=== PATIENT | female | born 1970 | race Caucasian/White ===

== ENCOUNTER 2022-08-06 00:43 | Outpatient (REF) | payer MEDICARE, MEDICAID, SELFPAY ==
[2022-08-06 10:13] LABS: Ammonia 38 umol/L (11-32)
[2022-08-06 10:32] LABS: Alanine Aminotransferase 63 U/L (14-59); Albumin Globulin Ratio 0.6; Albumin Level 2.2 g/dL (3.4-5.0); Alkaline Phosphatase 120 U/L (46-116); Aspartate Amino Transferase 42 U/L (15-37); Bilirubin Direct 0.1 mg/dL (0.0-0.2); Bilirubin Total 0.3 mg/dL (0.2-1.0); Gamma Glutamyl Transpeptidase 12 U/L (8-55); Globulin 3.6 g/dL; Total Protein 5.8 g/dL (6.4-8.2)
== END 2022-08-06 00:44 ==
LOC: LAB 00:43
DX: E11.9 Type 2 diabetes mellitus without complications (principal); G93.40 Encephalopathy, unspecified
CPT/HCPCS: 36415; 80076; 82140; 82977

== ENCOUNTER 2022-11-05 01:21 | Outpatient (REF) | payer MEDICARE, MEDICAID, SELFPAY ==
[2022-11-05 06:30] LABS: Alanine Aminotransferase 40 U/L (14-59); Albumin Globulin Ratio 0.7; Albumin Level 2.3 g/dL (3.4-5.0); Alkaline Phosphatase 115 U/L (46-116); Anion Gap 9.2; Aspartate Amino Transferase 21 U/L (15-37); Bilirubin Direct 0.1 mg/dL (0.0-0.2); Bilirubin Total 0.4 mg/dL (0.2-1.0); Carbon Dioxide 29.1 mmol/L (21.0-32.0); Chloride 99 mmol/L (98-107); Estimated GFR (African America >60 (>=60); Estimated GFR (Non-African Ame >60 (>=60); Globulin 3.5 g/dL; Potassium 4.3 mmol/L (3.5-5.1); Sodium 133 mmol/L (136-145); Total Protein 5.8 g/dL (6.4-8.2)
[2022-11-05 06:33] LABS: Basophils Percent Auto 0.3 % (0.2-2.0); Eosinophils Absolute Auto 0.8 10^3/uL (0.0-0.7); Eosinophils Percent Auto 12.9 % (0.9-7.0); Hematocrit 30.9 % (36.0-48.0); Hemoglobin 10.6 g/dL (12.0-16.0); Immature Granulocytes Abs Auto 0.01 10^3/uL (0.00-0.03); Immature Granulocytes Pct Auto 0.2 % (0.0-0.5); Lymphocytes Absolute Auto 1.3 10^3/uL (1.2-3.8); Lymphocytes Percent Auto 21.4 % (20.5-60.0); Mean Corpuscular HGB Conc 34.3 g/dL (29.9-35.2); Mean Corpuscular Hemoglobin 29.3 pg (26.7-34.0); Mean Corpuscular Volume 85.4 fL (81.0-99.0); Mean Platelet Volume 9.6 fL (9.5-13.5); Monocytes Absolute Auto 0.6 10^3/uL (0.3-0.8); Monocytes Percent Auto 9.3 % (1.7-12.0); Neutrophils Absolute Auto 3.3 10^3/uL (1.4-6.5); Neutrophils Percent Auto 55.9 % (43.0-75.0); Platelet Count 141 10^3/uL (150-450); Red Blood Count 3.62 10^6/uL (4.20-5.40); Red Cell Distribution Width 12.5 % (11.0-15.0); White Blood Count 5.9 10^3/uL (4.0-11.0)
[2022-11-05 07:51] LABS: Estimated Average Glucose 163 mg/dL; Glycohemoglobin A1C 7.3 % (4.5-6.2)
== END 2022-11-05 01:22 | disposition home or self-care (01) ==
LOC: LAB 01:21
DX: I10 Essential (primary) hypertension (principal); E11.9 Type 2 diabetes mellitus without complications; I25.9 Chronic ischemic heart disease, unspecified; E44.1 Mild protein-calorie malnutrition
CPT/HCPCS: 36415; 80051; 80076; 82565; 83036; 85025

== ENCOUNTER 2023-09-18 08:08 | Outpatient (REF) | payer MEDICARE, MEDICAID, SELFPAY ==
[2023-09-18 09:04] LABS: Basophils Percent Auto 0.2 % (0.2-2.0); Eosinophils Absolute Auto 0.5 10^3/uL (0.0-0.7); Hematocrit 34.2 % (36.0-48.0); Hemoglobin 11.4 g/dL (12.0-16.0); Immature Granulocytes Abs Auto 0.01 10^3/uL (0.00-0.03); Immature Granulocytes Pct Auto 0.2 % (0.0-0.5); Lymphocytes Absolute Auto 1.2 10^3/uL (1.2-3.8); Lymphocytes Percent Auto 28.7 % (20.5-60.0); Mean Corpuscular HGB Conc 33.3 g/dL (29.9-35.2); Mean Corpuscular Hemoglobin 29.2 pg (26.7-34.0); Mean Corpuscular Volume 87.7 fL (81.0-99.0); Mean Platelet Volume 10.3 fL (9.5-13.5); Monocytes Absolute Auto 0.3 10^3/uL (0.3-0.8); Monocytes Percent Auto 6.1 % (1.7-12.0); Neutrophils Absolute Auto 2.3 10^3/uL (1.4-6.5); Neutrophils Percent Auto 53.8 % (43.0-75.0); Platelet Count 140 10^3/uL (150-450); Red Cell Distribution Width 12.6 % (11.0-15.0); White Blood Count 4.3 10^3/uL (4.0-11.0)
[2023-09-18 09:37] LABS: Estimated Average Glucose 157 mg/dL; Glycohemoglobin A1C 7.1 % (4.5-6.2)
[2023-09-18 09:43] LABS: Alanine Aminotransferase 134 U/L (14-59); Albumin Globulin Ratio 0.8; Albumin Level 2.5 g/dL (3.4-5.0); Alkaline Phosphatase 130 U/L (46-116); Aspartate Amino Transferase 99 U/L (15-37); Bilirubin Direct 0.1 mg/dL (0.0-0.2); Bilirubin Total 0.4 mg/dL (0.2-1.0); Calcium 8.5 mg/dL (8.5-10.1); Carbon Dioxide 28.6 mmol/L (21.0-32.0); Chloride 99 mmol/L (98-107); Chol HDL Ratio 1.6; Cholesterol 102 mg/dL (<=200); Estimated GFR (African America >60 (>=60); Estimated GFR (Non-African Ame >60 (>=60); Globulin 3.3 g/dL; HDL Cholesterol 65 mg/dL (40-60); Potassium 3.6 mmol/L (3.5-5.1); Sodium 134 mmol/L (136-145); Thyroid Stimulating Hormone 1.691 uIU/mL (0.358-3.740); Total Protein 5.8 g/dL (6.4-8.2); Triglycerides 35 mg/dL (<=150)
== END 2023-09-18 08:09 | disposition home or self-care (01) ==
LOC: LAB 08:08
PROVIDERS: Visit Provider Internal Medicine
DX: E10.8 Type 1 diabetes mellitus with unspecified complications (principal)
CPT/HCPCS: 36415; 80051; 80061; 80076; 82306; 82310; 82565; 83036; 84443; 84520; 85025

== ENCOUNTER 2023-11-11 09:32 | Outpatient (REF) | payer MEDICARE, MEDICAID, SELFPAY ==
[2023-11-11 09:48] LABS: Basophils Percent Auto 0.4 % (0.2-2.0); Eosinophils Absolute Auto 0.3 10^3/uL (0.0-0.7); Eosinophils Percent Auto 6.1 % (0.9-7.0); Hematocrit 38.8 % (36.0-48.0); Hemoglobin 13.2 g/dL (12.0-16.0); Immature Granulocytes Abs Auto 0.01 10^3/uL (0.00-0.03); Immature Granulocytes Pct Auto 0.2 % (0.0-0.5); Lymphocytes Absolute Auto 1.7 10^3/uL (1.2-3.8); Mean Corpuscular Hemoglobin 29.9 pg (26.7-34.0); Mean Corpuscular Volume 87.8 fL (81.0-99.0); Mean Platelet Volume 9.9 fL (9.5-13.5); Monocytes Absolute Auto 0.4 10^3/uL (0.3-0.8); Monocytes Percent Auto 7.7 % (1.7-12.0); Neutrophils Absolute Auto 2.6 10^3/uL (1.4-6.5); Neutrophils Percent Auto 51.6 % (43.0-75.0); Platelet Count 179 10^3/uL (150-450); Red Blood Count 4.42 10^6/uL (4.20-5.40); Red Cell Distribution Width 12.4 % (11.0-15.0); White Blood Count 5.1 10^3/uL (4.0-11.0)
--- OUTSIDE RECORDS SUMMARY | 2023-11-11 09:56 | XMS_ITS | CCD ---
Author Organization [facility] Care Team Providers Care Residential Subcontractor Name Role Phone SILVESTRE, JIANLIN Unavailable Unavailable SILVESTRE, JIANLIN Unavailable Unavailable SELF, REFERRED Unavailable Unavailable VALONE, JACK Unavailable Unavailable [place] Unavailable Unavailable SILVESTRE, JIANLIN Unavailable Unavailable SILVESTRE, JIANLIN Unavailable Unavailable SILVESTRE, JIANLIN Unavailable Unavailable VALONE, JACK Unavailable Unavailable VALONE, JACK Unavailable Unavailable [place] Unavailable Unavailable SILVESTRE, JIANLIN Unavailable Unavailable YERMAL, SOORAJ G Unavailable Unavailable [place] Unavailable Unavailable SILVESTRE, JIANLIN Unavailable Unavailable SILVESTRE, JIANLIN Unavailable Unavailable VALONE, JACK Unavailable Unavailable VALONE, JACK Unavailable Unavailable SELF, REFERRED Unavailable Unavailable SILVESTRE, JIANLIN Unavailable Unavailable VALONE, JACK Unavailable Unavailable SILVESTRE, JIANLIN Unavailable Unavailable SELF, REFERRED Unavailable Unavailable ARTURO WONG Unavailable Unavailable VALONE, JACK Unavailable Unavailable MOUSSA, MOHAMAD A Unavailable Unavailable GURUNLUOGLU, NABEEL Unavailable Unavailable CECILIA, CRISTINA Unavailable Unavailable VALONE JACK CADET Unavailable Unavail able MADDY, AJITA Unavailable Unavailable MADDY, AJITA Unavailable Unavailable VALONE, DR CLEMENTE Admitting Unavailable VALONE, DR CLEMENTE Attending Unavailable VALONE, DR CLEMENTE Consulting Unavailable VALONE, DR CLEMENTE Admitting Unavailable VALONE, DR CLEMENTE Attending Unavailable VALONE, DR CLEMENTE Consulting Unavailable Allergies Allergy Classification Reported Allergen(s) Allergy Type Date of Onset Reaction(s) Facility (1 source) allopurinol Drug Allergy 6 [facility] Repository (2 sources) amoxicillin / clavulanate Drug Allergy 4 [facility] Repository (3 sources) ciprofloxacin; Translations: [CIPROFLOXACIN] Drug Allergy 4 [facility] Repository (2 sources) ibuprofen Drug Allergy 4 [facility] Repository (3 sources) metFORMIN; Translations: [METFORMIN] Drug Allergy 4 [facility] Repository (3 sources) NSAIDs; Translations: [NSAIDS (NON-STEROIDAL ANTI-INFLAMMATORY DRUG)] Drug allergy (disorder) 4 [facility] Repository (2 sources) pioglitazone Drug Allergy 4 [facility] Repository (2 sources) pregabalin Drug Allergy 4 [facility] Repository (2 sources) rosiglitazone Drug Allergy 4 [facility] Repository (1 source) Fluvirin Drug allergy (disorder) 6 [facility] Repository (1 source) pioglitazone; Translations: [PIOGLITAZONE HCL] Drug Allergy 5 [facility] Repository (1 source) pregabalin; Translations: [PREGABALIN] Drug Allergy 5 [facility] Repository (1 source) rosiglitazone; Translations: [ROSIGLITAZONE MALEATE] Drug Allergy 5 [facility] Repository (1 source) AMOXICILLIN-POT CLAVULANATE; Translations: [AMOXICILLIN-POT CLAVULANATE] Propensity to adverse reactions to drug (disorder) 5 [facility] Repository (1 source) INFLUENZA VIRUS VACCINES; Translations: [INFLUENZA VIRUS VACCINES] Propensity to adverse reactions to drug (disorder) 5 [facility] Repository (1 source) Fluvirin [id number] (PF) Drug allergy (disorder) [address] [facility] Repository (1 source) Tetanus Toxoid,Adsorbed Drug allergy (disorder) [address] [facility] Repository Problems Active Problems Problem Classification Problem Date Documented Da te Episodic/Chronic Abdominal pain (1 source) Generalized abdominal pain; Translations: [Generalized abdominal pain] Onset: 02-10-2018 Episodic Cardiac dysrhythmias (1 source) Bradycardia, unspecified; Translations: [BRADYCARDIA, UNSPECIFIED] Onset: 08-25-2016 Chronic Cataract (1 source) Age-related nuclear cataract, bilateral; Translations: [AGE-REL NUCLEAR CATARACT BILAT] Onset: 04-30-2022 Chronic Coronary atherosclerosis and other heart disease (1 source) Atherosclerotic heart disease of [place] coronary artery without angina pectoris; Translations: [ATHSCL HEART DISEASE OF [place] CORONARY ARTERY W/O ANG PCTRS] Onset: 10-09-2016 Chronic Deficiency and other anemia (2 sources) Anemia, unspecified; Translations: [ANEMIA, UNSPECIFIED] Onset: 08-25-2016 Episodic Deficiency and other anemia (1 source) Iron deficiency anemia, unspecified; Translations: [IRON DEFICIENCY ANEMIA UNSPECIFIED] Onset: 04-30-2022 Episodic Diabetes mellitus with complications (2 sources) Type 2 diabetes mellitus with hyperglycemia; Translations: [Type 2 diabetes mellitus with hypoglycemia without coma] Onset: 10-09-2016 Chronic Diabetes mellitus without complication (1 source) Type 2 diabetes mellitus without complications; Translations: [TYPE 2 DIABETES MELLITUS WITHOUT COMPLICATIONS] Onset: 08-25-2016 Chronic Epilepsy; convulsions (1 source) Epilepsy, unspecified, not intractable, without status epilepticus; Translations: [EPILEPSY, UNSP, NOT INTRACTABLE, WITHOUT STATUS EPILEPTICUS] Onset: 10-23-2016 Chronic Esophageal disorders (1 source) Gastro-esophageal reflux disease without esophagitis; Translations: [GASTRO-ESOPHAGEAL REFLUX DISEASE WITHOUT ESOPHAGITIS] Onset: 10-01-2016 Chronic Essential hypertension (1 source) Essential (primary) hypertension; Translations: [ESSENTIAL (PRIMARY) HYPERTENSION] Onset: 10-23-2016 Chronic Fracture of upper limb (1 source) Unspecified fracture of upper end of right humerus, sequela; Translations: [UNS FX UPPER RT HUMERUS SEQUELA] Onset: 04-30-2022 Episodic Infective arthritis and osteomyelitis (except that caused by tuberculosis or sexually transmitted disease) (1 source) Other osteomyelitis, other site; Translations: [Other osteomyelitis, other site] Onset: 02-10-2018 Chronic Mood disorders (1 source) Major depressive disorder, recurrent, unspecified; Translations: [MAJOR DEPRESSIVE D/O RECURRENT UNS] Onset: 04-30-2022 Chronic Nutritional deficiencies (2 sources) Vitamin D deficiency, unspecified; Translations: [Mild protein-calorie malnutrition] Onset: 04-30-2022 Chronic Other acquired deformities (4 sources) Contracture, left ankle; Translations: [CONTRACTURE LEFT ANKLE] Onset: 04-27-2022 Chronic Other acquired deformities (1 source) Contracture, left hand; Translations: [CONTRACTURE LEFT HAND] Onset: 04-30-2022 Chronic Other connective tissue disease (1 source) Muscle weakness (generalized); Translations: [MUSCLE WEAKNESS GENERALIZED] Onset: 04-30-2022 Episodic Other endocrine disorders (3 sources) Hypoglycemia, unspecified; Translations: [HYPOGLYCEMIA, UNSPECIFIED] Onset: 10-23-2016 Chronic Other gastrointestinal disorders (1 source) Gastrostomy status; Translations: [GASTROSTOMY STATUS] Onset: 10-23-2016 Chronic Other gastrointestinal disorders (1 source) Dysphagia, oral phase; Translations: [DYSPHAGIA ORAL PHASE] Onset: 04-30-2022 Episodic Other gastrointestinal disorders (1 source) Dysphagia, oropharyngeal phase; Translations: [DYSPHAGIA OROPHARYNGEAL PHASE] Onset: 04-30-2022 Episodic Other injuries and conditions due to external causes (1 source) Other injury of unspecified body region, initial encounter; Translations: [Other injury of unspecified body region, initial encounter] Onset: 02-10-2018 Other liver diseases (4 sources) Abnormal levels of other serum enzymes; Translations: [ABNORMAL LEVELS OTHER SERUM ENZYMES] Onset: 06-04-2022 Episodic Other nervous system disorders (1 source) Cognitive communication deficit; Translations: [COGNITIVE COMMUNICATION DEFICIT] Onset: 04-30-2022 Chronic Other nervous system disorders (1 source) Difficulty in walking, not elsewhere classified; Translations: [DIFFICULTY IN WALKING NEC] Onset: 04-30-2022 Chronic Other non-traumatic joint disorders (1 source) Arthropathy, unspecified; Translations: [ARTHROPATHY UNSPECIFIED] Onset: 04-30-2022 Chronic Pancreatic disorders (not diabetes) (1 source) Exocrine pancreatic insufficiency; Translations: [EXOCRINE PANCREATIC INSUFFICIENCY] Onset: 04-30-2022 Episodic Skin and subcutaneous tissue infections (5 sources) Cutaneous abscess of abdominal wall; Translations: [Local infection of the skin and subcutaneous tissue, unspecified] Onset: 10-01-2016 Episodic Substance-related disorders (1 source) Nicotine dependence, unspecified, uncomplicated; Translations: [NICOTINE DEPENDENCE, UNSPECIFIED, UNCOMPLICATED] Onset: 10-01-2016 Chronic Past or Other Problems Problem Classification Problem Date Documented Da te Episodic/Chronic Allergic reactions (4 sources) Allergy status to analgesic agent status; Translations: [Allergy status to serum and vaccine status] Onset: 08-25-2016 Episodic Complications of surgical procedures or medical care (5 sources) Infection following a procedure, initial encounter; Translations: [Postprocedural hypotension] Onset: 08-25-2016 Episodic Fluid and electrolyte disorders (1 source) Hypokalemia; Translations: [HYPOKALEMIA] Onset: 08-25-2016 Episodic Intracranial injury (1 source) Personal history of traumatic brain injury; Translations: [PERSONAL HISTORY OF TRAUMATIC BRAIN INJURY] Onset: 08-25-2016 Episodic Other aftercare (1 source) ferry terminal agent (current) use of insulin; Translations: [SNF (CURRENT) USE OF INSULIN] Onset: 08-25-2016 Episodic Other circulatory disease (1 source) Personal history of transient ischemic attack (TIA), and cerebral infarction without residual deficits; Translations: [PRSNL HX OF TIA (TIA), AND CEREB INFRC W/O RESID DEFICITS] Onset: 10-23-2016 Episodic Other gastrointestinal disorders (5 sources) Bariatric surgery status; Translations: [Fistula of intestine] Onset: 08-25-2016 Episodic Pulmonary heart disease (1 source) Personal history of pulmonary embolism; Translations: [PERSONAL HISTORY OF PULMONARY EMBOLISM] Onset: 08-25-2016 Episodic Screening or history of mental health and substance abuse (1 source) Personal history of nicotine dependence; Translations: [PERSONAL HISTORY OF NICOTINE DEPENDENCE] Onset: 10-23-2016 Episodic Unclassified (1 source) Do not resuscitate; Translations: [DO NOT RESUSCITATE] Onset: 08-25-2016 Episodic Unclassified (2 sources) Unknown / UNK(Unknown) Onset: 08-25-2016 Results Test Name Value Interpretation Reference Range Facility AMMONIAon 06-04-2022 Ammonia (P) [Moles/Vol] 15 umol/L Normal 11-32 [facility] Comment on above: Performed By: #### A MM #### [facility] [address] [address] [address] Mono Jimenez GGTon 06-04-2022 Gamma glutamyl transferase [Catalytic activity/Vol] 18 U/L Normal 8-55 [facility] Comment on above: Performed By: #### G GT, LIVER #### [facility] [address] [address] [address] Mono Jimenez LIVER PROFILEon 06-04-2022 Albumin [Mass/Vol] 2.6 g/dL Critically low 3.4-5.0 [facility] Comment on above: Performed By: #### G GT, LIVER #### [facility] [address] [address] [address] Mono Jimenez Albumin/Globulin [Mass ratio] 0.6 {ratio} Normal [facility] Comment on above: Performed By: #### G GT, LIVER #### [facility] [address] [address] [address] Mono Jimenez ALP [Catalytic activity/Vol] 121 U/L Critically high 46-116 [facility] Comment on above: Performed By: #### G GT, LIVER #### [facility] [address] [address] [address] Mono Jimenez ALT [Catalytic activity/Vol] 174 U/L Critically high 14-59 [facility] Comment on above: Performed By: #### G GT, LIVER #### [facility] [address] [address] [address] Mono Jimenez AST [Catalytic activity/Vol] 76 U/L Critically high 15-37 [facility] Comment on above: Performed By: #### G GT, LIVER #### [facility] [address] [address] [address] Mono Jimenez BILI, CONJUGATED 0.1 mg/dL Normal 0.0-0.2 [facility] Comment on above: Performed By: #### G GT, LIVER #### [facility] [address] [address] [address] Mono Jimenez Bilirubin [Mass/Vol] 0.5 mg/dL Normal 0.2-1.0 [facility] Comment on above: Performed By: #### G GT, LIVER #### [facility] [address] [address] [address] Mono Jimenez Globulin (S) [Mass/Vol] 4.1 g/dL Normal [facility] Comment on above: Performed By: #### G GT, LIVER #### [facility] [address] [address] [address] Mono Jimenez Protein [Mass/Vol] 6.7 g/dL Normal 6.4-8.2 [facility] Comment on above: Performed By: #### G GT, LIVER #### [facility] [address] [address] [address] Mono Jimenez BILIRUBIN CONJUGATED (DIRECT )on 04-27-2022 BILI, CONJUGATED 0.1 mg/dL Normal 0.0-0.2 [facility] Comment on above: Performed By: #### D VIJAY, LIPID, CMP, TSH #### [facility] [address] [place] [address] Dr. Mono Jimenez CBC AUTO DIFFon 04-27-2022 BASO # 0.0 103/ul Normal 0.0-0.1 [facility] Comment on above: Performed By: #### D VIJAY, LIPID, CMP, TSH #### [facility] [address] [place] [address] Dr. Mono Jimenez Basophils/100 WBC (Bld) 0.3 % Normal 0.2-2.0 [facility] Comment on above: Performed By: #### D VIJAY, LIPID, CMP, TSH #### [facility] [address] [place] [address] Dr. Mono Jimenez EO # 0.7 103/ul Normal 0.0-0.[address] [facility] Comment on above: Performed By: #### D VIJAY, LIPID, CMP, TSH #### [facility] [address] [place] [address] Dr. Mono Jimenez Eosinophils/100 WBC (Bld) 9.5 % Critically high 0.9-7.0 [facility] Comment on above: Performed By: #### D VIJAY, LIPID, CMP, TSH #### [facility] [address] [place] [address] Dr. Mono Jimenez Erythrocyte distribution width (RBC) [Ratio] 12.1 % Normal 11.0-15.[address] [facility] Comment on above: Performed By: #### D VIJAY, LIPID, CMP, TSH #### [facility] [address] [place] [address] Dr. Mono Jimenez Hematocrit (Bld) [Volume fraction] 37.2 % Normal 36.0-48.0 [facility] Comment on above: Performed By: #### D VIJAY, LIPID, CMP, TSH #### [facility] [address] [address] [address] Mono Jimenez Hemoglobin (Bld) [Mass/Vol] 12.5 g/dL Normal 12.0-16.0 [facility] Comment on above: Performed By: #### D VIJAY, LIPID, CMP, TSH #### [facility] [address] [address] [address] Mono Jimenez IG # 0.02 10e3/ul Normal 0.00-0.03 [facility] Comment on above: Performed By: #### D VIJAY, LIPID, CMP, TSH #### [facility] [address] [address] [address] Mono Jimenez IG % 0.3 % Normal 0.0-0.5 [facility] Comment on above: Performed By: #### D VIJAY, LIPID, CMP, TSH #### [facility] [address] [address] [address] Mono Jimenez LYMPH # 1.2 103/ul Normal 1.2-3.[address] [facility] Comment on above: Performed By: #### D VIJAY, LIPID, CMP, TSH #### [facility] [address] [address] [address] Mono Jimenez Lymphocytes/100 WBC (Bld) 16.3 % Critically low 20.5-60.0 [facility] Comment on above: Performed By: #### D VIJAY, LIPID, CMP, TSH #### [facility] [address] [address] [address] Mono Jimenez MANUAL DIFF REQ NO Normal [facility] Comment on above: Performed By: #### D VIJAY, LIPID, CMP, TSH #### [facility] [address] [address] [address] Mono Jimenez MCH (RBC) [Entitic mass] 30.2 pg Normal 26.7-34.0 [facility] Comment on above: Performed By: #### D VIJAY, LIPID, CMP, TSH #### [facility] [address] [address] [address] Mono Jimenez MCHC (RBC) [Mass/Vol] 33.6 g/dL Normal 29.9-35.[address] [facility] Comment on above: Performed By: #### D VIJAY, LIPID, CMP, TSH #### [facility] [address] [place] [address] Dr. Mono Jimenez MCV (RBC) [Entitic vol] 89.9 fL Normal 81.0-99.[address] [facility] Comment on above: Performed By: #### D VIJAY, LIPID, CMP, TSH #### [facility] [address] [place] [address] Dr. Mono Jimenez MONO # 0.5 103/ul Normal 0.3-0.[address] [facility] Comment on above: Performed By: #### D VIJAY, LIPID, CMP, TSH #### [facility] [address] [place] [address] Dr. Mono Jimenez Monocytes/100 WBC (Bld) 6.6 % Normal 1.7-12.[address] [facility] Comment on above: Performed By: #### D VIJAY, LIPID, CMP, TSH #### [facility] [address] [place] [address] Dr. Mono Jimenez NEUT # 5.0 103/ul Normal 1.4-6.[address] [facility] Comment on above: Performed By: #### D VIJAY, LIPID, CMP, TSH #### [facility] [address] [place] [address] Dr. Mono Jimenez Neutrophils/100 WBC (Bld) 67.0 % Normal 43.0-75.[address] [facility] Comment on above: Performed By: #### D VIJAY, LIPID, CMP, TSH #### [facility] [address] [place] [address] Dr. Mono Jimenez Platelet mean volume (Bld) [Entitic vol] 10.4 fL Normal 9.5-13.[address] [facility] Comment on above: Performed By: #### D VIJAY, LIPID, CMP, TSH #### [facility] [address] [place] [address] Dr. Mono Jimenez PLT 192 103/ul Normal 150-[address] [facility] Comment on above: Performed By: #### D VIJAY, LIPID, CMP, TSH #### [facility] [address] [address] [address] Mono Jimenez RBC 4.14 106/ul Critically low 4.20-5.40 [facility] Comment on above: Performed By: #### D VIJAY, LIPID, CMP, TSH #### [facility] [address] [address] [address] Mono Jimenez WBC 7.4 103/ul Normal 4.0-11.0 [facility] Comment on above: Performed By: #### D VIJAY, LIPID, CMP, TSH #### [facility] [address] [address] [address] Mono Jimenez GLYCOHEMOGLOBIN A1Con 2022 ADA RECOMMENDATION SEE BELOW Normal [facility] Comment on above: Result Comment: ADA RECOMMENDED LIMIT 4.0 - 6.0 ADA THERAPEUTIC TARGET < 7.0 ACTION SUGGESTED > 7.0 Performed By: #### A 1C #### [facility] [address] [address] [address] Mono Jimenez Glucose [Mass/Vol] 169 mg/dL Normal [facility] Comment on above: Performed By: #### A 1C #### [facility] [address] [place] [address] Dr. Mono Jimenez HbA1c (Bld) [Mass fraction] 7.5 % Critically high 4.5-6.2 [facility] Comment on above: Performed By: #### A 1C #### [facility] [address] [place] [address] Dr. Mono Jimenez LIPID PROFILEon 04-27-2022 CHOL-HDL RATIO NORM SEE BELOW Normal [facility] Comment on above: Result Comment: 3.3 - 4.4 LOW RISK 4.4 - 7.1 AVERAGE RISK 7.1 - 11.0 MODERATE RISK >11.0 HIGH RISK Performed By: #### D VIJAY, LIPID, CMP, TSH #### [facility] [address] [address] [address] Mono Jimenez Cholesterol [Mass/Vol] 131 mg/dL Normal <=200 [facility] Comment on above: Performed By: #### D VIJAY, LIPID, CMP, TSH #### [facility] [address] [address] [address] Mono Jimenez Cholesterol in HDL [Mass/Vol] 66 mg/dL Critically high 40-60 [facility] Comment on above: Performed By: #### D VIJAY, LIPID, CMP, TSH #### [facility] [address] [address] [address] Mono Jimenez Cholesterol in LDL [Mass/Vol] 47.4 mg/dL Normal [facility] Comment on above: Performed By: #### D VIJAY, LIPID, CMP, TSH #### [facility] [address] [address] [address] Mono Jimenez Cholesterol.total/C holesterol in HDL [Mass ratio] 2.0 {ratio} Normal [facility] Comment on above: Performed By: #### D VIJAY, LIPID, CMP, TSH #### [facility] [address] [address] [address] Mono Jimenez HDL NORMAL > or = 60 mg/dl - LO W CARDIOVASCULAR RISK <40 mg/dl - HIGH CARDIOVASCULAR RISK Normal [facility] Comment on above: Performed By: #### D VIJAY, LIPID, CMP, TSH #### [facility] [address] [address] [address] Mono Jimenez LDL CALC NORMAL SEE BELOW Normal [facility] Comment on above: Result Comment: <100 mg/dl OPTIMAL 100 - 129 mg/dl NEAR OR ABOVE OPTIMAL 130 - 159 mg/dl BORDERLINE HIGH 160 - 189 mg/dl HIGH >190 mg/dl VERY HIGH Performed By: #### D VIJAY, LIPID, CMP, TSH #### [facility] [address] [address] [address] Mono Jimenez Triglyceride [Mass/Vol] 88 mg/dL Normal <=[address] [facility] Comment on above: Performed By: #### D VIJAY, LIPID, CMP, TSH #### [facility] [address] [address] [address] Mono Jimenez VLDL CALC 17.6 mg/dL Normal [facility] Comment on above: Performed By: #### D VIJAY, LIPID, CMP, TSH #### [facility] [address] [place] [address] Dr. Mono Jimenez PROF 14(COMP METB)on 023 Albumin [Mass/Vol] 2.8 g/dL Critically low 3.4-5.0 [facility] Comment on above: Performed By: #### D VIJAY, LIPID, CMP, TSH #### [facility] [address] [address] [address] Mono Jimenez Albumin/Globulin [Mass ratio] 0.8 {ratio} Normal [facility] Comment on above: Performed By: #### D VIJAY, LIPID, CMP, TSH #### [facility] [address] [place] [address] Dr. Mono Jimenez ALP [Catalytic activity/Vol] 134 U/L Critically high 46-116 [facility] Comment on above: Performed By: #### D VIJAY, LIPID, CMP, TSH #### [facility] [address] [place] [address] Dr. Mono Jimenez ALT [Catalytic activity/Vol] 152 U/L Critically high 14-59 [facility] Comment on above: Performed By: #### D VIJAY, LIPID, CMP, TSH #### [facility] [address] [place] [address] Dr. Mono Jimenez Anion gap [Moles/Vol] 12.6 mmol/L Normal [facility] Comment on above: Performed By: #### D VIJAY, LIPID, CMP, TSH #### [facility] [address] [place] [address] Dr. Mono Jimenez AST [Catalytic activity/Vol] 125 U/L Critically high 15-37 [facility] Comment on above: Performed By: #### D VIJAY, LIPID, CMP, TSH #### [facility] [address] [place] [address] Dr. Mono Jimenez Bilirubin [Mass/Vol] 0.4 mg/dL Normal 0.2-1.0 [facility] Comment on above: Performed By: #### D VIJAY, LIPID, CMP, TSH #### [facility] [address] [place] [address] Dr. Mono Jimenez Calcium [Mass/Vol] 8.4 mg/dL Critically low 8.5-10.1 [facility] Comment on above: Performed By: #### D VIJAY, LIPID, CMP, TSH #### [facility] [address] [address] [address] Mono Jimenez Chloride [Moles/Vol] 104 mmol/L Normal 98-107 [facility] Comment on above: Performed By: #### D VIJAY, LIPID, CMP, TSH #### [facility] [address] [address] [address] Mono Jimenez CO2 [Moles/Vol] 28.4 mmol/L Normal 21.0-32.0 [facility] Comment on above: Performed By: #### D VIJAY, LIPID, CMP, TSH #### [facility] [address] [address] [address] Mono Jimenez Creatinine [Mass/Vol] 0.62 mg/dL Normal 0.55-1.02 [facility] Comment on above: Performed By: #### D VIJAY, LIPID, CMP, TSH #### [facility] [address] [place] [address] Dr. Mono Jimenez EGFR-AF LIBERIAN >60 Normal >=60 [facility] Comment on above: Performed By: #### D VIJAY, LIPID, CMP, TSH #### [facility] [address] [place] [address] Dr. Mono Jimenez EGFR-NON AF LIBERIAN >60 Normal >=60 [facility] Comment on above: Performed By: #### D VIJAY, LIPID, CMP, TSH #### [facility] [address] [address] [address] Mono Jimenez Globulin (S) [Mass/Vol] 3.3 g/dL Normal [facility] Comment on above: Performed By: #### D VIJAY, LIPID, CMP, TSH #### [facility] [address] [place] [address] Dr. Mono Jimenez Glucose [Mass/Vol] 250 mg/dL Critically high 74-106 [facility] Comment on above: Performed By: #### D VIJAY, LIPID, CMP, TSH #### [facility] [address] [place] [address] Dr. Mono Jimenez Potassium [Moles/Vol] 5.0 mmol/L Normal 3.5-5.1 [facility] Comment on above: Performed By: #### D VIJAY, LIPID, CMP, TSH #### [facility] [address] [place] [address] Dr. Mono Jimenez Protein [Mass/Vol] 6.1 g/dL Critically low 6.4-8.2 [facility] Comment on above: Performed By: #### D VIJAY, LIPID, CMP, TSH #### [facility] [address] [place] [address] Dr. Mono Jimenez Sodium [Moles/Vol] 140 mmol/L Normal 136-145 [facility] Comment on above: Performed By: #### D VIJAY, LIPID, CMP, TSH #### [facility] [address] [place] [address] Dr. Mono Jimenez Urea nitrogen [Mass/Vol] 28.0 mg/dL Critically high 7.0-18.0 [facility] Comment on above: Performed By: #### D VIJAY, LIPID, CMP, TSH #### [facility] [address] [place] [address] Dr. Mono Jimenez Urea nitrogen/Creatinine [Mass ratio] 45.2 mg/mg Normal [facility] Comment on above: Performed By: #### D VIJAY, LIPID, CMP, TSH #### [facility] [address] [place] [address] Dr. Mono Jimenez TSHon 04-27-2022 TSH 1.729 uIU/mL Normal 0.358-3.740 [facility] Comment on above: Performed By: #### D VIJAY, LIPID, CMP, TSH #### [facility] [address] [place] [address] Dr. Mono Jimenez VITAMIN B12on 04-27-2022 Cobalamin (Vitamin B12) [Mass/Vol] 3156.0 pg/mL Critically high 193.0-986.0 [facility] Comment on above: Performed By: #### V ITAD, VITB12 #### [facility] [address] [address] [address] Mono Jimenez VITAMIN D 25 OHon 04-27-2022 VIT D 25-OH 55.9 ng/mL Normal [facility] Comment on above: Performed By: #### V ITAD, VITB12 #### [facility] [address] [place], [place] [address] Dr. Mono Jimenez VIT D RANGES SEE BELOW Normal [facility] Comment on above: Result Comment: <20 ng/mL Vit D deficient 20 - <30 ng/mL Vit D insufficient 30 - 100 ng/mL Vit D sufficient >100 ng/mL Potential Toxicity Performed By: #### V ITAD, VITB12 #### [facility] [address] [address] [address] Mono Jimenez CNOVon 02-10-2018 CNOV Office Visit (GENSMN) -------FEMI FRANKS ([id number]) 1970 FDate Time Provider Nrwxpywhyb52/17/18 10:30 AM GANGA BARRIOS During your visit today, we recorded the following information about you: Temperature Pulse Respiration Blood pressure 97.7 degrees 71/minute 18/minute 114/64Galina Clement MD, 02/10/2018 1:14 PM SignedSURGICAL SERVICES HANDPSERVICE DATE: 02/10/2018SERVICE TIME: 12:02 [facility] PH[facility]IAN: Jose Antonio Beach, PANKAJubjectgailALTRU SPECIALTY CENTERRAYMUNDO COMPLAINT: Non-healing abdominal woundHISTORY OF PRESENT ILLNESS: Ms. Franks is a 47 year old female with ahistory of HTN, poorly controlled DM (FSBGs in 400s this morning), RNYGB (~7years ago), and anoxic brain injury following seizure who presents with familyfor a non-healing LUQ abdominal wound. The patient's J-tube was removed over ayear ago and since that time, it has not healed. She lives at [facility] and has been getting most of her care locally. Her parents called the [facility] center requesting a wound care appointment and the patient was scheduledwith plastic surgery twice. She has had multiple debridements by generalsurgeons in the past (last done 4-6 months ago). She has not seen a generalsurgeon in many months. Instead, her wound has been managed by her local woundcare clinic and SNF doctor. Her mother is unsure of what has been tried. Shenotes that they used to pack the wound, but are no longer packing it. Shebelieves they also have used a wound vac in the past. Currently they are notpacking the wound and are just changing the covering. The wound drainswhite/kimbrough material that is sometimes foul smelling. The mother denies anybilious or feculent drainage. The patient underwent a CT scan this morning,which shows possible osteomyelitis of the 7th rib underlying the non-healingwound.FUNCTIONAL STATUS: Totally dependentPAST MEDICAL HISTORYDiagnosis Date- Anoxic brain injury (HCC)- Diabetes (HCC)- Hypertension- PEG tube malfunction (HCC) pt has a peg tube- Renal disorderPAST SURGICAL HISTORYProcedure Laterality Date- GASTRIC BYPASS HXNo family history on file.Social HistorySubstance Use Topics- Smoking status: Former Smoker Packs/day: 1.00 Years: 25.00 Types: Cigarettes Quit date: 12/05/2005- Smokeless tobacco: Never Used- Alcohol use Not on file(Not in a hospital admission)No current hospital medications on file.ALLERGIESAllergen Reactions- Actos [Pioglitazone* Unknown- Augmentin [Amoxicil* Unknown- Avandia [Rosiglitaz* Unknown- Ciprofloxacin Unknown- Influenza Virus Vac* Other: See Comments- Lyrica [Pregabalin] Unknown- Metformin Unknown- Nsaids (Non-Steroid* UnknownCOMPLETE REVIEW OF SYSTEMS:Unable to assess due to underlying neurologic deficits. The patient's motherdenies any fevers, chills, nausea, vomiting, or pain surrounding the wound.ObjectivePHYSICAL EXAM:BP 114/64 Pulse 71 Temp (Src) 97.7 (Temporal Artery) Resp 18Physical Exam PerformedGENERAL: Alert, no distress, non-verbalHEAD: NC/ATABDOMEN: soft, non-tender, non-distendedNEURO: Awake, gross neuro deficits due to anoxic brain injury, moves allextremitiesWOUND: LUQ/left anterior chest wound from prior j-tube site. Sinus tractprobing to bone. White/kimbrough discharge.The remainder of the physical exam is noncontributory.DATA:Diagno stic tests reviewed for today's visit:Most recent labs and imaging results.CT abdomen/pelvisSOFT TISSUE WOUND IN THE LEFT ANTERIOR ABDOMINAL WALL WITH POSSIBLEUNDERLYING OSTEOMYELITIS OF THE LEFT SEVENTH RIB. ?CONSIDER FURTHEREVALUATION WITH THREE-PHASE BONE SCAN OR MRI.NO ACUTE INTRA-ABDOMINAL OR INTRAPELVIC FINDING.Assessment/PlanMs. Tiny is a 47 year old female with a history of HTN, poorly controlledDM (FSBGs in 400s this morning), RNYGB (~7 years ago), and anoxic brain injuryfollowing seizure who presents with family for a non-healing L anterior chestwound with possible osteomyelitis of the 7th rib.- Referral to thoracic surgery for management of wound- Recommend follow up with home radiological technologist and senior insight manager for bettermanagement of glucose and nutrition (offered to refer to [facility] provider, butpatient's mother declined)SIGNATURE: Galina Clement MD PATIENT NAME: Femi FranksDATE: February 10, 2018 : 12:02 PM PAGER/CONTACT #: [id number] Barrios MD 02/10/2018 1:14 PM SignedPatient with nonhealing wound after J tube removal and concern for underlyingosteomyelitis of the associated rib. Needs thoracic surgery consult.Angela Resendez 20171:14 PMReferring Provider: SELF [[id number]]Allergies As of Date: 02/10/2018 Noted Allergy ReactionACTOS (PIOGLITAZONE HCL) 07/16/2014 16 - UnknownAUGMENTIN (AMOXICILLIN-POT CLAVUL*07/16/2014 16 - UnknownAVANDIA (ROSIGLITAZONE MALEATE) 07/16/2014 16 - UnknownCIPROFLOXACIN 07/16/2014 16 - UnknownINFLUENZA VIRUS VACCINES 07/16/2014 14 - Other: See CommentsLYRICA (PREGABALIN) 07/16/2014 16 - UnknownMETFORMIN 07/16/2014 16 - UnknownNSAIDS (NON-STEROIDAL ANTI-INFLAM*07/16/2014 16 - UnknownDate Reviewed: 02/10/2018Reviewed by: Ganga Barrios - Fully AssessedReason for Visit: Consult [173]Primary Visit Diagnosis:Other osteomyelitis, other site (HCC) [M86.8X8] Other Visit Diagnosis:Wound infection [T14.8XXA, L08.9]Order(s):CONSULT TO THORACIC [[id number]] Order #: [id number]: 1Prescriptions as of 02/10/2018 Sig: ACETAMINOPHEN 325 MG TABLET Tylenol 325 mg tablet Take * ALBUTEROL SULFATE 1.25 MG/3 M* Use 1 Ampule via nebulizer ev* BACLOFEN 10 MG TABLET Take 10 mg by mouth three car* BASAGLAR KWIKPEN U-100 INSULI* CYANOCOBALAMIN (VIT B-12) 1,0* D62-Hujbr 1,000 mcg tablet * DEXTROMETHORPHAN 20 MG-QUINID* Nuedexta 20 mg-10 mg capsule FERROUS SULFATE 325 MG (65 MG* ferrous sulfate 325 mg (65 mg* FLUCONAZOLE 100 MG TABLET INSULIN ASPART U-100 100 UNI* Novolog U-100 Insulin aspart * INSULIN GLARGINE (U-100) 100 * Inject 15 Units subcutaneousl* [id number]-VZURNHO 36,00* Creon 36,000 unit-114,000 uni* LISINOPRIL 20 MG TABLET Take 20 mg by mouth daily at * LOPERAMIDE 1 MG/7.5 ML ORAL L* Imodium A-D 1 mg/7.5 mL oral * METOCLOPRAMIDE 10 MG TABLET Take 10 mg by mouth three car* WHITE PETROLATUM 42 % TOPICAL* Apply 1 application to affect* Patient not taking: Reported on 01/10/2018 MUPIROCIN 2 % TOPICAL CREAM Apply 1 application to affect* Patient not taking: Reported on 01/10/2018 NOVOLIN R REGULAR U-100 INSUL* NYSTATIN 100,000 UNIT/GRAM TO* Apply 1 application to affect* Patient not taking: Reported on 01/10/2018 OMEPRAZOLE 20 MG CAPSULE,ERIKA* Take 20 mg by mouth once michelle* RANITIDINE 150 MG TABLET ROPINIROLE 2 MG TABLET Take 2 mg by mouth daily at b* SERTRALINE 50 MG TABLET Take 50 mg by mouth once michelle* SKIN PROTECTIVE PASTE ([facility]) Apply 1 application to affect* Patient not taking: Reported on 01/10/2018 MULTIVITAMIN,SD-CBFG-QVJHZE LS* Take 1 tablet by mouth once d* Patient not taking: Reported on 01/10/2018 TRAZODONE 50 MG TABLET trazodone 50 mg tabletProblem List As Of Date 02/10/2018 Noted Resolved FXM SUMMARY [V999.97] INVALID FOR* More... Hypertension [I10] INVALID FOR* More... Diabetes mellitus type 2, controlled, without c*INVALID FOR* More... Anoxic brain injury (HCC) [G93.1] INVALID FOR* More... Apneic spell [R06.81] INVALID FOR* More... Dislodged jejunostomy tube (HCC) [T85.528A] INVALID FOR* More... Sri infection [B37.9] INVALID FOR* More... Diabetic foot ulcer (HCC) [E11.621, L97.509] INVALID FOR* More... Other osteomyelitis, other site (HCC) [M86.8X8] INVALID FOR* Status:Closed by GANGA BARRIOS MD on 02/10/18 [facility] 02-10-2018 CNPN Telephone (SHA) -------FEMI FRANKS ([id number]) 1970 [facility] Time Provider Ebmxtqlsfi05/17/18 CORINE TOTH During your visit today, we recorded the following information about you:Michelle Juares, RN, RN 02/12/2018 9:28 AM AddendumThoracic Surgery Consultation - review of records for appointment schedulingReceived medical records from the office ofGanga Barrios MD[address] [facility] [address]Dqmym: [phone]:Patient is being referred to Dr. Toth by Dr. Barrios for 7th RibOsteomyelitisRecords in [facility] .Imaging:CT Abdomen/Pelvis 02/10/18:IMPRESSION:SOFT TISSUE WOUND IN THE LEFT ANTERIOR ABDOMINAL WALL WITH POSSIBLEUNDERLYING OSTEOMYELITIS OF THE LEFT SEVENTH RIB. ?CONSIDER FURTHEREVALUATION WITH THREE-PHASE BONE SCAN OR MRI.NO ACUTE INTRA-ABDOMINAL OR INTRAPELVIC FINDING..PFT's: none.MRI Chest: ordered.Consults:Dr. Cifuentes ([facility])A/P:Non healing wound of LUQ at previous j-tube site with hx of abd surgery- probes deep to abd- unclear if communicates with bowel- has not scheduled f/u with gen surg- explained extensively to father the workup needed to r/o underlying issuesand ensure safety of the patient- agree with referral to general surgery for evaluation and management- consult to general surgery previously placed 12/05/2017- will have front desk auxiliary coordinate appt w/gen surg as soon as possibleHistory of:No family history on file.PAST MEDICAL HISTORYDiagnosis Date- Anoxic brain injury (HCC)- Diabetes (HCC)- Hypertension- PEG tube malfunction (HCC) pt has a peg tube- Renal disorderPAST SURGICAL HISTORYProcedure Laterality Date- GASTRIC BYPASS HXSocial History Marital status: Spouse name: Years of education: Number of children:Social History Main Topics Smoking status: Former Smoker Packs/day: 1.00 Years: 25.00 Types: Cigarettes Quit date: 12/05/2005 Smokeless tobacco: Never UsedMRI Chest, PFTs and consult to Dr. Toth.Teri Adams, RN, RN 02/12/2018 9:41 AM SignedAddended by: MICHELLE JUARES on: 02/12/2018 09:41 AM Modules accepted: OrdersReferring Provider: GANGA BARRIOS [[id number]]Allergies As of Date: 02/10/2018 Noted Allergy ReactionACTOS (PIOGLITAZONE HCL) 07/16/2014 16 - UnknownAUGMENTIN (AMOXICILLIN-POT CLAVUL*07/16/2014 16 - UnknownAVANDIA (ROSIGLITAZONE MALEATE) 07/16/2014 16 - UnknownCIPROFLOXACIN 07/16/2014 16 - UnknownINFLUENZA VIRUS VACCINES 07/16/2014 14 - Other: See CommentsLYRICA (PREGABALIN) 07/16/2014 16 - UnknownMETFORMIN 07/16/2014 16 - UnknownNSAIDS (NON-STEROIDAL ANTI-INFLAM*07/16/2014 16 - UnknownDate Reviewed: 02/10/2018Reviewed by: Ganga Barrios - Fully AssessedReason for Visit: Consult [173]Primary Visit Diagnosis:Rib lesion [M89.9] Other Visit Diagnosis:Encounter for observation for other suspected diseases and conditions ruled out [Z03.89]Order(s):MRI CHEST WO IVCON [[id number]] Order #: [id number] FUTURE SPIROMETRY WITH DILATOR IF OBSTRUCTED [[id number]] Order #: [id number] FUTURE LUNG DIFFUSION CAPACITY (DLCO) [[id number]] Order #: [id number] FUTUREPrescriptions as of 02/10/2018 Sig: ACETAMINOPHEN 325 MG TABLET Tylenol 325 mg tablet Take * ALBUTEROL SULFATE 1.25 MG/3 M* Use 1 Ampule via nebulizer ev* BACLOFEN 10 MG TABLET Take 10 mg by mouth three car* BASAGLAR KWIKPEN U-100 INSULI* CYANOCOBALAMIN (VIT B-12) 1,0* L28-Iazxb 1,000 mcg tablet * DEXTROMETHORPHAN 20 MG-QUINID* Nuedexta 20 mg-10 mg capsule FERROUS SULFATE 325 MG (65 MG* ferrous sulfate 325 mg (65 mg* FLUCONAZOLE 100 MG TABLET INSULIN ASPART U-100 100 UNI* Novolog U-100 Insulin aspart * INSULIN GLARGINE (U-100) 100 * Inject 15 Units subcutaneousl* [id number]-QCUIVXRM-XVIUJFK 36,00* Creon 36,000 unit-114,000 uni* LISINOPRIL 20 MG TABLET Take 20 mg by mouth daily at * LOPERAMIDE 1 MG/7.5 ML ORAL L* Imodium A-D 1 mg/7.5 mL oral * METOCLOPRAMIDE 10 MG TABLET Take 10 mg by mouth three car* WHITE PETROLATUM 42 % TOPICAL* Apply 1 application to affect* Patient not taking: Reported on 01/10/2018 MUPIROCIN 2 % TOPICAL CREAM Apply 1 application to affect* Patient not taking: Reported on 01/10/2018 NOVOLIN R REGULAR U-100 INSUL* NYSTATIN 100,000 UNIT/GRAM TO* Apply 1 application to affect* Patient not taking: Reported on 01/10/2018 OMEPRAZOLE 20 MG CAPSULE,ERIKA* Take 20 mg by mouth once michelle* RANITIDINE 150 MG TABLET ROPINIROLE 2 MG TABLET Take 2 mg by mouth daily at b* SERTRALINE 50 MG TABLET Take 50 mg by mouth once michelle* SKIN PROTECTIVE PASTE ([facility]) Apply 1 application to affect* Patient not taking: Reported on 01/10/2018 MULTIVITAMIN,NP-IGTV-XHEPLJ LS* Take 1 tablet by mouth once d* Patient not taking: Reported on 01/10/2018 TRAZODONE 50 MG TABLET trazodone 50 mg tabletProblem List As Of Date 02/10/2018 Noted Resolved FXM SUMMARY [V999.97] INVALID FOR* More... Hypertension [I10] INVALID FOR* More... Diabetes mellitus type 2, controlled, without c*INVALID FOR* More... Anoxic brain injury (HCC) [G93.1] INVALID FOR* More... Apneic spell [R06.81] INVALID FOR* More... Dislodged jejunostomy tube (HCC) [T85.528A] INVALID FOR* More... Sri infection [B37.9] INVALID FOR* More... Diabetic foot ulcer (HCC) [E11.621, L97.509] INVALID FOR* More... Other osteomyelitis, other site (HCC) [M86.8X8] INVALID FOR* Status:Closed by MICHELLE JUARES on 02/10/18 Normal [facility] CT ABD/PEL WO IVCONon 2017 CT ABD/PEL WO IVCON * * *Final Report* * *DATE OF EXAM: Feb 10 2018 10:46AM [facility] 0531 - CT ABD/PEL WO IVCON / REASON: Generalized abdominal pain * * * * Physician Interpretation * * * * EXAMINATION: CT ABDOMEN AND PELVIS WITHOUT IV CONTRASTCLINICAL HISTORY: 47 year old female who presents for evaluation of nonhealing wound along prior feeding tube site.TECHNIQUE: Non-IV contrast imaging of the abdomen and pelvis was performed using standard technique, scanning from just above the dome of the diaphragm to the symphysis pubis. Unenhanced imaging is limited for the evaluation of some intra-abdominal and pelvic pathology.MQ: [id number]: NoneCT Radiation dose: Integrated Dose-length product (DLP) for this visit = 346 mGy*cm.CT Dose Reduction Employed: Automated exposure control (AEC)COMPARISON: None.RESULT:Abdomen / Pelvis:Liver: Unremarkable unenhanced liver.Biliary: The gallbladder is unremarkable.Spleen: No splenomegaly.Pancreas: Unremarkable.Adrenals: No mass.Kidneys: No calculus, hydronephrosis or finding to suggest a cyst or mass in the unenhanced kidney.GI Tract: No bowel dilation. Normal appendix. Prior gastric bypass.Lymph Nodes: No lymphadenopathy.Mesentery/p eritoneum: No ascites.Retroperitoneum: No mass.Vasculature: Arterial atherosclerotic disease without aneurysm.Pelvis: No mass or ascites.Bones/Soft Tissues: Open soft tissue wound in the left anterior abdominal wall (2:34). There is subtle sclerosis and possible erosion of the left seventh rib anteriorly (2:33).Lower thorax: Mild bibasilar atelectasis.IMPRESSION:SOFT TISSUE WOUND IN THE LEFT ANTERIOR ABDOMINAL WALL WITH POSSIBLE UNDERLYING OSTEOMYELITIS OF THE LEFT SEVENTH RIB. CONSIDER FURTHER EVALUATION WITH THREE-PHASE BONE SCAN OR MRI.NO ACUTE INTRA-ABDOMINAL OR INTRAPELVIC FINDING.Radio Program Checker: BABAR Transcribe Date/Time: Feb 10 2018 11:03ADictated by : YOUSIF CHAN MDThis examination was interpreted and the report reviewed and electronically signed by: YOUSIF CHAN MD on Feb 10 2018 11:18AM [id number] Normal [facility] HISTORY PHYSICALon HISTORY PHYSICAL HNO ID: [id number] thor: Galina (Emma Clement, MDService: (none)Author Type: ResidentType: HANDPFiled: 02/10/2018 1:14 PMNote Text:SURGICAL SERVICES HANDPSERVICE DATE: 02/10/2018SERVICE TIME: 12:02 [facility] PHYSICIAN: Jose Antonio Beach, PANKAJubjectiveCHIRAYMUNDO COMPLAINT: Non-healing abdominal woundHISTORY OF PRESENT ILLNESS: Ms. Franks is a 47 year old female with ahistory of HTN, poorly controlled DM (FSBGs in 400s this morning), RNYGB(~7 years ago), and anoxic brain injury following seizure who presentswith family for a non-healing LUQ abdominal wound. The patient's J-tubewas removed over a year ago and since that time, it has not healed. [facility] and has been getting most of her carelocally. Her [facility] called [facility] call center requesting a wound careappointment and the patient was scheduled with plastic surgery twice. Lucíahajere had multiple debridements by general surgeons in the past (last done4-6 months ago). She has not seen a general surgeon in many months.Instead, her wound has been managed by her local wound care clinic and SNFdoctor. Her mother is unsure of what has been tried. She notes that theyused to pack the wound, but are no longer packing it. She believes theyalso have used a wound vac in the past. Currently they are not packing thewound and are just changing the covering. The wound drains white/graymaterial that is sometimes foul smelling. The mother denies any bilious orfeculent drainage. The patient underwent a CT scan this morning, whichshows possible osteomyelitis of the 7th rib underlying the non-healingwound.FUNCTIONAL STATUS: Totally dependentPAST MEDICAL HISTORYDiagnosis Date- Anoxic brain injury (HCC)- Diabetes (HCC)- Hypertension- PEG tube malfunction (HCC) pt has a peg tube- Renal disorderPAST SURGICAL HISTORYProcedure Laterality Date- GASTRIC BYPASS HXNo family history on file.Social HistorySubstance Use Topics- Smoking status: Former Smoker Packs/day: 1.00 Years: 25.00 Types: Cigarettes Quit date: 12/05/2005- Smokeless tobacco: Never Used- Alcohol use Not on file(Not in a hospital admission)No current hospital medications on file.ALLERGIESAllergen Reactions- Actos [Pioglitazone* Unknown- Augmentin [Amoxicil* Unknown- Avandia [Rosiglitaz* Unknown- Ciprofloxacin Unknown- Influenza Virus Vac* Other: See Comments- Lyrica [Pregabalin] Unknown- Metformin Unknown- Nsaids (Non-Steroid* UnknownCOMPLETE REVIEW OF SYSTEMS:Unable to assess due to underlying neurologic deficits. The patient'smother denies any fevers, chills, nausea, vomiting, or pain surroundingthe wound.ObjectivePHYSICAL EXAM:BP 114/64 Pulse 71 Temp (Src) 97.7 (Temporal Artery) Resp 18Physical Exam PerformedGENERAL: Alert, no distress, non-verbalHEAD: NC/ATABDOMEN: soft, non-tender, non-distendedNEURO: Awake, gross neuro deficits due to anoxic brain injury, moves allextremitiesWOUND: LUQ/left anterior chest wound from prior j-tube site. Sinus tractprobing to bone. White/kimbrough discharge.The remainder of the physical exam is noncontributory.DATA:Diagno stic tests reviewed for today's visit:Most recent labs and imaging results.CT abdomen/pelvisSOFT TISSUE WOUND IN THE LEFT ANTERIOR ABDOMINAL WALL WITH POSSIBLEUNDERLYING OSTEOMYELITIS OF THE LEFT SEVENTH RIB. ?CONSIDER FURTHEREVALUATION WITH THREE-PHASE BONE SCAN OR MRI.NO ACUTE INTRA-ABDOMINAL OR INTRAPELVIC FINDING.Assessment/PlanMs. Tiny is a 47 year old female with a history of HTN, poorlycontrolled DM (FSBGs in 400s this morning), RNYGB (~7 years ago), andanoxic brain injury following seizure who presents with family for anon-healing L anterior chest wound with possible osteomyelitis of the 7thrib.- Referral to thoracic surgery for management of wound- Recommend follow up with home radiological technologist and senior insight manager forbetter management of glucose and nutrition ([facility] but patient's mother declined)SIGNATURE: Galina Clement MD PATIENT NAME: Femi FranksDATE: February 10, 2018 : 12:02 PM PAGER/CONTACT #: [phone] Normal [facility] PROGRESSon 02-10-2018 Protein mass conc HNO ID: [id number] thor: Ganga Zavaletarvice: (none)Author Type: PhysicianType: Progress NotesFiled: 02/10/2018 1:14 PMNote Text:Patient with nonhealing wound after J tube removal and 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 Needs thoracic surgeryconsult.Angela Resendez 20171:14 PM Normal [facility] Protein mass conc HNO ID: [id number] thor: Mino Wilkinson CtService: (none)Author Type: (none)Type: Progress NotesFiled: 02/10/2018 10:43 AMNote Text: Radiology Service Progress NotePATIENT NAME: Femi FranksMRN: [id number] OF SERVICE: February 10, 2018TIME: 10:39 AMPATIENT IDENTITY VERIFICATION COMPLETED USING TWO (2) METHODS: Patientconfirmed name verbally and ID band matches..PATIENT GENDER DATA: Female. status: : NoBreastfeeding status: NO.PATIENT RELEVANT IMPLANT DATA REVIEWED: Not ApplicableRADIOLOGY DEPARTMENT: CT; Exam(s) Completed: Abdomen/PelvisPERIPHERAL IV DATA: Not applicableSIGNED BY: Mino Wilkinson CtDecember 2017 10:39 AM Normal [facility] CNOVon 01-10-2018 CNOV Office Visit (PLASMN) -------FEMI FRANKS ([id number]) 1970 FDate Time Provider Wzdempgyog81/16/18 11:00 AM CRISTINA BROOKS During your visit today, we recorded the following information about you: Temperature Pulse Blood pressure 98 degrees 76/minute 85/55Christi MD Cecilia 02/09/2018 9:57 PM SignedA/P:Non healing wound of LUQ at previous j-tube site with hx of abd surgery- probes deep to abd- unclear if communicates with bowel- has not scheduled f/u with gen surg- explained extensively to father the workup needed to r/o underlying issuesand ensure safety of the patient- agree with referral to general surgery for evaluation and management- consult to general surgery previously placed 12/05/2017- will have front desk auxiliary coordinate appt w/gen surg as soon as /f; presenting for evaluation of non healing wound at j-tube site. Wasevaluated by our partner in plastics who referred for eval by general surgeryas fistula could not be ruled out on exam. Pt presents today with her father -she is non verbal. Pt called the call center seeking appointment for wound careand again was re-scheduled in plastic surgery. J-tube has been removed forapprox 1.5y. Wound is persistent, s/p multiple debridements. Have been packingit with antibiotic gauze. Father notes a wound/abd infection that requiredadditional surgery. Followed at [facility] by wound doctor, father unsure what othermedical care patient has received. Father is concerned nutrition is notoptimized, s/p intestinal bypass now with 20lb weight loss in the last year.States abd wound is draining quite a bit at times. States drainage isbrownish.ROS:unable to participate in ROSBP 85/55 Pulse 76 Temp 98GEN: Well appearing, alert, in no acute distress, well-hydrated, wellnourished. and ThinHENT: NC/ATEYE: sclerae clear, conjunctivae pinkNECK: suppleCHEST: symmetric unlabored exp of the chest with respEXT: bilat UE without edemaNEURO: AwakeSKIN: LUQ abd wound at j-tube site with probing sinus tract of unknown depth.Rommel Cottrell, [facility]ITALPlastic Surgery - Surgical Wound Service; [id number] 5pm and on weekends, please page on-call plastics at pager [phone].[facility] STAFF PHYSICIAN NOTE OF PERSONAL INVOLVEMENT IN CAREI have reviewed the progress note obtained and documented by the nursepractitioner and I personally participated in the asencio components. I havediscussed the case and management of the patient's care. The following commentsrevise or confirm relevant asencio components of their note.IMPRESSION: This is a 47 year old female who presents for evaluation ofnonhealing wound along prior feeding tube site. The wound probes deep- likelypersistent fistula- discussed with patient and father as above. Also likelysignificant malnutrition impairing healing. I reviewed that dressing carealone unlikely to heal wound- needs to see general surgery for fistula workup.PLAN: as above, patient to see general surgery todaySIGNATURE: DEMETRIA KnappAGER: [id number] of SERVICE: January 10, 2018TIME of SERVICE: 11:39 AMReferring Provider: JACK ROQUE JR [[id number]]Allergies As of Date: 01/10/2018 Noted Allergy ReactionACTOS (PIOGLITAZONE HCL) 07/16/2014 16 - UnknownAUGMENTIN (AMOXICILLIN-POT CLAVUL*07/16/2014 16 - UnknownAVANDIA (ROSIGLITAZONE MALEATE) 07/16/2014 16 - UnknownCIPROFLOXACIN 07/16/2014 16 - UnknownINFLUENZA VIRUS VACCINES 07/16/2014 14 - Other: See CommentsLYRICA (PREGABALIN) 07/16/2014 16 - UnknownMETFORMIN 07/16/2014 16 - UnknownNSAIDS (NON-STEROIDAL ANTI-INFLAM*07/16/2014 16 - UnknownDate Reviewed: 07/22/2014Reviewed by: Marianne Handley) ZORAIDA Chew - Fully AssessedReason for Visit: Consult [173]Primary Visit Diagnosis:Wound of abdomen [S31.109A] 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] Anoxic brain injury (HCC) [G93.1]Prescriptions as of 01/10/2018 Sig: ACETAMINOPHEN 325 MG TABLET Tylenol 325 mg tablet Take * ALBUTEROL SULFATE 1.25 MG/3 M* Use 1 Ampule via nebulizer ev* BACLOFEN 10 MG TABLET Take 10 mg by mouth three car* BASAGLAR KWIKPEN U-100 INSULI* CYANOCOBALAMIN (VIT B-12) 1,0* [id number] 1,000 mcg tablet * DEXTROMETHORPHAN 20 MG-QUINID* Nuedexta 20 mg-10 mg capsule FERROUS SULFATE 325 MG (65 MG* ferrous sulfate 325 mg (65 mg* FLUCONAZOLE 100 MG TABLET INSULIN ASPART U-100 100 UNI* Novolog U-100 Insulin aspart * INSULIN GLARGINE (U-100) 100 * Inject 15 Units subcutaneousl* DKICCY-TPXAYWUS-MYDRIFU 36,00* Creon 36,000 unit-114,000 uni* LISINOPRIL 20 MG TABLET Take 20 mg by mouth daily at * LOPERAMIDE 1 MG/7.5 ML ORAL L* Imodium A-D 1 mg/7.5 mL oral * METOCLOPRAMIDE 10 MG TABLET Take 10 mg by mouth three car* WHITE PETROLATUM 42 % TOPICAL* Apply 1 application to affect* Patient not taking: Reported on 01/10/2018 MUPIROCIN 2 % TOPICAL CREAM Apply 1 application to affect* Patient not taking: Reported on 01/10/2018 NOVOLIN R REGULAR U-100 INSUL* NYSTATIN 100,000 UNIT/GRAM TO* Apply 1 application to affect* Patient not taking: Reported on 01/10/2018 OMEPRAZOLE 20 MG CAPSULE,ERIKA* Take 20 mg by mouth once michelle* RANITIDINE 150 MG TABLET ROPINIROLE 2 MG TABLET Take 2 mg by mouth daily at b* SERTRALINE 50 MG TABLET Take 50 mg by mouth once michelle* SKIN PROTECTIVE PASTE (CCF) Apply 1 application to affect* Patient not taking: Reported on 01/10/2018 MULTIVITAMIN,NA-[id number]-MFQKSB LS* Take 1 tablet by mouth once d* Patient not taking: Reported on 01/10/2018 TRAZODONE 50 MG TABLET trazodone 50 mg tabletProblem List As Of Date 01/10/2018 Noted Resolved FXM SUMMARY [V999.97] INVALID FOR* More... Hypertension [I10] INVALID FOR* More... Diabetes mellitus type 2, controlled, without c*INVALID FOR* More... Anoxic brain injury (HCC) [G93.1] INVALID FOR* More... Apneic spell [R06.81] INVALID FOR* More... Dislodged jejunostomy tube (HCC) [T85.528A] INVALID FOR* More... Sri infection [B37.9] INVALID FOR* More... Diabetic foot ulcer (HCC) [E11.621, L97.509] INVALID FOR* More... Status:Closed by CRISTINA BROOKS MD on 02/09/18 [facility] PROGRESSon 01-10-2018 Protein mass conc HNO ID: [id number] thor: Cristina Awadervice: (none)Author Type: PhysicianType: Progress NotesFiled: 02/09/2018 9:57 PMNote Text:A/P:Non healing wound of LUQ at previous j-tube site with hx of abd surgery- probes deep to abd- unclear if communicates with bowel- has not scheduled f/u with gen surg- explained extensively to father the workup needed to r/o underlyingissues and ensure safety of the patient- agree with referral to general surgery for evaluation and management- consult to general surgery previously placed 12/05/2017- will have front desk auxiliary coordinate appt w/gen surg as soon as [id number]/f; presenting for evaluation of non healing wound at j-tube site. Wasevaluated by our partner in plastics who referred for eval by generalsurgery as fistula could not be ruled out on exam. Pt presents today withher father - she is non verbal. Pt called the call center seekingappointment for wound care and again was re-scheduled in plastic surgery.J-tube has been removed for approx 1.5y. Wound is persistent, s/p multipledebridements. Have been packing it with antibiotic gauze. Father notes awound/abd infection that required additional surgery. Followed at [facility] bywound doctor, father unsure what other medical care patient has received.Father is concerned nutrition is not optimized, s/p intestinal bypass now with 20lb weight loss in the last year. States abd wound is draining quite a bit at times. States drainage is brownish.ROS:unable to participate in ROSBP 85/55 Pulse 76 Temp 98GEN: Well appearing, alert, in no acute distress, well-hydrated, wellnourished. and ThinHENT: NC/ATEYE: sclerae clear, conjunctivae pinkNECK: suppleCHEST: symmetric unlabored exp of the chest with respEXT: bilat UE without edemaNEURO: AwakeSKIN: LUQ abd wound at j-tube site with probing sinus tract of unknowndepth.Rommel Cottrell CNPPlastic Surgery - Surgical Wound Service; [id number] 5pm and on weekends, please page on-call plastics at pager [phone].[facility] STAFF PHYSICIAN NOTE OF PERSONAL INVOLVEMENT IN CAREI have reviewed the progress note obtained and documented by the nursepractitioner and I personally participated in the asencio components. I havediscussed the case and management of the patient's care. The followingcomments revise or confirm relevant asencio components of their note.IMPRESSION: This is a 47 year old female who presents for evaluation ofnonhealing wound along prior feeding tube site. 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 I reviewed thatdressing care alone unlikely to heal wound- needs to see general surgeryfor fistula workup.PLAN: as above, patient to see general surgery todaySIGNATURE: Cristina Brooks, MDPAGER: [id number] of SERVICE: January 10, 2018TIME of SERVICE: 11:39 AM Normal [facility] CNOVon 12-05-2017 CNOV Office Visit (PLASMN) -------FEMI FRANKS ([id number]) 1970 FDate Time Provider Zzzumcnlwd34/11/18 10:15 AM RAJWINDER CAMPOS (ZORAIDA) SOSA During your visit today, we recorded the following information about you: Temperature Pulse Blood pressure 96.8 degrees 60/minute 109/64Afsha LEW Campos.BLENDER OPERATOR 12/05/2017 5:32 PM SignedNew Patient Evaluation/ExaminationPATIE NT NAME: Femi FranksMRN: [id number] BY: Self-referredCHIEF COMPLAINT: G tube woundHPI: Femi Franks is a 47 year old female presenting for a new patientconsult. She has a wound where her J tube was. It was removed 1 year ago andnow she has a wound. She has had this area debrided in the OR a couple timesbut still with persistent wound.DM - BG sometimes 40-500.It is unclear why her general surgeon back home has not continued to treat thisissue.PAST MEDICAL HISTORYDiagnosis Date- Anoxic brain injury (HCC)- Diabetes (HCC)- Hypertension- PEG tube malfunction (HCC) pt has a peg tube- Renal disorderPAST SURGICAL HISTORY:PAST SURGICAL HISTORYProcedure Laterality Date- GASTRIC BYPASS HXFAMILY HISTORY: No family history on file.SOCIAL HISTORY: Social History Marital status: Spouse name: Years of education: Number of children:Social History Main Topics Smoking status: Former Smoker Packs/day: 1.00 Years: 25.00 Types: Cigarettes Quit date: 12/05/2005 Smokeless tobacco: Never UsedMEDICATIONS:Prior to Admission MedicationsCurrent Outpatient Prescriptions on File Prior to Visit:therapeutic multivitamin-minerals (THEREMS-M) 27-0.4 mg tab Take 1 tablet bymouth once daily.mineral oil/hydrophil petrolatum (HYDROPHOR) 42 % oint Apply 1 application toaffected area once daily.skin protective paste pste Apply 1 application to affected area twice daily.mupirocin (BACTROBAN) 2 % cream Apply 1 application to affected area threetimes daily.nystatin (MYCOSTATIN) ointment Apply 1 application to affected area three timesdaily.insulin glargine (LANTUS) 100 unit/mL injection Inject 15 Units subcutaneouslytwice daily.lisinopril (ZESTRIL, PRINIVIL) 20 mg tablet Take 20 mg by mouth daily atbedtime.rOPINIRole (REQUIP) 2 mg tablet Take 2 mg by mouth daily at bedtime.metoclopramide HCl (REGLAN) 10 mg tablet Take 10 mg by mouth three times dailywith meals.baclofen (LIORESAL) 10 mg tablet Take 10 mg by mouth three times daily.omeprazole (PRILOSEC) 20 mg capsule Take 20 mg by mouth once daily.sertraline (ZOLOFT) 50 mg tablet Take 50 mg by mouth once daily.Albuterol Sulfate 1.25 mg/3 mL nebulizer solution Use 1 Ampule via nebulizerevery 4 hours as needed.No current facility-administered medications on file prior to visit.ALLERGIES:ALLERGIESAl lergen Reactions- Actos [Pioglitazone* Unknown- Augmentin [Amoxicil* Unknown- Avandia [Rosiglitaz* Unknown- Ciprofloxacin Unknown- Influenza Virus Vac* Other: See Comments- Lyrica [Pregabalin] Unknown- Metformin Unknown- Nsaids (Non-Steroid* UnknownCOMPLETE REVIEW OF SYSTEMS:SKIN: See HPIpatient is unable to contribute to ROSAll other reviewed and negative other than HPI.PHYSICAL EXAM:VItals: BP 109/64 Pulse 60 Temp 36 ?C (96.8 ?F)PHYSICAL EXAMINATION:General appearance: Thin, Cachectic and in no acute distressSkin: Skin color, texture, turgor normal, no suspicious rashes or lesions, LUQwith previously removed J tube site - ?gastric contents upon expression.ASSESSMENT AND PLAN:47 y/o F with wound on abdomen 2/2 previous J tube site-unclear why there is such a large amount of drainage, cannot completely r/ofistula and history seems incomplete-will refer to general surgery for further guidance and management at [facility]-possible external gastric fistulaSeen and discussed with staff surgeon, Dr. Nabeel Viramontes, who is inagreement with above plan.Rajwinder Campos APRN.CNPOctober 20175:29 PMThis visit lasted for more than 30 minutes and greater than 50% of the visitwas involved in the discussion of the options for treatment.Referring Provider: SELF [[id number]]Allergies As of Date: 12/05/2017 Noted Allergy ReactionACTOS (PIOGLITAZONE HCL) 07/16/2014 16 - UnknownAUGMENTIN (AMOXICILLIN-POT CLAVUL*07/16/2014 16 - UnknownAVANDIA (ROSIGLITAZONE MALEATE) 07/16/2014 16 - UnknownCIPROFLOXACIN 07/16/2014 16 - UnknownINFLUENZA VIRUS VACCINES 07/16/2014 14 - Other: See CommentsLYRICA (PREGABALIN) 07/16/2014 16 - UnknownMETFORMIN 07/16/2014 16 - UnknownNSAIDS (NON-STEROIDAL ANTI-INFLAM*07/16/2014 16 - UnknownDate Reviewed: 07/22/2014Reviewed by: Marianne ([facility]) ZORAIDA Chew - Fully AssessedReason for Visit: Consult [173]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] Other Visit Diagnoses:Diabetes mellitus type 2, uncontrolled, without complications (HCC) [E11.65] Anoxic brain injury (HCC) [G93.1]Order(s):CONSULT TO GENERAL SURGERY [9007] Order #: [id number]: 1Prescriptions as of 12/05/2017 Sig: MULTIVITAMIN,[id number] LS* Take 1 tablet by mouth once d* WHITE PETROLATUM 42 % TOPICAL* Apply 1 application to affect* SKIN PROTECTIVE PASTE (CCF) Apply 1 application to affect* MUPIROCIN 2 % TOPICAL CREAM Apply 1 application to affect* NYSTATIN 100,000 UNIT/GRAM TO* Apply 1 application to affect* INSULIN GLARGINE (U-100) 100 * Inject 15 Units subcutaneousl* LISINOPRIL 20 MG TABLET Take 20 mg by mouth daily at * ROPINIROLE 2 MG TABLET Take 2 mg by mouth daily at b* METOCLOPRAMIDE 10 MG TABLET Take 10 mg by mouth three car* BACLOFEN 10 MG TABLET Take 10 mg by mouth three car* OMEPRAZOLE 20 MG CAPSULE,ERIKA* Take 20 mg by mouth once michelle* SERTRALINE 50 MG TABLET Take 50 mg by mouth once michelle* ALBUTEROL SULFATE 1.25 MG/3 M* Use 1 Ampule via nebulizer ev*Problem List As Of Date 12/05/2017 Noted Resolved FXM SUMMARY [V999.97] INVALID FOR* Priority: Very Severe More... Hypertension [I10] INVALID FOR* Priority: B More... Diabetes mellitus type 2, controlled, without c*INVALID FOR* Priority: A More... Anoxic brain injury (HCC) [G93.1] INVALID FOR* Priority: Mild More... Apneic spell [R06.81] INVALID FOR* Priority: Severe More... Dislodged jejunostomy tube (HCC) [T85.528A] INVALID FOR* Priority: Severe More... Sri infection [B37.9] INVALID FOR* Priority: Moderate More... Diabetic foot ulcer (HCC) [E11.621, L97.509] INVALID FOR* More... Status:Closed by RAJWINDER CAMPOS CNP on 12/05/17 Normal [facility] PROGRESSon 12-05-2017 Protein mass conc HNO ID: [id number] thor: Rajwinder (Zoraida) HussainiService: (none)Author Type: Nurse PractitionerType: Progress NotesFiled: 12/05/2017 5:32 PMNote Text:New Patient Evaluation/ExaminationPATIE NT NAME: Femi FranksMRN: [id number] BY: Self-referredCHIEF COMPLAINT: G tube woundHPI: Femi Franks is a 47 year old female presenting for a newpatient consult. She has a wound where her J tube was. It was removed 1year ago and now she has a wound. She has had this area debrided in the ORa couple times but still with persistent wound.DM - BG sometimes 40-500.It is unclear why her general surgeon back home has not continued to treatthis issue.PAST MEDICAL HISTORYDiagnosis Date- Anoxic brain injury (HCC)- Diabetes (HCC)- Hypertension- PEG tube malfunction (HCC) pt has a peg tube- Renal disorderPAST SURGICAL HISTORY:PAST SURGICAL HISTORYProcedure Laterality Date- GASTRIC BYPASS HXFAMILY HISTORY: No family history on file.SOCIAL HISTORY: Social History Marital status: Spouse name: Years of education: Number of children:Social History Main Topics Smoking status: Former Smoker Packs/day: 1.00 Years: 25.00 Types: Cigarettes Quit date: 12/05/2005 Smokeless tobacco: Never UsedMEDICATIONS:Prior to Admission MedicationsCurrent Outpatient Prescriptions on File Prior to Visit:therapeutic multivitamin-minerals (THEREMS-M) 27-0.4 mg tab Take 1 tabletby mouth once daily.mineral oil/hydrophil petrolatum (HYDROPHOR) 42 % oint Apply 1 applicationto affected area once daily.skin protective paste pste Apply 1 application to affected area twicedaily.mupirocin (BACTROBAN) 2 % cream Apply 1 application to affected area threetimes daily.nystatin (MYCOSTATIN) ointment Apply 1 application to affected area threetimes daily.insulin glargine (LANTUS) 100 unit/mL injection Inject 15 Unitssubcutaneously twice daily.lisinopril (ZESTRIL, PRINIVIL) 20 mg tablet Take 20 mg by mouth daily atbedtime.rOPINIRole (REQUIP) 2 mg tablet Take 2 mg by mouth daily at bedtime.metoclopramide HCl (REGLAN) 10 mg tablet Take 10 mg by mouth three timesdaily with meals.baclofen (LIORESAL) 10 mg tablet Take 10 mg by mouth three times daily.omeprazole (PRILOSEC) 20 mg capsule Take 20 mg by mouth once daily.sertraline (ZOLOFT) 50 mg tablet Take 50 mg by mouth once daily.Albuterol Sulfate 1.25 mg/3 mL nebulizer solution Use 1 Ampule vianebulizer every 4 hours as needed.No current facility-administered medications on file prior to visit.ALLERGIES:ALLERGIESAl lergen Reactions- Actos [Pioglitazone* Unknown- Augmentin [Amoxicil* Unknown- Avandia [Rosiglitaz* Unknown- Ciprofloxacin Unknown- Influenza Virus Vac* Other: See Comments- Lyrica [Pregabalin] Unknown- Metformin Unknown- Nsaids (Non-Steroid* UnknownCOMPLETE REVIEW OF SYSTEMS:SKIN: See HPIpatient is unable to contribute to ROSAll other reviewed and negative other than HPI.PHYSICAL EXAM:VItals: BP 109/64 Pulse 60 Temp 36 ?C (96.8 ?F)PHYSICAL EXAMINATION:General appearance: Thin, Cachectic and in no acute distressSkin: Skin color, texture, turgor normal, no suspicious rashes or lesions,LUQ with previously removed J tube site - ?gastric contents uponexpression.ASSESSMENT AND PLAN:47 y/o F with wound on abdomen 2/2 previous J tube site-unclear why there is such a large amount of drainage, cannot completelyr/o fistula and history seems incomplete-will refer to general surgery for further guidance and management at [facility]-possible external gastric fistulaSeen and discussed with staff surgeon, Dr. Nabeel Viramontes, who is inagreement with above plan.Rajwinder Campos APRN.CNPOctober 20175:29 PMThis visit lasted for more than 30 minutes and greater than 50% of thevisit was involved in the discussion of the options for treatment. Normal [facility] BASIC METABOLIC PANELon - Calcium 8.6 mg/dL Normal 8.6-10.3 [facility] Comment on above: Performed By: #### 8 [id number] ####[facility] Chloride 101 mmol/L Normal 98-107 [facility] Comment on above: Performed By: #### 8 [id number] ####[facility] CO2 28 mmol/L Normal 21-31 [facility] Comment on above: Performed By: #### 8 [id number] ####[facility] [facility].[address] Creatinine 0.56 mg/dL Low 0.60-1.20 [facility] Comment on above: Performed By: #### 8 [id number] ####[facility] [facility].[address] eGFR (black) mL/min/{1.73_m2} Normal >60 [facility] Comment on above: Performed By: #### 8 [id number] ####[facility] [facility].[address] eGFR (non-black) mL/min/{1.73_m2} Normal >60 Th e [facility] Comment on above: Performed By: #### 8 [id number] ####[facility] [place] [address], [facility] Glucose mass conc 13 mg/dL Critically low 70-100 [facility] Comment on above: Result Comment: M-CR ITICAL RESULT(S) REVIEWED, CALLED TO AND READ BACK BY WILLARD SHAIKH 1615 Performed By: #### 8 [id number] ####[facility] [place] [address], [facility] Potassium molar conc 3.6 mmol/L Normal 3.5-5.1 [facility] Comment on above: Performed By: #### 8 [id number] ####[facility] [place] [address], [facility] Sodium 135 mmol/L Low 136-145 [facility] Comment on above: Performed By: #### 8 [id number] ####[facility] [place] [address], [facility] Urea nitrogen 12 mg/dL Normal 7-25 [facility] Comment on above: Performed By: #### 8 [id number] ####[facility] [place] [address], [facility] POC GLUCOSE EDon 10-23-2016 Glucose mass conc 340 mg/dL High 70-100 [facility] Comment on above: Performed By: #### 8 [id number] ####[facility] [place] [address], [facility] Glucose mass conc 20 mg/dL Critically low 70-100 [facility] Comment on above: Performed By: #### 8 [id number] ####[facility] [place] [address], [facility] Discharge Summaryon 10-19-19 17 Discharge Summary [id number] Admitted: 10/09/2016 Discharged: 10/12/2016 Date of : 1970 Physician: Tiffanie Silvestre M.D. DISCHARGE SUMMARYPRIMARY DIAGNOSIS: abdominal wall abscessSECONDARY DIAGNOSES:1. Diabetes mellitus.2. Hypertension.3. Gastroesophageal reflux disease.4. Anoxic brain injury.5. Pulmonary embolism.6. 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 She presented to the emergency room with a left upper quadrantabdominal wound. She was a known patient of Dr. Silvestre. Therefore, she wasadmitted for treatment of this wound which was exacerbated by heruncontrolled diabetes. Therefore, both Medicine and Endocrine wereconsulted. They were helpful in optimizing her insulin regimen andcontaining better control of her blood sugars. The patient's wound wasthought to have not healed well after the surgery earlier in September due toimproper changing of the wound VAC. Therefore, she was started on that.This was in part due to nursing at the [facility] that shecame from. Therefore, at this hospitalization she was started [id number] dressings with Dakin b.i.d. Social Work was also consulted forthe wound care nurse to see her on home visits or for sniff placement. Bythe 3rd day of hospitalization with wet-to-dry dressings with half strengthDakin. The wound was cleaned. Endocrine continued to followed throughoutthe case and adjusted her insulin accordingly. Because the wound washealing well and it was felt that outside facility nursing could besthandle the wound with wet-to-dry Dakin's. This was decided on fordischarge.DISCHARGE DISPOSITION: The patient was discharged to [facility] nursing [facility] in good condition.DISCHARGE INSTRUCTIONS: The patient should follow up with the ostomy carenurse weekly. She also can follow up with Dr. Silvestre, in clinic inapproximately 2 weeks with a tentative date of October 23, 2016. She wasinstructed to follow up with her primary care physician or Endocrinologyfor further treatment of her diabetes. Dressings at the skilled nursingfacility should include half strength Dakin with wet-to-dry dressing onabdominal wound and to change twice daily and as needed with wet to dries.She may shower upon discharge.DISCHARGE MEDICATIONS: The patient can continue her home medications.1. Boost Breeze nutritional 1 liquid oral 5 times per day.2. Creon 95368 units oral 3 times per day.3. Ferrous sulfate 300 mg oral daily.4. Novolin R 3 units injected 3 times per day.5. Nuedexta 20 mg/10 mg capsule 1 capsule oral b.i.d.6. Omeprazole 20 mg tablet delayed release oral daily.7. Toujeo SoloStar 25 units subcutaneous daily insulin pen.8. Vitamin B12, 1 mg tablet oral daily.9. Vitamin D3, 5000 unit tablet oral daily.10. Zyrtec 10 mg tablet oral daily.11. Albuterol sulfate 1 solution nebulized every 4 hours as needed.12. Ativan 1 mg tab oral daily as needed.13. Glucagon emergency kit 1 mg injected as needed.14. Glucose gel 40% oral gel oral as directed as needed.15. Mineral 30 mg oral 2 times daily as needed for constipation.16. Percocet 5/325 mg tablet oral every 6 hours as needed for pain.17. Tramadol 50 mg tablet oral every 4 hours as needed.18. Trazodone 50 mg tablet oral every 4 hours as needed.19. Tylenol 325 mg tablet every 6 hours as needed for mild pain.Electronically Signed by:Tiffanie Silvestre M.D. 10/18/2016 10:03 P Tiffanie Silvestre M.D. I personally saw this patient on the day of the encounter, performed thekey portion(s) of the service and participated in the management andconfirm the resident's documentation. Please note there may be anadditional personal documentation from me. Date Dict: 10/17/2016/09:10 P/Veronica Byrd Trans: 10/18/2016 07:57 A/CandidoN_[id number] : Jack Roque D.O. [address] [place] [address] [facility] [address] Normal [facility] CORTISOLon 10-12-2016 CORTISOL 13.0 mcg/dL Normal [facility] Comment on above: Order Comment: No: D o not add to previous draw Result Comment: Refe rence Range:AM 6.0-23.0 mcg/dLPM 0.0-9.0 mcg/dL Performed By: #### 1 0070, 45322, 35839 ####[facility] [place] [address], [facility] POC GLUCOSE LABon 10-12-2016 Glucose mass conc 311 mg/dL High 70-100 [facility] Comment on above: Performed By: #### 1 0070, 86773, 32250 ####[facility] [place] [address], [facility] Glucose mass conc 247 mg/dL High 70-100 [facility] Comment on above: Performed By: #### 1 0070, 48000, 04315 ####[facility] Glucose mass conc 47 mg/dL Critically low 70-100 [facility] Comment on above: Order Comment: No: D o not add to previous draw Performed By: #### 1 0070, 35973, 18219 ####[facility] [facility] [place] [address], [facility] BASIC METABOLIC PANELon 09-25 Calcium 8.0 mg/dL Low 8.6-10.3 [facility] Comment on above: Order Comment: No: D o not add to previous draw Performed By: #### 1 0070, 85252, 81763 ####[facility] [place] [address], [facility] Chloride 99 mmol/L Normal 98-107 [facility] Comment on above: Order Comment: No: D o not add to previous draw Performed By: #### 1 0070, 65560, 99503 ####[facility] [place] [address], [facility] CO2 29 mmol/L Normal 21-31 [facility] Comment on above: Order Comment: No: D o not add to previous draw Performed By: #### 1 0070, 38904, 67728 ####[facility] [place] [address], [facility] Creatinine 0.53 mg/dL Low 0.60-1.20 [facility] Comment on above: Order Comment: No: D o not add to previous draw Performed By: #### 1 0070, 51015, 04276 ####[facility] [place] [address], [facility] eGFR (black) mL/min/{1.73_m2} Normal >60 [facility] Comment on above: Order Comment: No: D o not add to previous draw Performed By: #### 1 0070, 47512, 86524 ####[facility] [place] [address], [facility] eGFR (non-black) mL/min/{1.73_m2} Normal >60 [facility] e [facility] Comment on above: Order Comment: No: D o not add to previous draw Performed By: #### 1 0070, 88795, 33415 ####[facility] [place] [address], [facility] Glucose mass conc 231 mg/dL High 70-100 [facility] Comment on above: Order Comment: No: D o not add to previous draw Performed By: #### 1 0070, 87583, 00031 ####[facility] [place] [address], [facility] Potassium molar conc 5.1 mmol/L Normal 3.5-5.1 [facility] Comment on above: Order Comment: No: D o not add to previous draw Performed By: #### 1 0070, 85464, 63575 ####[facility] [place] [address], [facility] Sodium 132 mmol/L Low 136-145 [facility] Comment on above: Order Comment: No: D o not add to previous draw Performed By: #### 1 0070, 56816, 10697 ####[facility] [facility] [place] [address], [facility] Urea nitrogen 14 mg/dL Normal 7-25 [facility] Comment on above: Order Comment: No: D o not add to previous draw Performed By: #### 1 0070, 81189, 43932 ####[facility] [place] [address], [facility] C PEPTIDE [id number] 10-11-2016 C PEPTIDE 0.4 ng/mL Low 0.8-3.5 [facility] Comment on above: Order Comment: No: D o not add to previous draw Result Comment: INTE RPRETIVE INFORMATION: C-Peptide, Serum or PlasmaReference Interval applies to fasting specimens. To convertto nmol/L, multiply by 0.33Performed by [employer] [facility],[address] [place] [id number] [address], Jas [address] MD - Lab. Director CBC W/DIFFon 10-11-2016 Basophils Auto #/vol (Bld) 0.2 % Normal 0.0-2.0 [facility] Comment on above: Order Comment: No: D o not add to previous draw Performed By: #### 1 0070, 95841, 07339 ####[facility] [facility] [place] [address], [facility] Eosinophils/100 leukocytes 2.1 % Normal 0.0-5.0 [facility] Comment on above: Order Comment: No: D o not add to previous draw Performed By: #### 1 0070, 53995, 76983 ####[facility] [facility] [place] [address], [facility] Erythrocyte distribution width Auto Ratio (RBC) 13.4 % Normal 11.5-16.9 [facility] Comment on above: Order Comment: No: D o not add to previous draw Performed By: #### 1 0, 71689, 96942 ####[facility] Erythrocytes (RBC) 3.60 mill/mm3 Normal 3.50-5.50 [facility] Comment on above: Order Comment: No: D o not add to previous draw Performed By: #### 1 0, 82361, 31443 ####[facility] Hematocrit (HCT) 30.3 % Low 36.0-48.0 [facility] Comment on above: Order Comment: No: D o not add to previous draw Performed By: #### 1 0, , 64227 ####[facility] Hemoglobin mass conc (Bld) 10.0 g/dL Low 12.0-15.0 [facility] Comment on above: Order Comment: No: D o not add to previous draw Performed By: #### 1 0, 84623, 81617 ####[place] [address] [facility].[address] Lymphocytes/100 leukocytes 29.5 % Normal 20.0-40.0 [facility] Comment on above: Order Comment: No: D o not add to previous draw Performed By: #### 1 0, 46369, 07766 ####[facility] MCH 27.9 pg Normal 24.0-32.0 [facility] Comment on above: Order Comment: No: D o not add to previous draw Performed By: #### 1 0, 75415, 67245 ####[facility] [place] [address], [facility] MCHC mass conc (RBC) 33.1 g/dL Normal 32.0-36.0 [facility] Comment on above: Order Comment: No: D o not add to previous draw Performed By: #### 1 0070, 79158, 42817 ####[facility] [place] [address], [facility] MCV 84.2 fL Normal 80.0-100.0 [facility] Comment on above: Order Comment: No: D o not add to previous draw Performed By: #### 1 0070, 34954, 42643 ####[facility] [place] [address], [facility] METHOD Normal [facility] Comment on above: Order Comment: No: D o not add to previous draw Result Comment: Auto mated differential performedNormal RBC Morphology Performed By: #### 1 0070, 75644, 80156 ####[facility] [place] [address], [facility] MONOS 8.0 % Normal 2-8 [facility] Comment on above: Order Comment: No: D o not add to previous draw Performed By: #### 1 0070, 06207, 70618 ####[facility] [place] [address], [facility] Neutrophils/100 leukocytes 60.2 % Normal 50-70 [facility] Comment on above: Order Comment: No: D o not add to previous draw Performed By: #### 1 0070, 51588, 80600 ####[facility] [place] [address], [facility] PLAT CNT 253 Thou/mm3 Normal 100-400 [facility] Comment on above: Order Comment: No: D o not add to previous draw Performed By: #### 1 0070, 06998, 94478 ####[facility] [place] [address], [facility] WBC (Leukocytes) 6.6 Thou/mm3 Normal 4.0-10.0 [facility] Comment on above: Order Comment: No: D o not add to previous draw Performed By: #### 1 0070, 81054, 51699 ####[facility] [place] [address], [facility] GLUTAMIC ACID DECARBOXYLASE AB [id number] 10-11-2016 YO AB <5.0 Normal 0.0-5.0 [facility] Comment on above: Order Comment: Yes: Add to Previous draw if able Result Comment: INTE RPRETIVE INFORMATION: Glutamic Acid Decarboxylase AntibodyA value greater than 5.0 IU/mL is considered positive forGlutamic Acid Decarboxylase Antibody.Performed by [employer] [facility],[address] [place] [address] [address], Jas [address] MD - Lab. Director HEMOGLOBIN A1Con 10-11-2016 Glucose mass conc 246 mg/dL High 70-126 [facility] Comment on above: Order Comment: No: D o not add to previous draw Performed By: #### 1 0070, 59449, 76335 ####[facility] [facility] [place] [address], [facility] Hemoglobin A1c/Hemoglobin.tota l mass fraction (Bld) 10.2 % High 4.0-6.0 [facility] Comment on above: Order Comment: No: D o not add to previous draw Performed By: #### 1 0070, 63979, 13496 ####[facility] [place] [address], [facility] MAGNESIUM BLOODon 10-11-2016 Magnesium 1.8 mg/dL Low 1.9-2.7 [facility] Comment on above: Order Comment: No: D o not add to previous draw Performed By: #### 1 0070, 09095, 71613 ####[facility] [place] [address], [facility] POC GLUCOSE LABon 10-11-2016 Glucose mass conc 94 mg/dL Normal 70-100 [facility] Comment on above: Performed By: #### 1 0070, 80572, 26109 ####[facility] [place] [address], [facility] Glucose mass conc 159 mg/dL High 70-100 [facility] Comment on above: Performed By: #### 1 0070, 75369, 43855 ####[facility] [place] [address], [place] Glucose mass conc 267 mg/dL High 70-100 [facility] Comment on above: Performed By: #### 1 0070, 39927, 32463 ####[facility] [place] [address], [facility] Glucose mass conc 301 mg/dL High 70-100 [facility] Comment on above: Performed By: #### 1 0, 79150, 98421 ####[facility] [place] [address], [facility] BASIC METABOLIC PANELon 08- Calcium 8.3 mg/dL Low 8.6-10.3 [facility] Comment on above: Performed By: #### 1 0070, 73039, 71823 ####[facility] [place] [address], [facility] Chloride 97 mmol/L Low 98-107 [facility] Comment on above: Performed By: #### 1 0070, 71136, 01132 ####[facility] [place] [address], [place] CO2 27 mmol/L Normal 21-31 [facility] Comment on above: Performed By: #### 1 0070, 89432, 42351 ####[facility] [place] [address], [place] Creatinine 0.55 mg/dL Low 0.60-1.20 [facility] Comment on above: Performed By: #### 1 0070, 32572, 20999 ####[facility] [facility].[address] eGFR (black) mL/min/{1.73_m2} Normal >60 [facility] Comment on above: Performed By: #### 1 0, 84873, 98999 ####[facility] eGFR (non-black) mL/min/{1.73_m2} Normal >60 Th e [facility] Comment on above: Performed By: #### 1 0, 38032, 91553 ####[place] [address] [facility].[address] Glucose mass conc 110 mg/dL High 70-100 [facility] Comment on above: Performed By: #### 1 0, 28222, 77633 ####[address] Potassium molar conc 4.8 mmol/L Normal 3.5-5.1 [facility] Comment on above: Performed By: #### 1 0, 79286, 05116 ####[place] [address] [facility].[address] Sodium 133 mmol/L Low 136-145 [facility] Comment on above: Performed By: #### 1 0, 93295, 72581 ####[place] [address] [address] Urea nitrogen 9 mg/dL Normal 7-25 [facility] Comment on above: Performed By: #### 1 0, 24499, 90948 ####[place] [address] [facility].[address] CBC W/DIFFon 10-10-2016 Basophils Auto #/vol (Bld) 0.1 % Normal 0.0-2.0 [facility] Comment on above: Order Comment: No: D o not add to previous draw Performed By: #### 1 0, 56367, 80259 ####[facility] [place] [address], [facility] Eosinophils/100 leukocytes 2.3 % Normal 0.0-5.0 [facility] Comment on above: Order Comment: No: D o not add to previous draw Performed By: #### 1 0, 45079, 08464 ####[facility] [place] [address], [facility] Erythrocyte distribution width Auto Ratio (RBC) 13.5 % Normal 11.5-16.9 [facility] Comment on above: Order Comment: No: D o not add to previous draw Performed By: #### 1 0, 38192, 15578 ####[facility] [facility] [place] [address], [facility] Erythrocytes (RBC) 3.93 mill/mm3 Normal 3.50-5.50 [facility] Comment on above: Order Comment: No: D o not add to previous draw Performed By: #### 1 0, 93978, 31006 ####[facility] [facility] [place] [address], [facility] Hematocrit (HCT) 33.2 % Low 36.0-48.0 [facility] Comment on above: Order Comment: No: D o not add to previous draw Performed By: #### 1 0, 90380, 86557 ####[facility] [place] [address], [facility] Hemoglobin mass conc (Bld) 11.1 g/dL Low 12.0-15.0 [facility] Comment on above: Order Comment: No: D o not add to previous draw Performed By: #### 1 0, 92146, 64684 ####[facility] [place] [address], [facility] Lymphocytes/100 leukocytes 28.7 % Normal 20.0-40.0 [facility] Comment on above: Order Comment: No: D o not add to previous draw Performed By: #### 1 0070, 27997, 68184 ####[facility] [place] [address], [facility] MCH 28.3 pg Normal 24.0-32.0 [facility] Comment on above: Order Comment: No: D o not add to previous draw Performed By: #### 1 0, 90669, 37522 ####[facility] [place] [address], [facility] MCHC mass conc (RBC) 33.5 g/dL Normal 32.0-36.0 [facility] Comment on above: Order Comment: No: D o not add to previous draw Performed By: #### 1 0, 81855, 09063 ####[facility] [facility] [place] [address], [facility] MCV 84.4 fL Normal 80.0-100.0 [facility] Comment on above: Order Comment: No: D o not add to previous draw Performed By: #### 1 0, 69180, 58546 ####[facility] [facility] [place] [address], [facility] METHOD Normal [facility] Comment on above: Order Comment: No: D o not add to previous draw Result Comment: Auto mated differential performedNormal RBC Morphology Performed By: #### 1 0070, 20546, 02269 ####[facility] [place] [address], [facility] MONOS 8.8 % High 2-8 [facility] Comment on above: Order Comment: No: D o not add to previous draw Performed By: #### 1 0070, 16379, 88192 ####[facility] [place] [address], [facility] Neutrophils/100 leukocytes 60.1 % Normal 50-70 [facility] Comment on above: Order Comment: No: D o not add to previous draw Performed By: #### 1 0070, 02172, 67836 ####[facility] [place] [address], [facility] PLAT CNT 314 Thou/mm3 Normal 100-400 [facility] Comment on above: Order Comment: No: D o not add to previous draw Performed By: #### 1 0070, 74263, 32732 ####[facility] WBC (Leukocytes) 7.3 Thou/mm3 Normal 4.0-10.0 [facility] Comment on above: Order Comment: No: D o not add to previous draw Performed By: #### 1 0070, 60831, 62158 ####[facility] [facility].[address] LIVER BATTERYon 10-10-2016 Alanine aminotransferase (ALT) 20 U/L Normal 7-52 [facility] Comment on above: Performed By: #### 1 0070, 39829, 69852 ####[facility] [facility].[address] Albumin 2.7 g/dL Low 3.5-5.7 [facility] Comment on above: Performed By: #### 1 0070, 61159, 66770 ####[facility] [facility].[address] ALKALINE PHOSPH 145 IU/L High 34-104 [facility] Comment on above: Performed By: #### 1 0070, 81727, 27765 ####[facility] [facility].[address] Aspartate aminotransferase (AST) 22 U/L Normal 13-39 [facility] Comment on above: Performed By: #### 1 0070, 44326, 22728 ####[facility] [place] [address], [facility] Bilirubin (direct) 0.1 mg/dL Normal 0.0-0.2 [facility] Comment on above: Performed By: #### 1 0, 35499, 83982 ####[facility] [place] [address], [facility] Bilirubin (total) 0.3 mg/dL Normal 0.3-1.0 [facility] Comment on above: Performed By: #### 1 0, 59499, 07631 ####[facility] [place] [address], [facility] Protein 5.8 g/dL Low 6.0-8.3 [facility] Comment on above: Performed By: #### 1 0, 72854, 20119 ####[facility] [facility] [place] [address], [facility] MAGNESIUM BLOODon 10-10-2016 Magnesium 1.7 mg/dL Low 1.9-2.7 [facility] Comment on above: Order Comment: No: D o not add to previous draw Performed By: #### 1 0, 58627, 62724 ####[facility] [facility] [place] [address], [facility] PHOSPHORUS BLOODon 7 Phosphate 3.2 mg/dL Normal 2.5-5.0 [facility] Comment on above: Order Comment: No: D o not add to previous draw Performed By: #### 1 0, 96495, 26115 ####[facility] [place] [address], [facility] POC GLUCOSE LABon 10-10-2016 Glucose mass conc 132 mg/dL High 70-100 [facility] Comment on above: Performed By: #### 1 0, 07683, 98587 ####[facility] [place] [address], [facility] Glucose mass conc 368 mg/dL High 70-100 [facility] Comment on above: Performed By: #### 1 0070, 77679, 24358 ####[facility] [facility] [place] [address], [place] Glucose mass conc 487 mg/dL High 70-100 [facility] Comment on above: Performed By: #### 1 0070, 28937, 74978 ####[facility] [place] [address], [place] Glucose mass conc 132 mg/dL High 70-100 [facility] Comment on above: Performed By: #### 1 0070, 47916, 42265 ####[facility] [place] [address], [place] Glucose mass conc 89 mg/dL Normal 70-100 [facility] Comment on above: Performed By: #### 1 0070, 00470, 32756 ####[facility] [place] [address], [place] Glucose mass conc 125 mg/dL High 70-100 [facility] Comment on above: Performed By: #### 1 0070, 99273, 29196 ####[facility] [facility] [place] [address], [facility] BASIC METABOLIC PANELon 08-1 Calcium 7.9 mg/dL Low 8.6-10.3 [facility] Comment on above: Performed By: #### 5 0608 ####[facility] [place] [address], [place] Chloride 96 mmol/L Low 98-107 [facility] Comment on above: Performed By: #### 5 0608 ####[facility] [place] [address], [place] CO2 30 mmol/L Normal 21-31 [facility] Comment on above: Performed By: #### 5 0608 ####[facility] [place] [address], [facility] Creatinine 0.60 mg/dL Normal 0.60-1.20 [facility] Comment on above: Performed By: #### 5 0608 ####[facility] [facility] [place] [address], [facility] eGFR (black) mL/min/{1.73_m2} Normal >60 [facility] Comment on above: Performed By: #### 5 0608 ####[place] [address] [place] [address], [facility] eGFR (non-black) mL/min/{1.73_m2} Normal >60 Th e [facility] Comment on above: Performed By: #### 5 0608 ####[address] [place] [address], [facility] Glucose mass conc 89 mg/dL Normal 70-100 [facility] Comment on above: Performed By: #### 5 0608 ####[address] [place] [address], [facility] Potassium molar conc 3.2 mmol/L Low 3.5-5.1 [facility] Comment on above: Performed By: #### 5 0608 ####[place] [address] [facility] Sodium 132 mmol/L Low 136-145 [facility] Comment on above: Performed By: #### 5 0608 ####[address] [address] [place] [address], [facility] Urea nitrogen 11 mg/dL Normal 7-25 [facility] Comment on above: Performed By: #### 5 0608 ####[facility] [place] [address], [facility] CBC W/DIFFon 10-09-2016 Basophils Auto #/vol (Bld) 0.3 % Normal 0.0-2.0 [facility] Comment on above: Performed By: #### 5 0608 ####[facility] [place] [address], [facility] Eosinophils/100 leukocytes 1.4 % Normal 0.0-5.0 [facility] Comment on above: Performed By: #### 5 0608 ####[facility] [facility].[address] Erythrocyte distribution width Auto Ratio (RBC) 13.7 % Normal 11.5-16.9 [facility] Comment on above: Performed By: #### 5 0608 ####[facility] [facility].[address] Erythrocytes (RBC) 3.53 mill/mm3 Normal 3.50-5.50 [facility] Comment on above: Performed By: #### 5 0608 ####[facility] [facility].[address] Hematocrit (HCT) 29.3 % Low 36.0-48.0 [facility] Comment on above: Performed By: #### 5 0608 ####[facility] [facility].[address] Hemoglobin mass conc (Bld) 10.0 g/dL Low 12.0-15.0 [facility] Comment on above: Performed By: #### 5 0608 ####[facility] Lymphocytes/100 leukocytes 29.8 % Normal 20.0-40.0 [facility] Comment on above: Performed By: #### 5 0608 ####[facility] [facility].[address] MCH 28.3 pg Normal 24.0-32.0 [facility] Comment on above: Performed By: #### 5 0608 ####[facility] [facility].[address] MCHC mass conc (RBC) 34.1 g/dL Normal 32.0-36.0 [facility] Comment on above: Performed By: #### 5 0608 ####[facility] [place] [address], [facility] MCV 83.1 fL Normal 80.0-100.0 [facility] Comment on above: Performed By: #### 5 0608 ####[facility] [place] [address], [facility] METHOD Normal [facility] Comment on above: Result Comment: Auto mated differential performedNormal RBC Morphology Performed By: #### 5 0608 ####[place] [address] MONOS 8.2 % High 2-8 [facility] Comment on above: Performed By: #### 5 0608 ####[facility] [facility].[address] Neutrophils/100 leukocytes 60.3 % Normal 50-70 [facility] Comment on above: Performed By: #### 5 0608 ####[facility] [facility].[address] PLAT CNT 297 Thou/mm3 Normal 100-400 [facility] Comment on above: Performed By: #### 5 0608 ####[facility] [facility].[address] WBC (Leukocytes) 5.2 Thou/mm3 Normal 4.0-10.0 [facility] Comment on above: Performed By: #### 5 0608 ####[facility] [facility] ABDOMEN AND PELVIS WO CON TRASTon 10-09-2016 CT ABDOMEN AND PELVIS WO CONTRAST [facility] CenterDepartment [facility] [address] [place] [address] Patient Name: FEMI FRANKS : 1970Sex: FAge: Race: WhiteMRN: [id number]. Location: EMERPatient Status: EVisit #: [id number] Date: 10/09/2016 1:30:00 PMCompleted Date: 10/09/2016 04:35 PMRequesting Provider: MARGA VEGA Attending Provider: MARGA VEGA Report Copy To: Signs & Symptoms: Abdominal Pain(specify)History: Patient history not availableComments: Other, for follow up on wound per Dr. Silvestre, Please use ORAL CONTRASTExam: CT ABDOMEN AND PELVIS WO CONTRASTAccession #: [id number] CT ABDOMEN AND PELVIS WO CONTRAST 10/09/2016 4:35 PM EDT SIGNS AND SYMPTOMS: Abdominal Pain(specify) TECHNOLOGIST COMMENTS: Follow up on wound per Dr. Silvestre. Pt has a wound in abdomen per EDRN. QUESTION FOR THE RADIOLOGIST: Other, for follow up on wound per Dr. Silvestre, Please use ORAL CONTRAST PROTOCOL: Axial CT images of the abdomen and pelvis were obtained without IV contrast. TECHNIQUE: Multidetector CT axial slices of the abdomen and pelvis without IV contrast. Multiplanar reformats were performed and viewed on a separate workstation and reviewed to further define anatomy and possible pathology. COMPARISON: CT abdomen and pelvis August 26, 2016. FINDINGS: The study is degraded by lack of retroperitoneal fat and motion. Images through the lung bases show linear atelectasis in the left lower lobe.The liver, spleen, gallbladder, adrenals and pancreas appear unremarkable.No abnormality is noted in either kidney.Surgical clips suggest surgery in the region of the stomach. Oral contrast has reached the cecum with the small bowel have a normal caliber.The urinary bladder appears unremarkable. A moderate fecal impaction is noted in the rectum.Intraperitoneal air has resorbed since the prior study. An open wound persists in the left upper abdominal quadrant with air extending external to the fascia along the eighth anterolateral rib.The aorta and retroperitoneum appear unremarkable.Study viewed at bone window appears unremarkable with motion artifact appreciated in the mid to lower pelvis. IMPRESSION: * Resolution of pneumoperitoneum since the prior study.* Open wound in the left upper abdominal quadrant with air extending external to the fascia along the eighth anterior lateral rib.* Moderate fecal impaction in rectum. Electronically signed by:Helen Dover. Transcribed by: [email or web address], User Resident: Electronically Signed by: HELEN DOVER @ 10/09/2016 04:56 PM Normal [facility] Comment on above: Order Comment: No: D o not add to previous draw POC GLUCOSE EDon 10-09-2016 Glucose mass conc 82 mg/dL Normal 70-100 [facility] Comment on above: Performed By: #### 1 0070, 77363, 08924 ####[facility] [place] [address], [facility] Glucose mass conc 119 mg/dL High 70-100 [facility] Comment on above: Performed By: #### 5 0608 ####[facility] [place] [address], [facility] Glucose mass conc 47 mg/dL Critically low 70-100 [facility] Comment on above: Order Comment: No: D o not add to previous draw Performed By: #### 1 0070, 81260, 45553 ####[facility] [place] [address], [place] Glucose mass conc 69 mg/dL Low 70-100 [facility] Comment on above: Performed By: #### 5 0608 ####[facility] [place] [address], [place] Glucose mass conc 101 mg/dL High 70-100 [facility] Comment on above: Performed By: #### 5 0608 ####[facility] [place] [address], [facility] Glucose mass conc 40 mg/dL Critically low 70-100 [facility] Comment on above: Order Comment: No: D o not add to previous draw Performed By: #### 1 0070, 50881, 42319 ####[facility] [place] [address], [facility] Glucose mass conc 100 mg/dL Normal 70-100 [facility] Comment on above: Performed By: #### 5 0608 ####[facility] [place] [address], [facility] Glucose mass conc 322 mg/dL High 70-100 [facility] Comment on above: Performed By: #### 5 0608 ####[facility] [place] [address], [facility] POC GLUCOSE LABon 10-09-2016 Glucose mass conc 54 mg/dL Low 70-100 [facility] Comment on above: Performed By: #### 1 0070, 64374, 11154 ####[facility] [place] [address], [place] CBC COMPLETE BLOOD COUNTon 0 10-03-2016 Erythrocyte distribution width Auto Ratio (RBC) 13.8 % Normal 11.5-16.9 [facility] Comment on above: Performed By: #### 5 0608 ####[facility] [place] [address], [facility] Erythrocytes (RBC) 3.78 mill/mm3 Normal 3.50-5.50 [facility] Comment on above: Performed By: #### 5 0608 ####[facility] [place] [address], [place] Hematocrit (HCT) 31.8 % Low 36.0-48.0 [facility] Comment on above: Performed By: #### 5 0608 ####[facility] Hemoglobin mass conc (Bld) 10.6 g/dL Low 12.0-15.0 [facility] Comment on above: Performed By: #### 5 0608 ####[address] MCH 28.2 pg Normal 24.0-32.0 [facility] Comment on above: Performed By: #### 5 0608 ####[place] [address] MCHC mass conc (RBC) 33.5 g/dL Normal 32.0-36.0 [facility] Comment on above: Performed By: #### 5 0608 ####[address] MCV 84.0 fL Normal 80.0-100.0 [facility] Comment on above: Performed By: #### 5 0608 ####[address] PLAT CNT 211 Thou/mm3 Normal 100-400 [facility] Comment on above: Performed By: #### 5 0608 ####[place] [address] WBC (Leukocytes) 7.8 Thou/mm3 Normal 4.0-10.0 [facility] Comment on above: Performed By: #### 5 0608 ####[place] [address] COMP METABOLIC PANELon 10-03 Alanine aminotransferase (ALT) 21 U/L Normal 7-52 [facility] Comment on above: Performed By: #### 5 0608 ####[facility] [place] [address], [facility] Albumin 2.7 g/dL Low 3.5-5.7 [facility] Comment on above: Performed By: #### 5 0608 ####[facility] [place] [address], [place] ALKALINE PHOSPH 181 IU/L High 34-104 [facility] Comment on above: Performed By: #### 5 0608 ####[facility] [place] [address], [facility] Aspartate aminotransferase (AST) 12 U/L Low 13-39 [facility] Comment on above: Performed By: #### 5 0608 ####[facility] [place] [address], [place] Bilirubin (total) 0.4 mg/dL Normal 0.3-1.0 [facility] Comment on above: Performed By: #### 5 0608 ####[facility] [place] [address], [place] Calcium 8.2 mg/dL Low 8.6-10.3 [facility] Comment on above: Performed By: #### 5 0608 ####[facility] [place] [address], [place] Chloride 96 mmol/L Low 98-107 [facility] Comment on above: Performed By: #### 5 0608 ####[facility] [place] [address], [place] CO2 27 mmol/L Normal 21-31 [facility] Comment on above: Performed By: #### 5 0608 ####[facility] [place] [address], [place] Creatinine 0.63 mg/dL Normal 0.60-1.20 [facility] Comment on above: Performed By: #### 5 0608 ####[facility] eGFR (black) mL/min/{1.73_m2} Normal >60 [facility] Comment on above: Performed By: #### 5 0608 ####[facility] [place] [address], [facility] eGFR (non-black) mL/min/{1.73_m2} Normal >60 Th e [facility] Comment on above: Performed By: #### 5 0608 ####[facility] [facility].[address] Glucose mass conc 126 mg/dL High 70-100 [facility] Comment on above: Performed By: #### 5 0608 ####[facility] [facility].[address] Potassium molar conc 4.1 mmol/L Normal 3.5-5.1 [facility] Comment on above: Performed By: #### 5 0608 ####[facility] [facility].[address] Protein 5.6 g/dL Low 6.0-8.3 [facility] Comment on above: Performed By: #### 5 0608 ####[facility] [facility].[address] Sodium 128 mmol/L Low 136-145 [facility] Comment on above: Performed By: #### 5 0608 ####[facility] [facility].[address] Urea nitrogen 20 mg/dL Normal 7-25 [facility] Comment on above: Performed By: #### 5 0608 ####[facility] [facility].[address] *ANAEROBIC CULTUREon 017 *ANAEROBIC CULTURE Clinical Report: (D) Specimen/Source: TISSUE/INTRAOP SPEC Collected: 10/01/2016 12:07 Status: Final Last Updated: 10/06/2016 10:12 (1) #2 Bone ISO (Final) No Anaerobes Isolated 5 Days Normal [facility] Comment on above: Order Comment: #2 Isidoro ne Performed By: #### 8 5499 ####[facility] *TISSUE CULTUREon 10-01-2016 *TISSUE CULTURE Clinical Report: (D) Specimen/Source: TISSUE/INTRAOP SPEC Collected: 10/01/2016 12:07 Status: Final Last Updated: 10/12/2016 13:53 (1) #2 Bone GRAM (Final) Few Polys Many Gram Positive Bacilli Many Gram Negative Bacilli Many Gram Positive Cocci In Clusters ISO (Final) Enterococcus species Identification performed by the [facility] Molecular Department. ISO (Final) Streptococcus anginosus Heavy Growth Results called. Read back by Lesley Kingsley RN (OPSurg) 2:27 p.m. 10/03/16 ISO (Final) Streptococcus massiliensis Identification performed by the [facility] Molecular Department. Result changed by ELVIRA on 10/12/2016 13:53. The previous result was: ISO (Prelim) Gram Positive Cocci Isolated Normal [facility] Comment on above: Order Comment: #2 Isidoro ne Performed By: #### 8 5499 ####[address] [place] [address], [facility] BACTERIAL ID: 16S rRNA GENE SEQUENCINGon 10-01-2016 16S BACTERIAL ID Enterococcus species Normal [facility] Comment on above: Order Comment: No: D o not add to previous draw Performed By: #### 1 0070, 12549, 10145 ####[facility] [place] [address], [facility] 16S BACTERIAL ID Streptococcus massiliensis Normal [facility] Comment on above: Order Comment: No: D o not add to previous draw Performed By: #### 1 0070, 06060, 76396 ####[facility] [place] [address], [facility] 16S INTERPRETATION see comment Normal [facility] Comment on above: Order Comment: No: D o not add to previous draw Performed By: #### 1 0070, 32692, 13025 ####[facility] [facility].[address] SIGNED BY: Normal [facility] Comment on above: Order Comment: No: D o not add to previous draw Result Comment: Elec tronically signed by: Ángel Watson M.D., Ph.D Java Performance Engineer, Department of PathologyINTERPRETATION: Bacterial Sequencing of the 16S rRNA gene from anisolated colony from the patient?s intraoperative tissue culturedemonstrated that the organism is genotypically most closely related toEnterococcus species. This genotypic result is consistent with themicroscopy colony characteristics, and biochemical tests. [facility] accession [id number] for culture results.METHODOLOGY: DNA was extracted from a pure colony of theculture-isolated organism. Polymerase chain reaction (PCR) andsequencing was performed using primers targeting the 16SrRNA gene. Thesequence was then compared to a database of sequences for knownorganisms to identify a match.REFERENCE: 1) Interpretive Criteria for Identification of Bacteria andFungi by DNA Target Sequencing; Approved Guideline. CLSI [id number]. MOISÉS Chavez: Clinical and Laboratory Standards [place]; 2008.This molecular test was developed and its performance validated by the[facility]. It has not been approved by theU.S. Food and Drug Administration. This laboratory is certified underthe Clinical Laboratory Improvement Amendments of 1988 (CLIA ?88) asqualified to perform this type of high complexity clinical laboratorytesting. Performed By: #### 1 0070, 16196, 50065 ####[facility] [facility].[address] Result Comment: Elec tronically signed by: Ángel Watson M.D., Ph.D Java Performance Engineer, Department of PathologyINTERPRETATION: Bacterial Sequencing of the 16S rRNA gene from anisolated colony from the patient?s intraoperative tissue culturedemonstrated that the organism is genotypically most closely related toStreptococcus massiliensis. This genotypic result is consistent withthe microscopy colony characteristics, and biochemical tests. [facility] [id number] for culture results.METHODOLOGY: DNA was extracted from a pure colony of theculture-isolated organism. Polymerase chain reaction (PCR) andsequencing was performed using primers targeting the 16SrRNA gene. Thesequence was then compared to a database of sequences for knownorganisms to identify a match.REFERENCE: 1) Interpretive Criteria for Identification of Bacteria andFungi by DNA Target Sequencing; Approved Guideline. CLSI [id number]. MOISÉS Chavez: Clinical and Laboratory Standards [place]; 2008.This molecular test was developed and its performance validated by the[facility]. It has not been approved by theU.S. Food and Drug Administration. This laboratory is certified underthe Clinical Laboratory Improvement Amendments of 1988 (CLIA ?88) asqualified to perform this type of high complexity clinical laboratorytesting. Operative Reporton 7 Operative Report MR#: [id number] [facility] Pt. Name: Femi Franks Room #: 0C Discharge Date: Birthdate: 1970 OPERATIVE REPORTDATE OF SURGERY: 10/01/2016SURGEON: Tiffanie Silvestre M.D.SURGEON: Tiffanie Silvestre M.D.OPTICAL DESIGN ENGINEER: Paul Schwartz M.D.PREOPERATIVE DIAGNOSIS: Left upper quadrant abdominal wall chronicabscess.POSTOPERATIV E DIAGNOSIS: Left upper quadrant chronic abscess with necroticribs, possible osteomyelitis.OPERATION PERFORMED: Excision of left upper quadrant abdominal wallchronic abscess with bone biopsy of ribs.ANESTHESIA: General endotracheal anesthesia.INDICATION: The patient is a 46-year-old white female with left upperquadrant chronic abscess from previous gastrocutaneous fistula and theexcision of chronic abscess of abdominal wall with the wound VAC wasoffered to the patient. Informed consent was obtained.DESCRIPTION OF PROCEDURE: The patient was brought to the operating room,laid on the operating table in supine position. General anesthesia wasinitiated. Her abdomen was prepped and draped in usual sterile fashion.The abscess opening is 2 cm x 1.5 cm. Cavity is 3 cm x 2 cm x 2 cm. Anelliptical skin incision was made around the chronic abscess. Around the 9cm long and 6 cm wide skin and subcu tissue dissection with electrocauterydown to the fascia. The elliptical skin and subcu tissue was removed intocavity, which apparently is inside the external and the internal obliquefascia and also have lower ribs involved, at least I believe that involvingthe left 10th and 11th ribs with bone fragment. The curettage wasperformed to remove the granular tissue and bone biopsy was obtained by thebone rongeur. Multiple bone fragments were removed, sent for the tissueculture. Then, the wound was irrigated with copious normal saline. Thenthe skin and subcu tissue wound was closed by 3-0 nylon interrupted suture.Two piece of white sponge was inserted into the cavity, then Prevena woundVAC was applied. I was present during the entire operation.Electronically Signed by:Tiffanie Silvestre M.D. 10/14/2016 11:10 A Tiffanie Silvestre M.D.Date Dict: 10/01/2016/12:44 P/Tiffanie Silvestre M.D.Date Trans: 10/01/2016 09:27 P/[id number] : Jack Roque D.O. [address] [facility] [address] Normal [facility] POC GLUCOSE LABon 10-01-2016 Glucose mass conc 120 mg/dL High 70-100 [facility] Comment on above: Performed By: #### 8 [id number] ####[facility] [place] [address], [facility] Glucose mass conc 100 mg/dL Normal 70-100 [facility] Comment on above: Performed By: #### 8 [id number] ####[facility] [place] [address], [facility] Glucose mass conc 86 mg/dL Normal 70-100 [facility] Comment on above: Performed By: #### 8 [id number] ####[facility] [facility], [place] [address] Consultationon 09-20-2016 Consultation MR#: [id number] Pt. Name: Femi Franks Date of Service: 08/26/2016 Room #: SIC [id number] Birthdate: 1970 Referring Physician: CONSULTATIONSURGICAL CRITICAL CARE CONSULTATIONREASON FOR CONSULTATION: Symptomatic bradycardia, hypertension, alteredmental status.HISTORY OF PRESENT ILLNESS: Ms. Franks is a 46-year-old female, who isstatus post enterocutaneous fistula takedown. She is postoperative day 1.Her postoperative course was unremarkable until she was noted to havesymptomatic bradycardia. The patient's heart rate went down to the 40s andsystolic blood pressure dropped to the 50s and 60s and the patient hadaltered mental status at baseline. The patient is somewhat agitated. She isable to answer yes or no to questions. However, she is otherwise nonverbalon the floor. The patient was given atropine with slight improvement inheart rate and blood pressure. However, her mental status continued to bealtered and she remained hypertensive. The patient was noted to have hadmultiple home medications including Seroquel, Remeron, and Requip at thattime. The patient was subsequently given 1 L fluid bolus. She was thentaken down to the CT scanner, where she underwent a CT of the head as wellas a CT of the abdomen and pelvis. She was subsequently transferred to thesurgical ICU for further care.PAST MEDICAL HISTORY: Hypertension, diabetes mellitus type 2, GERD,history of TBI, failure to thrive, history of PE, EDUAR.PAST SURGICAL HISTORY: Tracheostomy, PEG, and G-tube placement.ALLERGIES: Multiple including Actos, NSAIDs, tetanus vaccine, toxoids,Fluvirin, Augmentin, Avandia, ciprofloxacin, Lyrica, metformin, andibuprofen.HOME MEDICATIONS: Albuterol sulfate, baclofen, Creon, ferrous sulfate,glucagon, loperamide, Novolin R, Nuedexta, omeprazole, ropinirole,Seroquel, sertraline, Toujeo SoloStar, tramadol, Tylenol, vitamin B12,vitamin D3, Zyrtec.SOCIAL HISTORY: Cannot be obtained at this time as the patient is alteredand is at baseline, mostly nonverbal.FAMILY HISTORY: Cannot be obtained for the similar reason.REVIEW OF SYSTEMS: Could not be obtained for the same above reason.PHYSICAL EXAMINATION: VITAL SIGNS: The patient's blood pressure is 80/60,heart rate is 62, respirations 20, temperature 98.3 degrees Fahrenheit.GENERAL: The patient's mental status has not changed from prior. She isless agitated and more somnolent. However, she awakens to painful stimuli.HEENT: Normocephalic and atraumatic.NECK: Supple. Trachea midline.HEART: Regular rate and rhythm. Normal S1, S2.LUNGS: Clear to auscultation bilaterally.ABDOMEN: Soft, nontender, nondistended.EXTREMITIES: No edema. No calf tenderness.SKIN: Warm and dry.LABORATORY VALUES: The patient is noted to have a sodium of 131, potassium3.5, chloride 100, carbon dioxide 27, BUN 13, creatinine 0.64, glucose 120,magnesium 3.0. Troponin 0.2, phosphorus 3.5. White blood count 5.3,hemoglobin 8.6, hematocrit 25.8, platelets 185.IMAGING: The patient underwent CT of the head. This was negative for anyacute intracranial pathology. CT of the abdomen and pelvis was alsoobtained to rule out leakage with postoperative changes showing moderatepneumoperitoneum. There is no free fluid.ASSESSMENT AND PLAN: This is a 46-year-old female, status postenterocutaneous fistula takedown on postoperative day 1. She developedsymptomatic bradycardia, altered mental status, hypertension afterreceiving multiple home medications.PLAN: As follows.1. Neuro will discontinue culprit medications including Remeron, Requip and Seroquel at this time. We will continue to do neuro checks.2. Cardiovascular. At this time, the patient's blood pressure has markedly improved and her systolic blood pressure is currently above 100.3. From the pulmonary standpoint, the patient is maintaining oxygen saturation above 95% on room air.4. GI. The patient is to be kept n.p.o. The patient underwent CT of the abdomen and pelvis that showed pneumoperitoneum likely postoperative change.5. Renal. The patient will be maintained on lactated Ringer's at 75 mL/h.6. Endocrine. The patient will be continued on her home dose of insulin glargine as well as a sliding scale for tight blood sugar control.7. DVT prophylaxis. The patient will be kept on Lovenox 40 mg subcutaneous daily. We will continue to monitor the patient for the time being.Electronically Signed by:Emma Lord MD 09/25/2016 03:33 P _Emma Lord MD I personally saw this patient on the day of the encounter, performed thekey portion(s) of the service and participated in the management andconfirm the resident's documentation. Please note there may be anadditional personal documentation from me. Date Dict: 08/29/2016/10:52 A/Veronica Ch Trans: 09/20/2016 02:33 A/Marcy_[id number]: Jack Roque D.O. [address] [facility]. [facility] [address] [place] [facility] Discharge Summaryon 09-20-19 17 Discharge Summary [id number] Admitted: 08/24/2016 Discharged: 08/29/2016 Date of : 1970 Physician: Tiffanie Silvestre M.D. DISCHARGE SUMMARYPRINCIPAL DIAGNOSIS: Enterocutaneous fistula.SECONDARY DIAGNOSES:1. Diabetes mellitus.2. Hypertension.3. Gastroesophageal reflux disease.4. Anoxic brain injury.5. Pulmonary embolism.6. Acute kidney injury.7. Gastric bypass.8. Symptomatic bradycardia.HOSPITAL COURSE: A 46-year-old female with history of anoxic brain injury,had a previous gastric bypass and previous placement of feeding jejunostomytube. She regained enough function in order to feed orally and the feedingtube was removed. However, she developed chronic renal cutaneous fistula.The patient admitted to the hospital in order to remove the fistulasurgically. The patient was taken to the operation room on 08/24/2016where she underwent laparoscopic takedown of renal cutaneous fistula. Theprocedure was done without any complication and the patient tolerated thesurgery well. On the first day postoperation, the patient developedbradycardia, the heart rate was at 40 and the patient was hypotensive asthe systolic blood pressure was from 50-70, altered of her mental status.This occurred at home, antipsychotic medication was taken, which areropinirole, Remeron, Seroquel. At this time, the patient was givenatropine and intravenous fluid, which increased the heart rate to 70 andsystolic blood pressure to 80s. ECG, lab, head CT was ordered and thepatient was transferred to surgical intensive care unit. Psychiatry alsoconsulted to adjust her medication and home medication discontinued.Eventually, her heart rate and blood pressure back to normal range withoutany medication.THE PATIENT'S CONDITION AT DISCHARGE AND DISPOSITION: The patient wasdischarged back to [facility] Facility in stable and good condition.DISCHARGE INSTRUCTIONS:1. The patient discharged with full liquid diet until seen by Dr. Silvestre.2. Wet-to-dry dressings 3 times a day for abdominal wound.3. Get Psychiatry consult for her medication when needed.4. The patient can shower, but without bathtub or soaking the wound.5. Follow up with Dr. Silvestre within 1-2 weeks.DISCHARGE MEDICATIONS:1. nutritional oral 3 times a day.2. units oral daily.3. Ferrous sulfate 325 mg oral daily.4. Humulin R 2 units subcutaneously 3 times daily.5. 10-20 mg 2 times a day.6. Omeprazole 20 mg tablet 1 tab daily.7. units subcutaneously daily.8. Vitamin B12 of 1000 mcg 1 tablet daily.9. Vitamin D3 of 5000 unit tablet daily.10. Zyrtec 10 mg daily.11. Albuterol sulfate 1.25 mg/3 mL solution for nebulization every 3 hours as needed for shortness of breath.12. Glucagon emergency kit, injection as needed.13. as needed.14. Loperamide 2 mg tablet, 1 tablet oral every 4 hours as needed.15. Tramadol 50 mg tablet every 4 hours as needed for pain.16. Tylenol 325 mg tablets, 2 tablets every 6 hours as needed for pain.Electronically Signed by:Tiffanie Silvestre M.D. 10/14/2016 11:49 A Tiffanie Silvestre M.D. I personally saw this patient on the day of the encounter, performed thekey portion(s) of the service and participated in the management andconfirm the resident's documentation. Please note there may be anadditional personal documentation from me. Date Dict: 09/06/2016/02:03 P/Veronica Petit Trans: 09/19/2016 04:32 A/mmoDN_[id number]: Jack Roque D.O. [facility] [facility]. [facility] [address] [place] [facility] Discharge Summaryon 09-14-19 Discharge Summary MR#: [id number] [facility] Femi rFanks Admitted: 08/24/2016 Discharged: 08/29/2016 Date of : 1970 Physician: Tiffanie Silvestre M.D. DISCHARGE SUMMARYSERVICEGeneral Surgery.PRIMARY DIAGNOSISEnterocutaneous fistula repair.SECONDARY DIAGNOSES1.Traumatic brain injury.2.Hypertension.3.Valeria betes type 2.4.Gastroesophageal reflux disease.5.Gastric bypass.6.Anemia.7.Failure to thrive.PROCEDURES THIS ADMISSIONAn enterocutaneous fistula takedown.CONSULTS THIS ADMISSIONSICU.HOSPITAL COURSEThis is a 46-year-old female with a history of hypoxic brain injury, whohad previous failure to thrive and need for a J-tube. The patient no longeris in need of her J-tube and had it previously removed, and the J-tube sitehas not been able to close. The patient arrives for elective EC fistulatakedown. On 08/24/2016, she underwent the procedure well without anycomplication and was kept postoperatively for observation in recovery. Shewas initially on step-down unit. However, on postop day 1, the patientexperienced an episode of unstable bradycardia with heart rate in the 40sand blood pressure in the 60s and 70s systolic. Surgery team was at thebedside and gave the patient 1 L bolus of IV fluids and 1 dose of atropine.The patient recovered and then was transferred to the ICU for furtherobservation. CT of the head and EKG and other labs drawn at that time werewithin normal limits. During the rest of her hospital stay, the patient waswithout other hypotensive episodes, although did have some residualbradycardia. We had adjusted her psychiatric medications and consultedPsychiatry due to the concern that some of these were causing herbradycardia. She was started on a clear liquid diet on postoperative day 5and then full liquids the day after and was discharged back to her facilityin good condition with instructions to complete reconciliation of herpsychiatric medications with her facility psychiatrist.DISCHARGE DISPOSITIONFacility.DISCHAR GE CONDITIONGood.DISCHARGE INSTRUCTIONSMay shower. May continue medications and full liquid diet as tolerated.Denied advance diet until seen by physician. Discontinue indicatedpsychiatric medications until seen by a physician specializing inPsychiatry. Follow with Dr. Silvestre in 7-10 days. Please call for anappointment.Electronicall y Signed by:Tiffanie Silvestre M.D. 10/14/2016 11:48 A Tiffanie Silvestre M.D. I personally saw this patient on the day of the encounter, performed thekey portion(s) of the service and participated in the management andconfirm the resident's documentation. Please note there may be anadditional personal documentation from me. Date Dict: 09/03/2016//Veronica Jacobson Trans: 09/13/2016 04:05 P/Enma_[id number]: Jack Roque D.O. [address] [facility] [address] Normal [facility] Operative Reporton 7 Operative Report MR[id number] Femi Franks Room #: SIC [id number] Discharge 08/29/2016 Date: Birthdate: 1970 OPERATIVE REPORTDATE OF SURGERY: 08/24/2016SURGEON: Tiffanie Silvestre M.D.ASSISTANTS: Leticia Pierce M.D.ANESTHESIA:General endotracheal anesthesia plus Marcaine as a local anesthetic.PREOPERATIVE DIAGNOSIS:Enterocutaneous fistula.OPERATION: 1. Laparoscopic take down of jejunal cutaneous fistula. 2. Bone biopsy.POSTOPERATIVE DIAGNOSIS:Enterocutaneous fistula .SPECIMENS: 1. Bone biopsy. Multiple pieces to pathology for culture and sensitivity. 2. Fistula specimen to pathology for permanent fluid balance per anesthesia record.ESTIMATED BLOOD LOSS:25 mL or less.INDICATIONS:The patient is a 46 -year-old female who sustained anoxic brain injury, hada previous gastric bypass and a previous placement of feeding jejunostomytube. She regained enough function in order to be fed orally and thefeeding tube was removed; however, she developed a chronic jejunalcutaneous fistula. Operative resection of said fistula was discussed withher next of kin who provided written consent.PROCEDURE:The patient was taken back to the operating room #13 where she was placedsupine with EPC cuffs in place bilaterally. General anesthetic was inducedand she was prepped and draped sterilely. She received antibiotics andprior to incision a safety time out was performed during which all partiesagreed to proceed.The abdomen was entered with guidance using a VisaPort andpneumoperitineum was induced. We placed an additional 12 mm trocar in theright paramedian position and a 5 mm trocar in the left paramedianposition. We identified the jejunal cutaneous fistula which was surroundedby dense adhesions. Adhesions were taken down using a combination of Bovieelectrocautery and sharp dissection with endoshears identifying a singleloop of jejunum rising up to the anterior abdominal wall. Having freedthis up as much as possible, we placed a 60 mm purple load endo BRIDGET stapleracross the fistula resecting, taking it down with two staple loads. We thenprotected the staple line using 3-0 silks in a Lembert fashion. From ourintra-abdominal position sharply debrided as much of the fistula tract onthe anterior abdominal wall. We obtained excellent hemostasis with Bovieelectrocautery and the pneumoperitineum was reversed. We closed the largetrocar incisions with an 0 Vicryl in a htnsbt-sa-lzwqt fashion and then theskin was closed with 4-0 Vicryl in a subcuticular fashion. Our attentionnext turned to freshening up the tract. All of the enteric mucosa wasresected with a combination of sharp dissection, Bovie electrocautery andlastly using curettes. Unfortunately we identified an area where the leftsubcostal rib margin had been invaded by the fistula tract, from here thebone appeared to be healthy; however, we took a bone biopsy of some of thesofter portions and sent this to pathology for culture and sensitivity. Celestine closed the fascia below the tract and packed the wound with francy-to-dry style bandage.The patient tolerated the procedure well.Please note that Dr. Tiffanie Silvestre was present and scrubbed for the entiretyof the procedure.Electronically Signed by:Tiffanie Silvestre M.D. 09/02/2016 09:16 P Tiffanie Sivlestre M.D. I was present for the entire procedure. Date Dict: 08/29/2016//James Pierce M.D.Date Trans: 09/01/2016 06:13 Su/Rosanna_[id number]/cc: Jack Roque D.O. [address] [place], [place] [id number] Normal [facility] BASIC METABOLIC PANELon 07-0 Calcium 8.4 mg/dL Low 8.6-10.3 [facility] Comment on above: Order Comment: #2 Isidoro ne biopsy. Performed By: #### 3 0338 ####[facility] [place] [address], [facility] Chloride 107 mmol/L Normal 98-107 [facility] Comment on above: Order Comment: #2 Isidoro ne biopsy. Performed By: #### 3 0338 ####[facility] [place] [address], [facility] CO2 26 mmol/L Normal 21-31 [facility] Comment on above: Order Comment: #2 Isidoro ne biopsy. Performed By: #### 3 0338 ####[facility] [place] [address], [facility] Creatinine 0.63 mg/dL Normal 0.60-1.20 [facility] Comment on above: Order Comment: #2 Isidoro ne biopsy. Performed By: #### 3 0338 ####[facility] eGFR (black) mL/min/{1.73_m2} Normal >60 [facility] Comment on above: Order Comment: #2 Isidoro ne biopsy. Performed By: #### 3 0338 ####[facility] eGFR (non-black) mL/min/{1.73_m2} Normal >60 Th e [facility] Comment on above: Order Comment: #2 Isidoro ne biopsy. Performed By: #### 3 0338 ####[facility] [place] [address], [facility] Glucose mass conc 53 mg/dL Low 70-100 [facility] Comment on above: Order Comment: #2 Isidoro ne biopsy. Performed By: #### 3 0338 ####[facility] [facility] Potassium molar conc 3.8 mmol/L Normal 3.5-5.1 [facility] Comment on above: Order Comment: #2 Isidoro ne biopsy. Performed By: #### 3 0338 ####[facility] Sodium 138 mmol/L Normal 136-145 [facility] Comment on above: Order Comment: #2 Isidoro ne biopsy. Performed By: #### 3 0338 ####[facility] [place] [address], [facility] Urea nitrogen 4 mg/dL Low 7-25 [facility] Comment on above: Order Comment: #2 Isidoro ne biopsy. Performed By: #### 3 0338 ####[facility] CBC COMPLETE BLOOD COUNTon 0 08-29-2016 Erythrocyte distribution width Auto Ratio (RBC) 13.0 % Normal 11.5-16.9 [facility] Comment on above: Order Comment: #2 Isidoro ne biopsy. Performed By: #### 3 0338 ####[address] Erythrocytes (RBC) 3.82 mill/mm3 Normal 3.50-5.50 [facility] Comment on above: Order Comment: #2 Isidoro ne biopsy. Performed By: #### 3 0338 ####[address] Hematocrit (HCT) 32.2 % Low 36.0-48.0 [facility] Comment on above: Order Comment: #2 Isidoro ne biopsy. Performed By: #### 3 0338 ####[place] [id number] [address] Hemoglobin mass conc (Bld) 10.8 g/dL Low 12.0-15.0 [facility] Comment on above: Order Comment: #2 Isidoro ne biopsy. Performed By: #### 3 0338 ####[place] [id number] [address] MCH 28.2 pg Normal 24.0-32.0 [facility] Comment on above: Order Comment: #2 Isidoro ne biopsy. Performed By: #### 3 0338 ####[facility] MCHC mass conc (RBC) 33.5 g/dL Normal 32.0-36.0 [facility] Comment on above: Order Comment: #2 Isidoro ne biopsy. Performed By: #### 3 0338 ####[address] MCV 84.2 fL Normal 80.0-100.0 [facility] Comment on above: Order Comment: #2 Isidoro ne biopsy. Performed By: #### 3 0338 ####[facility] [place] [address], [facility] PLAT CNT 232 Thou/mm3 Normal 100-400 [facility] Comment on above: Order Comment: #2 Isidoro ne biopsy. Performed By: #### 3 0338 ####[facility] [place] [address], [facility] WBC (Leukocytes) 3.8 Thou/mm3 Low 4.0-10.0 [facility] Comment on above: Order Comment: #2 Isidoro ne biopsy. Performed By: #### 3 0338 ####[facility] [place] [address], [facility] MAGNESIUM BLOODon 08-29-2016 Magnesium 1.9 mg/dL Normal 1.9-2.7 [facility] Comment on above: Order Comment: #2 Isidoro ne biopsy. Performed By: #### 3 0338 ####[facility] [place] [address], [facility] POC GLUCOSE LABon 08-29-2016 Glucose mass conc 232 mg/dL High 70-100 [facility] Comment on above: Performed By: #### 8 5499 ####[facility] [place] [address], [facility] Glucose mass conc 223 mg/dL High 70-100 [facility] Comment on above: Performed By: #### 8 5499 ####[facility] [place] [address], [facility] Glucose mass conc 232 mg/dL High 70-100 [facility] Comment on above: Performed By: #### 3 0338 ####[facility] [place] [address], [facility] Glucose mass conc 90 mg/dL Normal 70-100 [facility] Comment on above: Performed By: #### 3 0338 ####[facility] BASIC METABOLIC PANELon 07-0 Calcium 8.4 mg/dL Low 8.6-10.3 [facility] Comment on above: Order Comment: #2 Isidoro ne biopsy. Performed By: #### 3 0338 ####[facility] [place] [address], [facility] Chloride 102 mmol/L Normal 98-107 [facility] Comment on above: Order Comment: #2 Isidoro ne biopsy. Performed By: #### 3 0338 ####[facility] [place] [address], [facility] CO2 24 mmol/L Normal 21-31 [facility] Comment on above: Order Comment: #2 Isidoro ne biopsy. Performed By: #### 3 0338 ####[facility] Creatinine 0.62 mg/dL Normal 0.60-1.20 [facility] Comment on above: Order Comment: #2 Isidoro ne biopsy. Performed By: #### 3 0338 ####[facility] eGFR (black) mL/min/{1.73_m2} Normal >60 [facility] Comment on above: Order Comment: #2 Isidoro ne biopsy. Performed By: #### 3 0338 ####[facility] [place] [address], [facility] eGFR (non-black) mL/min/{1.73_m2} Normal >60 Th e [facility] Comment on above: Order Comment: #2 Isidoro ne biopsy. Performed By: #### 3 0338 ####[facility] [place] [address], [facility] Glucose mass conc 145 mg/dL High 70-100 [facility] Comment on above: Order Comment: #2 Isidoro ne biopsy. Performed By: #### 3 0338 ####[facility] Potassium molar conc 3.3 mmol/L Low 3.5-5.1 [facility] Comment on above: Order Comment: #2 Isidoro ne biopsy. Performed By: #### 3 0338 ####[facility] Sodium 135 mmol/L Low 136-145 [facility] Comment on above: Order Comment: #2 Isidoro ne biopsy. Performed By: #### 3 0338 ####[facility] Urea nitrogen 5 mg/dL Low 7-25 [facility] Comment on above: Order Comment: #2 Isidoro ne biopsy. Performed By: #### 3 0338 ####[facility] [facility].[address] CBC COMPLETE BLOOD COUNTon 0 - Erythrocyte distribution width Auto Ratio (RBC) 13.0 % Normal 11.5-16.9 [facility] Comment on above: Order Comment: No: D o not add to previous draw Performed By: #### 8 [id number] ####[facility] [facility].[address] Erythrocytes (RBC) 3.77 mill/mm3 Normal 3.50-5.50 [facility] Comment on above: Order Comment: No: D o not add to previous draw Performed By: #### 8 [id number] ####[facility] [facility].[address] Hematocrit (HCT) 32.0 % Low 36.0-48.0 [facility] Comment on above: Order Comment: No: D o not add to previous draw Performed By: #### 8 [id number] ####[facility] [place] [address], [facility] Hemoglobin mass conc (Bld) 10.8 g/dL Low 12.0-15.0 [facility] Comment on above: Order Comment: No: D o not add to previous draw Performed By: #### 8 [id number] ####[facility] [place] [address], [facility] MCH 28.5 pg Normal 24.0-32.0 [facility] Comment on above: Order Comment: No: D o not add to previous draw Performed By: #### 8 [id number] ####[facility] [place] [address], [facility] MCHC mass conc (RBC) 33.5 g/dL Normal 32.0-36.0 [facility] Comment on above: Order Comment: No: D o not add to previous draw Performed By: #### 8 [id number] ####[facility] [place] [address], [facility] MCV 85.1 fL Normal 80.0-100.0 [facility] Comment on above: Order Comment: No: D o not add to previous draw Performed By: #### 8 [id number] ####[facility] [place] [address], [facility] PLAT CNT 223 Thou/mm3 Normal 100-400 [facility] Comment on above: Order Comment: No: D o not add to previous draw Performed By: #### 8 [id number] ####[facility] [place] [address], [facility] WBC (Leukocytes) 4.4 Thou/mm3 Normal 4.0-10.0 [facility] Comment on above: Order Comment: No: D o not add to previous draw Performed By: #### 8 [id number] ####[facility] [place] [address], [facility] MAGNESIUM BLOODon 08-28-2016 Magnesium 1.8 mg/dL Low 1.9-2.7 [facility] Comment on above: Order Comment: No: D o not add to previous draw Performed By: #### 8 [id number] ####[facility] [place] [address], [facility] PHOSPHORUS BLOODon 7 Phosphate 3.5 mg/dL Normal 2.5-5.0 [facility] Comment on above: Order Comment: #2 Isidoro ne biopsy. Performed By: #### 3 0338 ####[facility] [place] [address], [facility] POC GLUCOSE LABon 08-28-2016 Glucose mass conc 406 mg/dL High 70-100 [facility] Comment on above: Performed By: #### 3 0338 ####[facility] [place] [address], [facility] Glucose mass conc 232 mg/dL High 70-100 [facility] Comment on above: Performed By: #### 3 0338 ####[facility] [place] [address], [facility] Glucose mass conc 182 mg/dL High 70-100 [facility] Comment on above: Performed By: #### 3 0338 ####[facility] [place] [address], [facility] Glucose mass conc 134 mg/dL High 70-100 [facility] Comment on above: Performed By: #### 8 [id number] ####[facility] [place] [address], [facility] BASIC METABOLIC PANELon Calcium 8.7 mg/dL Normal 8.6-10.3 [facility] Comment on above: Order Comment: No: D o not add to previous draw Performed By: #### 8 [id number] ####[facility] [place] [address], [facility] Chloride 106 mmol/L Normal 98-107 [facility] Comment on above: Order Comment: No: D o not add to previous draw Performed By: #### 8 [id number] ####[facility] [place] [address], [facility] CO2 27 mmol/L Normal 21-31 [facility] Comment on above: Order Comment: No: D o not add to previous draw Performed By: #### 8 [id number] ####[facility] [place] [address], [facility] Creatinine 0.64 mg/dL Normal 0.60-1.20 [facility] Comment on above: Order Comment: No: D o not add to previous draw Performed By: #### 8 [id number] ####[facility] [place] [address], [facility] eGFR (black) mL/min/{1.73_m2} Normal >60 [facility] Comment on above: Order Comment: No: D o not add to previous draw Performed By: #### 8 [id number] ####[facility] [place] [address], [facility] eGFR (non-black) mL/min/{1.73_m2} Normal >60 Th e [facility] Comment on above: Order Comment: No: D o not add to previous draw Performed By: #### 8 [id number] ####[facility] [place] [address], [facility] Glucose mass conc 51 mg/dL Low 70-100 [facility] Comment on above: Order Comment: No: D o not add to previous draw Performed By: #### 8 5499 ####[facility] [place] [address], [facility] Potassium molar conc 3.9 mmol/L Normal 3.5-5.1 [facility] Comment on above: Order Comment: No: D o not add to previous draw Performed By: #### 8 [id number] ####[facility] Sodium 140 mmol/L Normal 136-145 [facility] Comment on above: Order Comment: No: D o not add to previous draw Performed By: #### 8 [id number] ####[facility] [place] [address], [facility] Urea nitrogen 9 mg/dL Normal 7-25 [facility] Comment on above: Order Comment: No: D o not add to previous draw Performed By: #### 8 [id number] ####[facility] [facility].[address] CBC COMPLETE BLOOD COUNTon 0 08-27-2016 Erythrocyte distribution width Auto Ratio (RBC) 12.9 % Normal 11.5-16.9 [facility] Comment on above: Order Comment: No: D o not add to previous draw Performed By: #### 8 [id number] ####[facility] [facility].[address] Erythrocytes (RBC) 3.67 mill/mm3 Normal 3.50-5.50 [facility] Comment on above: Order Comment: No: D o not add to previous draw Performed By: #### 8 [id number] ####[facility] [facility].[address] Hematocrit (HCT) 31.4 % Low 36.0-48.0 [facility] Comment on above: Order Comment: No: D o not add to previous draw Performed By: #### 8 [id number] ####[facility] [facility] [place] [address], [facility] Hemoglobin mass conc (Bld) 10.4 g/dL Low 12.0-15.0 [facility] Comment on above: Order Comment: No: D o not add to previous draw Performed By: #### 8 [id number] ####[facility] MCH 28.5 pg Normal 24.0-32.0 [facility] Comment on above: Order Comment: No: D o not add to previous draw Performed By: #### 8 [id number] ####[facility] [facility] MCHC mass conc (RBC) 33.3 g/dL Normal 32.0-36.0 [facility] Comment on above: Order Comment: No: D o not add to previous draw Performed By: #### 8 [id number] ####[facility] [facility].[address] MCV 85.7 fL Normal 80.0-100.0 [facility] Comment on above: Order Comment: No: D o not add to previous draw Performed By: #### 8 [id number] ####[facility] [facility].[address] PLAT CNT 217 Thou/mm3 Normal 100-400 [facility] Comment on above: Order Comment: No: D o not add to previous draw Performed By: #### 8 [id number] ####[facility] [facility].[address] WBC (Leukocytes) 5.1 Thou/mm3 Normal 4.0-10.0 [facility] Comment on above: Order Comment: No: D o not add to previous draw Performed By: #### 8 [id number] ####[facility] [place] [address], [facility] MAGNESIUM BLOODon 08-27-2016 Magnesium 1.9 mg/dL Normal 1.9-2.7 [facility] Comment on above: Order Comment: No: D o not add to previous draw Performed By: #### 8 [id number] ####[facility] [place] [address], [facility] PHOSPHORUS BLOODon 07-03-201 7 Phosphate 4.4 mg/dL Normal 2.5-5.0 [facility] Comment on above: Order Comment: No: D o not add to previous draw Performed By: #### 8 [id number] ####[facility] [place] [address], [place] POC GLUCOSE LABon 08-27-2016 Glucose mass conc 93 mg/dL Normal 70-100 [facility] Comment on above: Performed By: #### 8 5499 ####[facility] [place] [address], [place] Glucose mass conc 126 mg/dL High 70-100 [facility] Comment on above: Performed By: #### 8 [id number] ####[facility] [place] [address], [place] Glucose mass conc 107 mg/dL High 70-100 [facility] Comment on above: Performed By: #### 8 [id number] ####[facility] [facility] [place] [address], [place] Glucose mass conc 98 mg/dL Normal 70-100 [facility] Comment on above: Performed By: #### 8 [id number] ####[facility] [place] [address], [place] Glucose mass conc 81 mg/dL Normal 70-100 [facility] Comment on above: Performed By: #### 8 [id number] ####[facility] [place] [address], [place] Glucose mass conc 43 mg/dL Critically low 70-100 [facility] Comment on above: Order Comment: NOTE: Critical Value -- Result verified in duplicate Performed By: #### 8 [id number] ####[facility] [place] [address], [place] BASIC METABOLIC PANELon Calcium 8.4 mg/dL Low 8.6-10.3 [facility] Comment on above: Order Comment: No: D o not add to previous draw Performed By: #### 8 [id number] ####[facility] [place] [address], [facility] Chloride 102 mmol/L Normal 98-107 [facility] Comment on above: Order Comment: No: D o not add to previous draw Performed By: #### 8 [id number] ####[facility] [place] [address], [facility] CO2 26 mmol/L Normal 21-31 [facility] Comment on above: Order Comment: No: D o not add to previous draw Performed By: #### 8 5499 ####[facility] [place] [address], [facility] Creatinine 0.61 mg/dL Normal 0.60-1.20 [facility] Comment on above: Order Comment: No: D o not add to previous draw Performed By: #### 8 5499 ####[facility] [place] [address], [facility] eGFR (black) mL/min/{1.73_m2} Normal >60 [facility] Comment on above: Order Comment: No: D o not add to previous draw Performed By: #### 8 [id number] ####[facility] [place] [address], [facility] eGFR (non-black) mL/min/{1.73_m2} Normal >60 Th e [facility] Comment on above: Order Comment: No: D o not add to previous draw Performed By: #### 8 [id number] ####[facility] [id number], [facility] Glucose mass conc 101 mg/dL High 70-100 [facility] Comment on above: Order Comment: No: D o not add to previous draw Performed By: #### 8 5499 ####[facility] [place] [address], [facility] Potassium molar conc 4.8 mmol/L Normal 3.5-5.1 [facility] Comment on above: Order Comment: No: D o not add to previous draw Performed By: #### 8 [id number] ####[facility] [place] [address], [facility] Sodium 133 mmol/L Low 136-145 [facility] Comment on above: Order Comment: No: D o not add to previous draw Performed By: #### 8 5499 ####[facility] [place] [address], [facility] Urea nitrogen 13 mg/dL Normal 7-25 [facility] Comment on above: Order Comment: No: D o not add to previous draw Performed By: #### 8 5499 ####[facility] [place] [address], [facility] Calcium 8.1 mg/dL Low 8.6-10.3 [facility] Comment on above: Order Comment: No: D o not add to previous draw Performed By: #### 8 5499 ####[facility] [place] [address], [facility] Chloride 100 mmol/L Normal 98-107 [facility] Comment on above: Order Comment: No: D o not add to previous draw Performed By: #### 8 5499 ####[facility] [place] [address], [facility] CO2 27 mmol/L Normal 21-31 [facility] Comment on above: Order Comment: No: D o not add to previous draw Performed By: #### 8 5499 ####[facility] [place] [address], [facility] Creatinine 0.64 mg/dL Normal 0.60-1.20 [facility] Comment on above: Order Comment: No: D o not add to previous draw Performed By: #### 8 5499 ####[facility] [place] [address], [facility] eGFR (black) mL/min/{1.73_m2} Normal >60 [facility] Comment on above: Order Comment: No: D o not add to previous draw Performed By: #### 8 5499 ####[facility] [place] [address], [facility] eGFR (non-black) mL/min/{1.73_m2} Normal >60 Th e [facility] Comment on above: Order Comment: No: D o not add to previous draw Performed By: #### 8 5499 ####[facility] [place] [address], [facility] Glucose mass conc 120 mg/dL High 70-100 [facility] Comment on above: Order Comment: No: D o not add to previous draw Performed By: #### 8 5499 ####[facility] [place] [address], [facility] Potassium molar conc 3.5 mmol/L Normal 3.5-5.1 [facility] Comment on above: Order Comment: No: D o not add to previous draw Performed By: #### 8 5499 ####[facility] [place] [address], [facility] Sodium 131 mmol/L Low 136-145 [facility] Comment on above: Order Comment: No: D o not add to previous draw Performed By: #### 8 5499 ####[facility] [place] [address], [facility] Urea nitrogen 13 mg/dL Normal 7-25 [facility] Comment on above: Order Comment: No: D o not add to previous draw Performed By: #### 8 5499 ####[facility] [place] [address], [place] CBC COMPLETE BLOOD COUNTon 0 08-26-2016 Erythrocyte distribution width Auto Ratio (RBC) 12.9 % Normal 11.5-16.9 [facility] Comment on above: Order Comment: No: D o not add to previous draw Performed By: #### 8 [id number] ####[facility] Erythrocytes (RBC) 3.65 mill/mm3 Normal 3.50-5.50 [facility] Comment on above: Order Comment: No: D o not add to previous draw Performed By: #### 8 5499 ####[facility] [facility].[address] Hematocrit (HCT) 31.2 % Low 36.0-48.0 [facility] Comment on above: Order Comment: No: D o not add to previous draw Performed By: #### 8 5499 ####[facility] Hemoglobin mass conc (Bld) 10.4 g/dL Low 12.0-15.0 [facility] Comment on above: Order Comment: No: D o not add to previous draw Performed By: #### 8 [id number] ####[facility] [facility].[address] MCH 28.6 pg Normal 24.0-32.0 [facility] Comment on above: Order Comment: No: D o not add to previous draw Performed By: #### 8 [id number] ####[facility] [place] [address], [facility] MCHC mass conc (RBC) 33.4 g/dL Normal 32.0-36.0 [facility] Comment on above: Order Comment: No: D o not add to previous draw Performed By: #### 8 [id number] ####[facility] [place] [address], [facility] MCV 85.6 fL Normal 80.0-100.0 [facility] Comment on above: Order Comment: No: D o not add to previous draw Performed By: #### 8 5499 ####[facility] [place] [address], [facility] PLAT CNT 217 Thou/mm3 Normal 100-400 [facility] Comment on above: Order Comment: No: D o not add to previous draw Performed By: #### 8 5499 ####[facility] [place] [address], [facility] WBC (Leukocytes) 6.1 Thou/mm3 Normal 4.0-10.0 [facility] Comment on above: Order Comment: No: D o not add to previous draw Performed By: #### 8 [id number] ####[facility] [place] [address], [facility] Erythrocyte distribution width Auto Ratio (RBC) 13.2 % Normal 11.5-16.9 [facility] Comment on above: Order Comment: No: D o not add to previous draw Performed By: #### 8 [id number] ####[facility] [facility] [place] [address], [facility] Erythrocytes (RBC) 3.03 mill/mm3 Low 3.50-5.50 [facility] Comment on above: Order Comment: No: D o not add to previous draw Performed By: #### 8 [id number] ####[facility] [facility] [place] [address], [facility] Hematocrit (HCT) 25.8 % Low 36.0-48.0 [facility] Comment on above: Order Comment: No: D o not add to previous draw Performed By: #### 8 [id number] ####[facility] [place] [address], [facility] Hemoglobin mass conc (Bld) 8.6 g/dL Low 12.0-15.0 [facility] Comment on above: Order Comment: No: D o not add to previous draw Performed By: #### 8 [id number] ####[facility] [facility].[address] MCH 28.3 pg Normal 24.0-32.0 [facility] Comment on above: Order Comment: No: D o not add to previous draw Performed By: #### 8 [id number] ####[facility] [facility] [place] [address], [facility] MCHC mass conc (RBC) 33.2 g/dL Normal 32.0-36.0 [facility] Comment on above: Order Comment: No: D o not add to previous draw Performed By: #### 8 [id number] ####[place] [id number] [place] [address], [facility] MCV 85.1 fL Normal 80.0-100.0 [facility] Comment on above: Order Comment: No: D o not add to previous draw Performed By: #### 8 5499 ####[address] PLAT CNT 185 Thou/mm3 Normal 100-400 [facility] Comment on above: Order Comment: No: D o not add to previous draw Performed By: #### 8 5499 ####[place] [id number] [place] [address], [facility] WBC (Leukocytes) 5.3 Thou/mm3 Normal 4.0-10.0 [facility] Comment on above: Order Comment: No: D o not add to previous draw Performed By: #### 8 [id number] ####[address], [place] [id number] [place] [address] CT ABDOMEN AND PELVIS W CONT [facility] 08-26-2016 CT ABDOMEN AND PELVIS W CONTRAST [facility] [address] [place] [id number] Patient Name: FEMI FRANKS : 1970Sex: FAge: Race: WhiteMRN: [id number]. Location: [id number] Status: IVisit #: [id number] Date: 08/25/2016 11:40:00 PMCompleted Date: 08/26/2016 12:35 AMRequesting Provider: JAMES PIERCE Attending Provider: TIFFANIE SILVESTRE Report Copy To: Signs & Symptoms: Abdominal Pain(specify)History: Patient history not availableComments: Other, POD#2 takedown of jejunal cutaneous fistula. look for leakExam: CT ABDOMEN AND PELVIS W CONTRASTAccession #: [id number] CT ABDOMEN AND PELVIS W CONTRAST 08/26/2016 12:35 AM EDT SIGNS AND SYMPTOMS: Abdominal Pain(specify) TECHNOLOGIST COMMENTS: pt had brain injury and is unable to give any history or symptoms, pt unable to raise arms for CT, dx. POD#2 takedown of jejunal cutaneous fistula. look for leak. PROTOCOL: Axial CT images of the abdomen/pelvis were obtained with IV contrast. CONTRAST: Contrast: OMNIPAQUE 350 (LOCM), 100 milliliter, Intravenous TECHNIQUE: Multidetector ct axial images of the abdomen and pelvis were obtained with IV contrast. Multiplanar reformats were performed and viewed on a separate workstation and reviewed to further define anatomy and possible pathology. Appropriate CT dose lowering techniques were utilized. COMPARISON: None. FINDINGS: Lower Chest: Small left pleural effusion with bibasilar atelectatic changes, more on the left side. Possibility of left lower lobe aspiration or pneumonia is suspected ABDOMEN:Liver: Within normal limits.Bile Ducts: Minimal intrahepatic biliary dilatation.Gallbladder: No calcified gallstones. Normal caliber wall.Pancreas: Within normal limits.Spleen: Within normal limits.Adrenals: Mild thickening of the left adrenal gland noted.Kidneys: Within normal limits. Pelvis:Reproductive Organs: No pelvic masses.Ureters: Within normal limits.Bladder: Within normal limits. Bowel: Dilated sigmoid colon with moderate stool burden.Surgical sutures seen at the stomach.Mesenteric Lymph Nodes: No pathologic enlarged mesenteric lymph nodes.Peritoneum: There is moderate to marked free air noted around the liver and in the anterior lower abdomen and pelvis. No sizable ascites or fluid collection.Vessels: Atherosclerotic changes .Retroperitoneum: Within normal limits.Abdominal Wall: Postoperative changes and subcutaneous emphysema noted at the left upper quadrant anterior abdominal wall.There is fat edema about the ischiorectal fossa.Bones: Lower thoracic and lumbar spine degenerative changes noted no acute osseous abnormality. IMPRESSION:* Status post operative changes showing moderate to marked pneumoperitoneum and left upper quadrant anterior abdominal wall post operative changes as above.* No sizable free fluid collection noted or evidence of abscess.* Sigmoid with moderate stool burden. Findings communicated with the surgery resident Dr. Villavicencio at 1:00 a.m. Approved by:Ross Ugarte on 08/26/2016 1:19 AM EDT. I, Lourdes Pinedo, have reviewed the images and report and concur with these findings. Electronically signed by:Lourdes Pinedo. Transcribed by: [email or web address], User Resident: ROSS UGARTEElectronically Signed by: LOURDES PINEDO @ 08/26/2016 07:15 AMI personally read this/these film(s) with this resident Normal [facility] Comment on above: Order Comment: Other , POD#2 takedown of jejunal cutaneous fistula. look for leak CT BRAIN WO CONTRASTon 08-26 CT BRAIN WO CONTRAST [facility] [address] [place] [address] Patient Name: FEMI FRANKS : 1970Sex: FAge: Race: WhiteMRN: [id number]. Location: [id number] Status: IVisit #: [id number] Date: 08/25/2016 11:20:00 PMCompleted Date: 08/26/2016 12:34 AMRequesting Provider: JUSTIN VILLAVICENCIO Attending Provider: TIFFANIE SILVESTRE Report Copy To: Signs & Symptoms: HeadacheHistory: Patient history not availableComments: R/O CVAExam: CT BRAIN WO CONTRASTAccession #: [id number] CT BRAIN WO CONTRAST 08/26/2016 12:34 AM EDT SIGNS AND SYMPTOMS: Headache TECHNOLOGIST COMMENTS: pt had prior brain injury/episode and is unable to give any history or symptoms, rule out CVA. QUESTION FOR THE RADIOLOGIST: R/O CVA PROTOCOL: Axial CT images of the head were obtained without IV contrast. TECHNIQUE:Multi-detector CT axial slices of the brain were obtained without IV contrast. Helical,sagittal, coronal, and 3-D reconstructions were performed and viewed on a separate workstation. Appropriate CT dose lowering techniques were utilized. COMPARISON: CT brain January 05, 2016. FINDINGS: There is no shift of the midline structures, acute intracranial bleeding, mass effects, or evidence of acute ischemia. The ventricular system and extra-axial CSF spaces are again mildly dilated. Bilateral basal ganglia calcifications again noted The brainstem and the cerebellum are unremarkable. The visualized intraorbital contents, and the infratemporal soft tissues show no acute abnormality. The osseous structures in the skull base and the calvarium show no acute abnormality. Minimal nonaggressive mucosal thickening of the frontal sinuses and ethmoid air cells. IMPRESSION: * No acute intracranial pathology. * Mild cortical atrophy, somewhat exaggerated considering the patient's age but appear unchanged since prior study. Approved by:Ross Ugarte on 08/26/2016 12:51 AM EDT. I, Lourdes Pinedo, have reviewed the images and report and concur with these findings. Electronically signed by:Lourdes Pinedo. Transcribed by: [email or web address], User Resident: ROSS UGARTEElectronically Signed by: LOURDES PINEDO @ 08/26/2016 07:08 AMI personally read this/these film(s) with this resident Normal [facility] Comment on above: Order Comment: R/O C VA MAGNESIUM BLOODon 08-26-2016 Magnesium 2.7 mg/dL Normal 1.9-2.7 [facility] Comment on above: Order Comment: No: D o not add to previous draw Performed By: #### 8 [id number] ####[facility] [place] [address], [facility] Magnesium 3.0 mg/dL High 1.9-2.7 [facility] Comment on above: Order Comment: No: D o not add to previous draw Performed By: #### 8 [id number] ####[facility] [place] [address], [facility] PHOSPHORUS BLOODon 7 Phosphate 3.5 mg/dL Normal 2.5-5.0 [facility] Comment on above: Order Comment: No: D o not add to previous draw Performed By: #### 8 [id number] ####[facility] [place] [address], [place] POC GLUCOSE LABon 08-26-2016 Glucose mass conc 87 mg/dL Normal 70-100 [facility] Comment on above: Performed By: #### 8 5499 ####[facility] [place] [address], [place] Glucose mass conc 27 mg/dL Critically low 70-100 [facility] Comment on above: Order Comment: NOTE: Critical Value -- Result verified in duplicate Performed By: #### 8 5499 ####[facility] [place] [address], [place] Glucose mass conc 67 mg/dL Low 70-100 [facility] Comment on above: Performed By: #### 8 5499 ####[facility] [place] [address], [facility] Glucose mass conc 126 mg/dL High 70-100 [facility] Comment on above: Performed By: #### 8 5499 ####[facility] [place] [address], [facility] TROPONIN-Ion 08-26-2016 Troponin I.cardiac mass conc 0.00 ng/mL Normal 0.00-0.04 [facility] Comment on above: Result Comment: REFE RENCE RANGES: 0.00 - 0.14 ng/ml NEGATIVE 0.15 - 0.25 ng/ml INDETERMINATE > 0.25 ng/ml INDICATIVE OF AN M.I. Performed By: #### 8 5499 ####[facility] [facility] [place] [address], [facility] BASIC METABOLIC PANELon 07-0 Calcium 8.1 mg/dL Low 8.6-10.3 [facility] Comment on above: Order Comment: No: D o not add to previous draw Performed By: #### 1 0070, 99698, 90673 ####[facility] [facility] [place] [address], [facility] Chloride 102 mmol/L Normal 98-107 [facility] Comment on above: Order Comment: No: D o not add to previous draw Performed By: #### 1 0070, 22169, 63525 ####[facility] [place] [address], [facility] CO2 26 mmol/L Normal 21-31 [facility] Comment on above: Order Comment: No: D o not add to previous draw Performed By: #### 1 0070, 24800, 59140 ####[facility] [place] [address], [facility] Creatinine 0.67 mg/dL Normal 0.60-1.20 [facility] Comment on above: Order Comment: No: D o not add to previous draw Performed By: #### 1 0070, 17460, 35823 ####[facility] [place] [address], [facility] eGFR (black) mL/min/{1.73_m2} Normal >60 [facility] Comment on above: Order Comment: No: D o not add to previous draw Performed By: #### 1 0070, 43660, 18524 ####[facility] [place] [address], [facility] eGFR (non-black) mL/min/{1.73_m2} Normal >60 Th e [facility] Comment on above: Order Comment: No: D o not add to previous draw Performed By: #### 1 0070, 67542, 61920 ####[facility] [place] [address], [facility] Glucose mass conc 305 mg/dL High 70-100 [facility] Comment on above: Order Comment: No: D o not add to previous draw Performed By: #### 1 0070, 25069, 56763 ####[facility] [place] [address], [facility] Potassium molar conc 4.2 mmol/L Normal 3.5-5.1 [facility] Comment on above: Order Comment: No: D o not add to previous draw Performed By: #### 1 0070, 07059, 71093 ####[facility] [place] [address], [facility] Sodium 134 mmol/L Low 136-145 [facility] Comment on above: Order Comment: No: D o not add to previous draw Performed By: #### 1 0070, 96595, 33280 ####[facility] [place] [address], [facility] Urea nitrogen 18 mg/dL Normal 7-25 [facility] Comment on above: Order Comment: No: D o not add to previous draw Performed By: #### 1 0070, 51586, 76973 ####[facility] CBC COMPLETE BLOOD COUNTon 0 08-25-2016 Erythrocyte distribution width Auto Ratio (RBC) 12.7 % Normal 11.5-16.9 [facility] Comment on above: Order Comment: No: D o not add to previous draw Performed By: #### 5 0608 ####[facility] Erythrocytes (RBC) 3.23 mill/mm3 Low 3.50-5.50 [facility] Comment on above: Order Comment: No: D o not add to previous draw Performed By: #### 5 0608 ####[place] [address] [address] Hematocrit (HCT) 27.4 % Low 36.0-48.0 [facility] Comment on above: Order Comment: No: D o not add to previous draw Performed By: #### 5 0608 ####[place] [address] [address] Hemoglobin mass conc (Bld) 9.2 g/dL Low 12.0-15.0 [facility] Comment on above: Order Comment: No: D o not add to previous draw Performed By: #### 5 0608 ####[facility] MCH 28.4 pg Normal 24.0-32.0 [facility] Comment on above: Order Comment: No: D o not add to previous draw Performed By: #### 5 0608 ####[address] MCHC mass conc (RBC) 33.5 g/dL Normal 32.0-36.0 [facility] Comment on above: Order Comment: No: D o not add to previous draw Performed By: #### 5 0608 ####[facility] [facility] MCV 84.8 fL Normal 80.0-100.0 [facility] Comment on above: Order Comment: No: D o not add to previous draw Performed By: #### 5 0608 ####[facility] [facility] [place] [address], [facility] PLAT CNT 226 Thou/mm3 Normal 100-400 [facility] Comment on above: Order Comment: No: D o not add to previous draw Performed By: #### 5 0608 ####[facility] [facility].[address] WBC (Leukocytes) 6.5 Thou/mm3 Normal 4.0-10.0 [facility] Comment on above: Order Comment: No: D o not add to previous draw Performed By: #### 5 0608 ####[facility] [facility].[address] MAGNESIUM BLOODon 08-25-2016 Magnesium 1.4 mg/dL Low 1.9-2.7 [facility] Comment on above: Order Comment: No: D o not add to previous draw Performed By: #### 1 0070, 92646, 72245 ####[facility] [facility].[address] PHOSPHORUS BLOODon 7 Phosphate 3.4 mg/dL Normal 2.5-5.0 [facility] Comment on above: Order Comment: No: D o not add to previous draw Performed By: #### 1 0070, 42636, 72585 ####[facility] [facility].[address] POC GLUCOSE LABon 08-25-2016 Glucose mass conc 88 mg/dL Normal 70-100 [facility] Comment on above: Performed By: #### 8 5499 ####[facility] [place], [place] [address] [place] [address] Glucose mass conc 215 mg/dL High 70-100 [facility] Comment on above: Performed By: #### 8 5499 ####[facility] [place] [address], [facility] Glucose mass conc 353 mg/dL High 70-100 [facility] Comment on above: Performed By: #### 8 5499 ####[facility] [place], [place] [address] [place] [address] *ANAEROBIC CULTUREon 017 *ANAEROBIC CULTURE Clinical Report: (D) Specimen/Source: TISSUE/INTRAOP SPEC Collected: 08/24/2016 15:16 Status: Final Last Updated: 09/04/2016 07:57 (1) #2 Bone biopsy. ISO (Final) Prevotella nigrescens Beta-Lactamase Positive Identification performed by the [facility] Molecular Department. ISO (Final) Bacteroides ovatus group Beta-Lactamase Positive ISO (Final) Prevotella buccae (Bacteroides) Beta-Lactamase Positive Result changed by [facility] on 09/04/2016 07:57. The previous result was: ISO (Prelim) ^Anaerobic Gram Negative Bacilli Isolated ^Isolate Sent to the [facility] Molecular Department for Identification Result changed by [facility] on 08/30/2016 10:03. The previous result was: ISO (Prelim) Normal [facility] Comment on above: Order Comment: #2 Isidoro ne biopsy. Performed By: #### 8 5499 ####[facility] [place], [place] [id number] [place] [address] *TISSUE CULTUREon 08-24-2016 *TISSUE CULTURE Clinical Report: (D) Specimen/Source: TISSUE/INTRAOP SPEC Collected: 08/24/2016 15:16 Status: Final Last Updated: 08/29/2016 12:36 (1) #2 Bone biopsy. GRAM (Final) Rare Polys Few Gram Positive Cocci In Pairs Rare Gram Negative Bacilli ISO (Final) Light Growth Presumptive Enterococcus avium group Results called. Read back by Jenny Jules RN at 0946 on 08/26/2016 ISO (Final) Light Growth Streptococcus mitis/oralis group ISO (Final) Eikenella corrodens Light Growth ISO (Final) Streptococcus constellatus Moderate Growth Result changed by SHELLI on 08/29/2016 12:36. The previous result was: ISO (Prelim) Normal [facility] Comment on above: Order Comment: #2 Isidoro ne biopsy. Performed By: #### 3 0338 ####[facility] BACTERIAL ID: 16S rRNA GENE SEQUENCINGon 08-24-2016 16S BACTERIAL ID Prevotella nigrescens Normal [facility] Comment on above: Order Comment: Verona te #1 Performed By: #### 8 5499 ####[facility] 16S INTERPRETATION Normal [facility] Comment on above: Order Comment: Verona te #1 Result Comment: INTE RPRETATION: Bacterial Sequencing of the 16S rRNA gene from anisolated colony from the patient's bone biopsy culture, demonstratedthat the organism is genotypically most closely related to Prevotellanigrescens. This genotypic result is consistent with the microscopycolony characteristics, and biochemical tests. See microbiologyaccession [id number] for culture results.METHODOLOGY: DNA was extracted from a pure colony of theculture-isolated organism. Polymerase chain reaction (PCR) andsequencing was performed using primers targeting the 16SrRNA gene. Thesequence was then compared to a database of sequences for knownorganisms to identify a match.REFERENCE: 1) Interpretive Criteria for Identification of Bacteria andFungi by DNA Target Sequencing; Approved Guideline. CLSI [id number]. MOISÉS Chavez: Clinical and Laboratory Standards [place]; 2008.This molecular test was developed and its performance validated by the[facility]. It has not been approved by theU.S. Food and Drug Administration. This laboratory is certified underthe Clinical Laboratory Improvement Amendments of 1988 (CLIA '88) asqualified to perform this type of high complexity clinical laboratorytesting. Performed By: #### 8 5499 ####[facility] [place] [address], [facility] SIGNED BY: Normal [facility] Comment on above: Order Comment: Verona te #1 Result Comment: Elec tronically signed by: Ángel Watson M.D., Ph.DChief Resident, Department of Pathology Performed By: #### 8 5499 ####[facility] [place] [address], [facility] POC GLUCOSE LABon 08-24-2016 Glucose mass conc 242 mg/dL High 70-100 [facility] Comment on above: Performed By: #### 8 5499 ####[facility] [place] [address], [facility] Glucose mass conc 235 mg/dL High 70-100 [facility] Comment on above: Performed By: #### 8 5499 ####[facility] [place] [address], [facility] Glucose mass conc 249 mg/dL High 70-100 [facility] Comment on above: Performed By: #### 8 5499 ####[facility] [place] [address], [place] Glucose mass conc 211 mg/dL High 70-100 [facility] Comment on above: Performed By: #### 8 5499 ####[facility] [place] [address], [facility] Encounters Encounter Date Encounter Type Care Provider Facility Start: 06-04-2022 End: 06-04-[address] JACK ROQUE Facility:[facility] Start: 04-27-2022 End: 04-27-[address] JACK ROQUE Facility:[facility] Start: 02-10-2018 End: 02-11-2018 Patient encounter procedure GANGA BARRIOS [facility] Start: 01-10-2018 End: 02-10-2018 Patient encounter procedure CRISTINA BROOKS [facility] Start: 12-05-2017 End: 12-06-2017 Patient encounter procedure NABEEL VIRAMONTES [facility] Start: 10-23-2016 End: 10-23-2016 Emergency department patient visit REFERRED SELF Facility:[facility] Start: 10-09-2016 End: 10-12-2016 Evaluation and management of inpatient REFERRED SELF Facility:[facility] Start: 10-03-2016 End: 10-04-2016 Ambulatory TIFFANIE SILVESTRE Facility:[facility] Start: 10-01-2016 End: 10-02-2016 Ambulatory TIFFANIE SILVESTRE Facility:[facility] Start: 08-25-2016 End: 08-30-2016 Evaluation and management of inpatient TIFFANIE SILVESTRE Facility:[facility] Procedures Date Procedure Procedure Detail Performing Clinician Start: 10-01-2016 Anes integ extremiti es ant trunk & perineum nos SOORAJ G YERMAL Start: 10-01-2016 BONE BIOPSY OPEN SUPERFICIAL TIFFANIE SILVESTRE Start: 10-01-2016 EXC TR-EXT B9+KERRI >4.0 CM TIFFANIE SILVESTRE Start: 08-24-2016 EXCISION OF JEJUNUM, PERCUTANEOUS ENDOSCOPIC APPROACH TIFFANIE SILVESTRE Start: 08-24-2016 EXCISION OF LEFT RIB , PERC ENDO APPROACH, DIAGN TIFFANIE SILVESTRE Payers Date Payer Category Payer Medicaid [id number] 1961 Medicare [id number] Private Health Insurance [id number] Unknown [id number] Unknown [id number] Summary Purpose Family History No Family History Records FoundNo Family History Records FoundNo Family History Records Found Advance Directives No Advanced Directives Records FoundNo Advanced Directives Records FoundNo Advanced Directives Records Found Additional Source Comments INFORMATION SOURCE (unrecogn ized section and content) DATE CREATED AUTHOR 08/21/[address] [facility] DATE CREATED AUTHOR AUTHOR'S ORGANIZ ATION 02/16/2018 [facility] DATE CREATED AUTHOR AUTHOR'S ORGANIZ ATION 06/10/2022 [facility] [employer] FOR RECORDS PERTAINING TO PATIENTS WHO ARE OR HAVE BEEN ENROLLED IN A CHEMICAL DEPENDENCY/SUBSTANCEABUSE PROGRAM, SOME INFORMATION MAY BE OMITTED. This clinical summary was aggregated from multiple sources. Caution should be exercised in using it in the provision of clinical care. This summary normalizes information from multiple sources, and as a consequence, information in this document may materially change the coding, format and clinical context of patient data. In addition, data may be omitted in some cases. CLINICAL DECISIONS SHOULD BE BASED ON THE PRIMARY CLINICAL RECORDS. [employer] [facility]. provides no warranty or guarantee of the accuracy or completeness of information in this document.
[2023-11-11 09:58] LABS: Estimated Average Glucose 171 mg/dL; Glycohemoglobin A1C 7.6 % (4.5-6.2)
[2023-11-11 10:12] LABS: Alanine Aminotransferase 96 U/L (14-59); Albumin Globulin Ratio 0.8; Albumin Level 2.9 g/dL (3.4-5.0); Alkaline Phosphatase 161 U/L (46-116); Anion Gap 9.7; Aspartate Amino Transferase 39 U/L (15-37); Bilirubin Direct 0.1 mg/dL (0.0-0.2); Bilirubin Total 0.4 mg/dL (0.2-1.0); Carbon Dioxide 29.4 mmol/L (21.0-32.0); Chloride 96 mmol/L (98-107); Estimated GFR (African America >60 (>=60); Estimated GFR (Non-African Ame >60 (>=60); Globulin 3.5 g/dL; Potassium 4.1 mmol/L (3.5-5.1); Sodium 131 mmol/L (136-145); Total Protein 6.4 g/dL (6.4-8.2)
== END 2023-11-11 09:33 | disposition home or self-care (01) ==
LOC: LAB 09:32
PROVIDERS: Visit Provider Internal Medicine
DX: E10.69 Type 1 diabetes mellitus with other specified complication (principal); M24.542 Contracture, left hand; M62.81 Muscle weakness (generalized); R13.12 Dysphagia, oropharyngeal phase; M12.9 Arthropathy, unspecified; S42.201S Unspecified fracture of upper end of right humerus, sequela
CPT/HCPCS: 36415; 80051; 80076; 82565; 83036; 85025

== ENCOUNTER 2023-11-28 23:00 | Outpatient (RCR) | payer MEDICARE, MEDICAID, SELFPAY ==
--- OUTSIDE RECORDS SUMMARY | 2023-11-29 06:58 | XMS_ITS | CCD ---
Author Organization [facility] Care Team Providers Care Alley Cleaner Name Role Phone SILVESTRE, JIANLIN Unavailable Unavailable [...] allopurinol Drug Allergy 6 [facility] Repository (2 sources) amoxicillin / clavulanate Drug Allergy 4 [facility] Repository (3 sources) ciprofloxacin; Translations: [CIPROFLOXACIN] Drug Allergy 4 [facility] Repository (2 sources) ibuprofen Drug Allergy 4 [facility] Repository (3 sources) metFORMIN; Translations: [METFORMIN] Drug Allergy 4 [facility] Repository (3 sources) NSAIDs; Translations: [NSAIDS (NON-STEROIDAL ANTI-INFLAMMATORY DRUG)] Drug allergy (disorder) 4 AOF [facility] Repository (2 sources) pioglitazone Drug Allergy 4 [facility] Repository (2 sources) pregabalin Drug Allergy 4 [facility] Repository (2 sources) rosiglitazone Drug Allergy 4 [facility] Repository (1 source) Fluvirin Drug allergy (disorder) 6 [facility] Repository (1 source) pioglitazone; Translations: [PIOGLITAZONE HCL] Drug Allergy 5 [facility] Repository (1 source) pregabalin; Translations: [PREGABALIN] Drug Allergy 5 [facility] Repository (1 source) rosiglitazone; Translations: [ROSIGLITAZONE MALEATE] Drug Allergy 5 [facility] Repository (1 source) AMOXICILLIN-POT CLAVULANATE; Translations: [AMOXICILLIN-POT CLAVULANATE] Propensity to adverse reactions to drug (disorder) 5 [facility] Repository (1 source) INFLUENZA VIRUS VACCINES; Translations: [INFLUENZA VIRUS VACCINES] Propensity to adverse reactions to drug (disorder) 5 [facility] Repository (1 source) Fluvirin [id number] (PF) Drug allergy (disorder) 4 [facility] Repository (1 source) Tetanus Toxoid,Adsorbed Drug allergy (disorder) 4 [facility] Repository Problems Active Problems Problem Classification [...] disease (1 source) Atherosclerotic heart disease of [place] coronary artery without angina pectoris; Translations: [ATHSCL HEART DISEASE OF [place] CORONARY ARTERY W/O ANG PCTRS] Onset: 10-09-2016 [...] Onset: 08-25-2016 Episodic Other aftercare (1 source) manager long term care (current) use of insulin; Translations: [SYSTEM DEVELOPMENT MANAGER (CURRENT) USE OF INSULIN] Onset: 08-25-2016 Episodic [...] Ammonia (P) [Moles/Vol] 15 umol/L Normal 11-32 [facility] Comment on above: Performed By: #### A MM #### [facility] [address] [address] [address] Mono Jimenez GGTon 06-04-2022 Gamma glutamyl transferase [Catalytic activity/Vol] 18 U/L Normal 8-55 [facility] Comment on above: Performed By: #### G GT, LIVER #### [facility] [address] [address] [address] Mono Jimenez LIVER PROFILEon 06-04-2022 Albumin [Mass/Vol] 2.6 g/dL Critically low 3.4-5.0 Th [facility] Comment on above: Performed By: #### G GT, LIVER #### [facility] [address] [address] [address] Mono Jimenez Albumin/Globulin [Mass ratio] 0.6 {ratio} Normal [facility] Comment on above: Performed By: #### G GT, LIVER #### [facility] [address] [address] [address] Mono Jimenez ALP [Catalytic activity/Vol] 121 U/L Critically high 46-116 [facility] Comment on above: Performed By: #### G GT, LIVER #### [facility] [address] [address] [address] Mono Jimenez ALT [Catalytic activity/Vol] 174 U/L Critically high 14-59 [facility] Comment on above: Performed By: #### G GT, LIVER #### [facility] [address] [address] [address] Mono Jimenez AST [Catalytic activity/Vol] 76 U/L Critically high 15-37 [facility] Comment on above: Performed By: #### G GT, LIVER #### [facility] [address] [address] [address] Mono Jimenez BILI, CONJUGATED 0.1 mg/dL Normal 0.0-0.2 [facility] Comment on above: Performed By: #### G GT, LIVER #### [facility] [address] [address] [address] Mono Jimenez Bilirubin [Mass/Vol] 0.5 mg/dL Normal 0.2-1.0 [facility] Comment on above: Performed By: #### G GT, LIVER #### [facility] [address] [address] [address] Mono Jimenez Globulin (S) [Mass/Vol] 4.1 g/dL Normal [facility] Comment on above: Performed By: #### G GT, LIVER #### [facility] [address] [address] [address] Mono Jimenez Protein [Mass/Vol] 6.7 g/dL Normal 6.4-8.2 [facility] Comment on above: Performed By: #### G GT, LIVER #### [facility] [address] [address] [address] Mono Jimenez BILIRUBIN CONJUGATED (DIRECT )on 04-27-2022 BILI, CONJUGATED 0.1 mg/dL Normal 0.0-0.2 [facility] Comment on above: Performed By: #### D VIJAY, LIPID, CMP, TSH #### [facility] [address] [place] [address] Dr. Mono Jimenez CBC AUTO DIFFon 04-27-2022 BASO # 0.0 103/ul Normal 0.0-0.1 [facility] Comment on above: Performed By: #### D VIJAY, LIPID, CMP, TSH #### [facility] [address] [place] [address] Dr. Mono Jimenez Basophils/100 WBC (Bld) 0.3 % Normal 0.2-2.0 [facility] Comment on above: Performed By: #### D VIJAY, LIPID, CMP, TSH #### [facility] [address] [place] [address] Dr. Mono Jimenez EO # 0.7 103/ul Normal 0.0-0.7 [facility] Comment on above: Performed By: #### D VIJAY, LIPID, CMP, TSH #### [facility] [address] [place] [address] Dr. Mono Jimenez Eosinophils/100 WBC (Bld) 9.5 % Critically high 0.9-7.0 [facility] Comment on above: Performed By: #### D VIJAY, LIPID, CMP, TSH #### [facility] [address] [place] [address] Dr. Mono Jimenez Erythrocyte distribution width (RBC) [Ratio] 12.1 % Normal 11.0-15.0 [facility] Comment on above: Performed By: #### D VIJAY, LIPID, CMP, TSH #### [facility] [address] [place] [address] Dr. Mono Jimenez Hematocrit (Bld) [Volume fraction] 37.2 % Normal 36.0-48.0 [facility] Comment on above: Performed By: #### D VIJAY, LIPID, CMP, TSH #### [facility] [address] [address] [address] Mono Jimenez Hemoglobin (Bld) [Mass/Vol] 12.5 g/dL Normal 12.0-16.0 [facility] Comment on above: Performed By: #### D VIJAY, LIPID, CMP, TSH #### [facility] [address] [address] [address] Mono Jimenez IG # 0.02 10e3/ul Normal 0.00-0.03 [facility] Comment on above: Performed By: #### D VIJAY, LIPID, CMP, TSH #### [facility] [address] [address] [address] Mono Jimenez IG % 0.3 % Normal 0.0-0.5 [facility] Comment on above: Performed By: #### D VIJAY, LIPID, CMP, TSH #### [facility] [address] [address] [address] Mono Jimenez LYMPH # 1.2 103/ul Normal 1.2-3.8 [facility] Comment on above: Performed By: #### D VIJAY, LIPID, CMP, TSH #### [facility] [address] [address] [address] Mono Jimenez Lymphocytes/100 WBC (Bld) 16.3 % Critically low 20.5-60.0 [facility] Comment on above: Performed By: #### D VIJAY, LIPID, CMP, TSH #### [facility] [address] [address] [address] Mono Jimenez MANUAL DIFF REQ NO Normal [facility] Comment on above: Performed By: #### D VIJAY, LIPID, CMP, TSH #### [facility] [address] [address] [address] Mono Jimenez MCH (RBC) [Entitic mass] 30.2 pg Normal 26.7-34.0 [facility] Comment on above: Performed By: #### D VIJAY, LIPID, CMP, TSH #### [facility] [address] [address] [address] Mono Jimenez MCHC (RBC) [Mass/Vol] 33.6 g/dL Normal 29.9-35.2 [facility] Comment on above: Performed By: #### D VIJAY, LIPID, CMP, TSH #### [facility] [address] [place] [address] Dr. Mono Jimenez MCV (RBC) [Entitic vol] 89.9 fL Normal 81.0-99.0 [facility] Comment on above: Performed By: #### D VIJAY, LIPID, CMP, TSH #### [facility] [address] [place] [address] Dr. Mono Jimenez MONO # 0.5 103/ul Normal 0.3-0.8 [facility] Comment on above: Performed By: #### D VIJAY, LIPID, CMP, TSH #### [facility] [address] [place] [address] Dr. Mono Jimenez Monocytes/100 WBC (Bld) 6.6 % Normal 1.7-12.0 [facility] Comment on above: Performed By: #### D VIJAY, LIPID, CMP, TSH #### [facility] [address] [place] [address] Dr. Mono Jimenez NEUT # 5.0 103/ul Normal 1.4-6.5 [facility] Comment on above: Performed By: #### D VIJAY, LIPID, CMP, TSH #### [facility] [address] [place] [address] Dr. Mono Jimenez Neutrophils/100 WBC (Bld) 67.0 % Normal 43.0-75.0 [facility] Comment on above: Performed By: #### D VIJAY, LIPID, CMP, TSH #### [facility] [address] [place] [address] Dr. Mono Jimenez Platelet mean volume (Bld) [Entitic vol] 10.4 fL Normal 9.5-13.5 [facility] Comment on above: Performed By: #### D VIJAY, LIPID, CMP, TSH #### [facility] [address] [place] [address] Dr. Mono Jimenez PLT 192 103/ul Normal 150-450 [facility] Comment on above: Performed By: #### D VIJAY, LIPID, CMP, TSH #### [facility] [address] [address] [address] Mono Jimenez RBC 4.14 106/ul Critically low 4.20-5.40 [facility] Comment on above: Performed By: #### D VIJAY, LIPID, CMP, TSH #### [facility] [address] [address] [address] Mono Jimenez WBC 7.4 103/ul Normal 4.0-11.0 [facility] Comment on above: Performed By: #### D VIJAY, LIPID, CMP, TSH #### [facility] [address] [address] [address] Mono Jimenez GLYCOHEMOGLOBIN A1Con 2022 ADA RECOMMENDATION SEE BELOW Normal [facility] Comment on above: Result Comment: ADA RECOMMENDED LIMIT 4.0 - 6.0 ADA THERAPEUTIC TARGET < 7.0 ACTION SUGGESTED > 7.0 Performed By: #### A 1C #### [facility] [address] [address] [address] Mono Jimenez Glucose [Mass/Vol] 169 mg/dL Normal [facility] Comment on above: Performed By: #### A 1C #### [facility] [address] [place] [address] Dr. Mono Jimenez HbA1c (Bld) [Mass fraction] 7.5 % Critically high 4.5-6.2 [facility] Comment on above: Performed By: #### A 1C #### [facility] [address] [place] [address] Dr. Mono Jimenez LIPID PROFILEon 04-27-2022 CHOL-HDL RATIO NORM SEE BELOW Normal [facility] Comment on above: Result Comment: 3.3 - 4.4 LOW RISK 4.4 - 7.1 AVERAGE RISK 7.1 - 11.0 MODERATE RISK >11.0 HIGH RISK Performed By: #### D VIJAY, LIPID, CMP, TSH #### [facility] [address] [address] [address] Mono Jimenez Cholesterol [Mass/Vol] 131 mg/dL Normal <=200 [facility] Comment on above: Performed By: #### D VIJAY, LIPID, CMP, TSH #### [facility] [address] [address] [address] Mono Jimenez Cholesterol in HDL [Mass/Vol] 66 mg/dL Critically high 40-60 [facility] Comment on above: Performed By: #### D VIJAY, LIPID, CMP, TSH #### [facility] [address] [address] [address] Mono Jimenez Cholesterol in LDL [Mass/Vol] 47.4 mg/dL Normal [facility] Comment on above: Performed By: #### D VIJAY, LIPID, CMP, TSH #### [facility] [address] [address] [address] Mono Jimenez Cholesterol.total/C holesterol in HDL [Mass ratio] 2.0 {ratio} Normal [facility] Comment on above: Performed By: #### D VIJAY, LIPID, CMP, TSH #### [facility] [address] [address] [address] Mono Jimenez HDL NORMAL > or = 60 mg/dl - LO W CARDIOVASCULAR RISK <40 mg/dl - HIGH CARDIOVASCULAR RISK Normal [facility] Comment on above: Performed By: #### D VIJAY, LIPID, CMP, TSH #### [facility] [address] [address] [address] Mono Jimenez LDL CALC NORMAL SEE BELOW Normal [facility] Comment on above: Result Comment: <100 mg/dl OPTIMAL 100 - 129 mg/dl NEAR OR ABOVE OPTIMAL 130 - 159 mg/dl BORDERLINE HIGH 160 - 189 mg/dl HIGH >190 mg/dl VERY HIGH Performed By: #### D VIJAY, LIPID, CMP, TSH #### [facility] [address] [address] [address] Mono Jimenez Triglyceride [Mass/Vol] 88 mg/dL Normal <=150 [facility] Comment on above: Performed By: #### D VIJAY, LIPID, CMP, TSH #### [facility] [address] [address] [address] Mono Jimenez VLDL CALC 17.6 mg/dL Normal [facility] Comment on above: Performed By: #### D VIJAY, LIPID, CMP, TSH #### [facility] [address] [place] [address] Dr. Mono Jimenez PROF 14(COMP METB)on 023 Albumin [Mass/Vol] 2.8 g/dL Critically low 3.4-5.0 Th [facility] Comment on above: Performed By: #### D VIJAY, LIPID, CMP, TSH #### [facility] [address] [address] [address] Mono Jimenez Albumin/Globulin [Mass ratio] 0.8 {ratio} Normal [facility] Comment on above: Performed By: #### D VIJAY, LIPID, CMP, TSH #### [facility] [address] [place] [address] Dr. Mono Jimenez ALP [Catalytic activity/Vol] 134 U/L Critically high 46-116 [facility] Comment on above: Performed By: #### D VIJAY, LIPID, CMP, TSH #### [facility] [address] [place] [address] Dr. Mono Jimenez ALT [Catalytic activity/Vol] 152 U/L Critically high 14-59 [facility] Comment on above: Performed By: #### D VIJAY, LIPID, CMP, TSH #### [facility] [address] [place] [address] Dr. Mono Jimenez Anion gap [Moles/Vol] 12.6 mmol/L Normal [facility] Comment on above: Performed By: #### D VIJAY, LIPID, CMP, TSH #### [facility] [address] [place] [address] Dr. Mono Jimenez AST [Catalytic activity/Vol] 125 U/L Critically high 15-37 [facility] Comment on above: Performed By: #### D VIJAY, LIPID, CMP, TSH #### [facility] [address] [place] [address] Dr. Mono Jimenez Bilirubin [Mass/Vol] 0.4 mg/dL Normal 0.2-1.0 [facility] Comment on above: Performed By: #### D VIJAY, LIPID, CMP, TSH #### [facility] [address] [place] [address] Dr. Mono Jimenez Calcium [Mass/Vol] 8.4 mg/dL Critically low 8.5-10.1 Th [facility] Comment on above: Performed By: #### D VIJAY, LIPID, CMP, TSH #### [facility] [address] [address] [address] Mono Jimenez Chloride [Moles/Vol] 104 mmol/L Normal 98-107 [facility] Comment on above: Performed By: #### D VIJAY, LIPID, CMP, TSH #### [facility] [address] [address] [address] Mono Jimenez CO2 [Moles/Vol] 28.4 mmol/L Normal 21.0-32.0 [facility] Comment on above: Performed By: #### D VIJAY, LIPID, CMP, TSH #### [facility] [address] [address] [address] Mnoo Jimenez Creatinine [Mass/Vol] 0.62 mg/dL Normal 0.55-1.02 [facility] Comment on above: Performed By: #### D VIJAY, LIPID, CMP, TSH #### [facility] [address] [place] [address] Dr. Mono Jimenez EGFR-AF CONGOLESE >60 Normal >=60 [facility] Comment on above: Performed By: #### D VIJAY, LIPID, CMP, TSH #### [facility] [address] [place] [address] Dr. Mono Jimenez EGFR-NON AF CONGOLESE >60 Normal >=60 [facility] Comment on above: Performed By: #### D VIJAY, LIPID, CMP, TSH #### [facility] [address] [address] [address] Mono Jimenez Globulin (S) [Mass/Vol] 3.3 g/dL Normal [facility] Comment on above: Performed By: #### D VIJAY, LIPID, CMP, TSH #### [facility] [address] [place] [address] Dr. Mono Jimenez Glucose [Mass/Vol] 250 mg/dL Critically high 74-106 [facility] Comment on above: Performed By: #### D VIJAY, LIPID, CMP, TSH #### [facility] [address] [place] [address] Dr. Mono Jimenez Potassium [Moles/Vol] 5.0 mmol/L Normal 3.5-5.1 [facility] Comment on above: Performed By: #### D VIJAY, LIPID, CMP, TSH #### [facility] [address] [place] [address] Dr. Mono Jimenez Protein [Mass/Vol] 6.1 g/dL Critically low 6.4-8.2 Th [facility] Comment on above: Performed By: #### D VIJAY, LIPID, CMP, TSH #### [facility] [address] [place] [address] Dr. Mono Jimenez Sodium [Moles/Vol] 140 mmol/L Normal 136-145 [facility] Comment on above: Performed By: #### D VIJAY, LIPID, CMP, TSH #### [facility] [address] [place] [address] Dr. Mono Jimenez Urea nitrogen [Mass/Vol] 28.0 mg/dL Critically high 7.0-18.0 [facility] Comment on above: Performed By: #### D VIJAY, LIPID, CMP, TSH #### [facility] [address] [place] [address] Dr. Mono Jimenez Urea nitrogen/Creatinine [Mass ratio] 45.2 mg/mg Normal [facility] Comment on above: Performed By: #### D VIJAY, LIPID, CMP, TSH #### [facility] [address] [place] [address] Dr. Mono Jimenez TSHon 04-27-2022 TSH 1.729 uIU/mL Normal 0.358-3.740 [facility] Comment on above: Performed By: #### D VIJAY, LIPID, CMP, TSH #### [facility] [address] [place] [address] Dr. Mono Jimenez VITAMIN B12on 04-27-2022 Cobalamin (Vitamin B12) [Mass/Vol] 3156.0 pg/mL Critically high 193.0-986.0 [facility] Comment on above: Performed By: #### V ITAD, VITB12 #### [facility] [address] [address] [address] Mono Jimenez VITAMIN D 25 OHon 04-27-2022 VIT D 25-OH 55.9 ng/mL Normal [facility] Comment on above: Performed By: #### V ITAD, VITB12 #### [facility] [address] [place], [place] [address] Dr. Mono Jimenez VIT D RANGES SEE BELOW Normal [facility] Comment on above: Result Comment: <20 ng/mL Vit D deficient 20 - <30 ng/mL Vit D insufficient 30 - 100 ng/mL Vit D sufficient >100 ng/mL Potential Toxicity Performed By: #### V ITAD, VITB12 #### [facility] [address] [address] [address] Mono Jimenez CNOVon 02-10-2018 CNOV Office Visit (GENSMN) -------FEIM FRANKS ([id number]) 1970 FDate Time Provider Qtmuzekeqf15/17/18 10:30 AM GANGA BARRIOS During your visit today, we recorded the following information about you: Temperature Pulse Respiration Blood pressure 97.7 degrees 71/minute 18/minute 114/64Galina Clement MD, 02/10/2018 1:14 PM SignedSURGICAL SERVICES HANDPSERVICE DATE: 02/10/2018SERVICE TIME: 12:02 [facility]: Jose Antonio Beach, PANKAJubjectgailWEST RIVER HEALTH SERVICESRAYMUNDO COMPLAINT: Non-healing abdominal woundHISTORY OF PRESENT ILLNESS: [...] it has not healed. She lives at [facility] and has been getting most of her care locally. Her parents called the [facility] center requesting a wound care appointment and [...] of wound- Recommend follow up with home mine foreman and archival records clerk for bettermanagement of glucose and nutrition (offered to refer to [facility] provider, butpatient's mother declined)SIGNATURE: Galina Clement MD PATIENT NAME: Femi FranksDATE: February 10, 2018 : 12:02 PM PAGER/CONTACT #: [id number] Barrios MD 02/10/2018 1:14 PM SignedPatient with [...] Visit Diagnosis:Wound infection [T14.8XXA, L08.9]Order(s):CONSULT TO THORACIC [523801] Order #: [id number]: 1Prescriptions as of 02/10/2018 Sig: ACETAMINOPHEN 325 MG TABLET Tylenol 325 mg tablet Take * ALBUTEROL SULFATE 1.25 MG/3 M* Use 1 Ampule via nebulizer ev* BACLOFEN 10 MG TABLET Take 10 mg by mouth three car* BASAGLAR KWIKPEN U-100 INSULI* CYANOCOBALAMIN (VIT B-12) 1,0* M67-Cxscs 1,000 mcg tablet * DEXTROMETHORPHAN 20 MG-QUINID* Nuedexta 20 mg-10 mg capsule FERROUS SULFATE 325 MG (65 MG* ferrous sulfate 325 mg (65 mg* FLUCONAZOLE 100 MG TABLET INSULIN ASPART U-100 100 UNI* Novolog U-100 Insulin aspart * INSULIN GLARGINE (U-100) 100 * Inject 15 Units subcutaneousl* ZANUUS-BHIRTCWA-ZKPCBIP 36,00* Creon 36,000 unit-114,000 uni* LISINOPRIL 20 [...] affect* Patient not taking: Reported on 01/10/2018 MULTIVITAMIN,UB-[id number] LS* Take 1 tablet by mouth once [...] Status:Closed by GANGA BARRIOS MD on 02/10/18 [facility] 02-10-2018 CNPN Telephone (SHA) -------FEMI FRANKS ([id number]) 1970 [facility] Time Provider Zkiigctyed00/17/18 CORINE TOTH During your visit today, we recorded the following information about you:Michelle Juares, RN, RN 02/12/2018 9:28 AM AddendumThoracic Surgery Consultation - review of records for appointment schedulingReceived medical records from the office ofGanga Barrios MD[address] [facility] [address]Koskj: [phone]:Patient is being referred to Dr. Toth by Dr. Barrios for 7th RibOsteomyelitisRecords in [facility] .Imaging:CT Abdomen/Pelvis 02/10/18:IMPRESSION:SOFT TISSUE WOUND [...] general surgery previously placed 12/05/2017- will have vest front presser coordinate appt w/gen surg as soon as [...] AM Modules accepted: OrdersReferring Provider: GANGA BARRIOS [[id number]]Allergies As of Date: 02/10/2018 Noted Allergy ReactionACTOS [...] conditions ruled out [Z03.89]Order(s):MRI CHEST WO IVCON [[id number]] Order #: [id number] FUTURE SPIROMETRY WITH DILATOR IF OBSTRUCTED [[id number]] Order #: [id number] FUTURE LUNG DIFFUSION CAPACITY (DLCO) [8465302] Order #: [id number] FUTUREPrescriptions as of 02/10/2018 Sig: ACETAMINOPHEN 325 MG TABLET Tylenol 325 mg tablet Take * ALBUTEROL SULFATE 1.25 MG/3 M* Use 1 Ampule via nebulizer ev* BACLOFEN 10 MG TABLET Take 10 mg by mouth three car* BASAGLAR KWIKPEN U-100 INSULI* CYANOCOBALAMIN (VIT B-12) 1,0* H72-Acvwe 1,000 mcg tablet * DEXTROMETHORPHAN 20 MG-QUINID* Nuedexta 20 mg-10 mg capsule FERROUS SULFATE 325 MG (65 MG* ferrous sulfate 325 mg (65 mg* FLUCONAZOLE 100 MG TABLET INSULIN ASPART U-100 100 UNI* Novolog U-100 Insulin aspart * INSULIN GLARGINE (U-100) 100 * Inject 15 Units subcutaneousl* ORIJOW-EIGGPADR-CWACIPC 36,00* Creon 36,000 unit-114,000 uni* LISINOPRIL 20 [...] affect* Patient not taking: Reported on 01/10/2018 MULTIVITAMIN,OF-[id number] LS* Take 1 tablet by mouth once [...] Status:Closed by MICHELLE JUARES on 02/10/18 Normal [facility] CT ABD/PEL WO IVCONon 2017 CT ABD/PEL WO IVCON * * *Final Report* * *DATE OF EXAM: Feb 10 2018 10:46AM [facility] [place]/PEL WO IVCON / [...] SCAN OR MRI.NO ACUTE INTRA-ABDOMINAL OR INTRAPELVIC FINDING.Laminator [employer]: BABAR Transcribe Date/Time: Feb 10 2018 11:03ADictated by : YOUSIF CHAN MDThis examination was interpreted and the report reviewed and electronically signed by: YOUSIF CHAN MD on Feb 10 2018 11:18AM [id number] Normal [facility] HISTORY PHYSICALon HISTORY PHYSICAL HNO ID: [id number] thor: Galina (Emma Clement, MDService: (none)Author Type: ResidentType: HANDPFiled: 02/10/2018 1:14 PMNote Text:SURGICAL SERVICES HANDPSERVICE DATE: 02/10/2018SERVICE TIME: 12:02 [facility]IAN: Jose Antonio Beach, PANKAJubjectiveCHIRAYMUNDO COMPLAINT: [...] time, it has not healed. Shelives at [facility] and has been getting most of her carelocally. Her parents called [facility] call center requesting a wound careappointment [...] of wound- Recommend follow up with home mine foreman and archival records clerk forbetter management of glucose and nutrition ([facility] but patient's mother declined)SIGNATURE: Galina Clement MD PATIENT NAME: Femi FranksDATE: February 10, 2018 : 12:02 PM PAGER/CONTACT #: [phone] Normal [facility] PROGRESSon 02-10-2018 Protein mass conc HNO ID: [id number] thor: Ganga Zavaltearvice: (none)Author Type: PhysicianType: Progress NotesFiled: 02/10/2018 1:14 PMNote Text:Patient with nonhealing wound after J tube removal and 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 Needs thoracic surgeryconsult.Angela Resendez 20171:14 PM Normal [facility] Protein mass conc HNO ID: [id number] thor: Mino Wilkinson CtService: (none)Author Type: (none)Type: Progress NotesFiled: 02/10/2018 10:43 AMNote Text: Radiology Service Progress NotePATIENT NAME: Femi FranksMRN: [id number] OF SERVICE: February 10, 2018TIME: 10:39 AMPATIENT IDENTITY VERIFICATION COMPLETED USING TWO (2) METHODS: Patientconfirmed name verbally and ID band matches..PATIENT GENDER DATA: Female. status: : NoBreastfeeding status: NO.PATIENT RELEVANT IMPLANT DATA REVIEWED: Not ApplicableRADIOLOGY DEPARTMENT: CT; Exam(s) Completed: Abdomen/PelvisPERIPHERAL IV DATA: Not applicableSIGNED BY: Mino Wilkinson CtDecember 2017 10:39 AM Normal [facility] CNOVon 01-10-2018 CNOV Office Visit (PLASMN) -------FEMI FRANKS ([id number]) 1970 FDate Time Provider Fddbigqozs88/16/18 11:00 AM CRISTINA BROOKS During your visit [...] general surgery previously placed 12/05/2017- will have vest front presser coordinate appt w/gen surg as soon as [id number]/f; presenting for evaluation of non healing wound [...] wound/abd infection that requiredadditional surgery. Followed at [facility] by wound doctor, father unsure [...] probing sinus tract of unknown depth.Rommel Cottrell, [facility] HOSPITALPlastic Surgery - Surgical Wound Service; [id number] 5pm and on weekends, please page on-call plastics at pager [phone].[facility] STAFF PHYSICIAN NOTE OF PERSONAL [...] to see general surgery todaySIGNATURE: DEMETRIA KnappAGER: [id number] of SERVICE: January 10, 2018TIME of SERVICE: 11:39 AMReferring Provider: JACK ROQUE JR [[id number]]Allergies As of Date: 01/10/2018 Noted Allergy ReactionACTOS [...] KWIKPEN U-100 INSULI* CYANOCOBALAMIN (VIT B-12) 1,0* I19-Fucho 1,000 mcg tablet * DEXTROMETHORPHAN 20 MG-QUINID* Nuedexta 20 mg-10 mg capsule FERROUS SULFATE 325 MG (65 MG* ferrous sulfate 325 mg (65 mg* FLUCONAZOLE 100 MG TABLET INSULIN ASPART U-100 100 UNI* Novolog U-100 Insulin aspart * INSULIN GLARGINE (U-100) 100 * Inject 15 Units subcutaneousl* RUPUNT-IYNIUEOM-UVOMXTI 36,00* Creon 36,000 unit-114,000 uni* LISINOPRIL 20 [...] affect* Patient not taking: Reported on 01/10/2018 MULTIVITAMIN,OB-LMQX-ZOHRRW LS* Take 1 tablet by mouth once [...] Status:Closed by CRISTINA BROOKS MD on 02/09/18 [facility] PROGRESSon 01-10-2018 Protein mass conc HNO ID: [id number] thor: Cristina Awadervice: (none)Author Type: PhysicianType: Progress [...] general surgery previously placed 12/05/2017- will have vest front presser coordinate appt w/gen surg as soon as rnoubytf64/f; presenting for evaluation of non healing wound [...] infection that required additional surgery. Followed at [facility] bywound doctor, father unsure what [...] Cottrell CNPPlastic Surgery - Surgical Wound Service; [id number] 5pm and on weekends, please page on-call plastics at pager [phone].[facility] STAFF PHYSICIAN NOTE OF PERSONAL [...] see general surgery todaySIGNATURE: Cristina Brooks, MDPAGER: [phone] of SERVICE: January 10, 2018TIME of SERVICE: 11:39 AM Normal [facility] CNOVon 12-05-2017 CNOV Office Visit (PLASMN) -------FEMI FRANKS ([id number]) 1970 FDate Time Provider Nwdmbnaiak72/11/18 10:15 AM RAJWINDER CAMPOS (ZORAIDA) SOSA During your visit today, we recorded the following information about you: Temperature Pulse Blood pressure 96.8 degrees 60/minute 109/64Afsha LEW Campos.[employer]ESS OPERATOR 12/05/2017 5:32 PM SignedNew Patient Evaluation/ExaminationPATIE NT NAME: Femi FranksMRN: [id number] BY: Self-referredCHIEF COMPLAINT: G tube woundHPI: Femi [...] surgery for further guidance and management at [facility]-possible external gastric fistulaSeen and discussed with [...] 16 - UnknownDate Reviewed: 07/22/2014Reviewed by: Marianne ([facility]) ZORAIDA Chew - Fully AssessedReason for Visit: Consult [173]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] Other Visit Diagnoses:Diabetes mellitus type 2, uncontrolled, without complications (HCC) [E11.65] Anoxic brain injury (HCC) [G93.1]Order(s):CONSULT TO GENERAL SURGERY [9012] Order #: [id number]: 1Prescriptions as of 12/05/2017 Sig: MULTIVITAMIN,FA-STWH-YCXOEK LS* Take 1 tablet by mouth once [...] by mouth three car* OMEPRAZOLE 20 MG CAPSULE,REIKA* Take 20 mg by mouth once michelle* [...] by RAJWINDER CAMPOS CNP on 12/05/17 Normal [facility] PROGRESSon 12-05-2017 Protein mass conc HNO ID: [id number] thor: Rajwinder (Zoraida) HussainiService: (none)Author Type: Nurse PractitionerType: Progress NotesFiled: 12/05/2017 5:32 PMNote Text:New Patient Evaluation/ExaminationPATIE NT NAME: Femi FranksMRN: [id number] BY: Self-referredCHIEF COMPLAINT: G tube woundHPI: Femi Frnaks is a 47 year old female presenting [...] surgery for further guidance and management at [facility]-possible external gastric fistulaSeen and discussed with staff surgeon, Dr. Nabeel Viramontes, who is inagreement with above plan.Rajwinder Campos APRN.CNPOctober 20175:29 PMThis visit lasted for more than 30 minutes and greater than 50% of thevisit was involved in the discussion of the options for treatment. Normal [facility] BASIC METABOLIC PANELon - Calcium 8.6 mg/dL Normal 8.6-10.3 [facility] Comment on above: Performed By: #### 8 5499 ####[facility] Chloride 101 mmol/L Normal 98-107 [facility] Comment on above: Performed By: #### 8 5499 ####[facility] CO2 28 mmol/L Normal 21-31 [facility] Comment on above: Performed By: #### 8 5499 ####[facility] [facility].[address] Creatinine 0.56 mg/dL Low 0.60-1.20 [facility] Comment on above: Performed By: #### 8 5499 ####[facility] [facility].[address] eGFR (black) mL/min/{1.73_m2} Normal >60 [facility] Comment on above: Performed By: #### 8 5499 ####[facility] [facility].[address] eGFR (non-black) mL/min/{1.73_m2} Normal >60 Th e [facility] Comment on above: Performed By: #### 8 5499 ####[facility] [place] [address], [facility] Glucose mass conc 13 mg/dL Critically low 70-100 [facility] Comment on above: Result Comment: M-CR ITICAL RESULT(S) REVIEWED, CALLED TO AND READ BACK BY WILLARD SHAIKH 1615 Performed By: #### 8 5499 ####[facility] [place] [address], [facility] Potassium molar conc 3.6 mmol/L Normal 3.5-5.1 [facility] Comment on above: Performed By: #### 8 5499 ####[facility] [place] [address], [facility] Sodium 135 mmol/L Low 136-145 [facility] Comment on above: Performed By: #### 8 5499 ####[facility] [place] [address], [facility] Urea nitrogen 12 mg/dL Normal 7-25 [facility] Comment on above: Performed By: #### 8 5499 ####[facility] [place] [address], [facility] POC GLUCOSE EDon 10-23-2016 Glucose mass conc 340 mg/dL High 70-100 [facility] Comment on above: Performed By: #### 8 5499 ####[facility] [place] [address], [facility] Glucose mass conc 20 mg/dL Critically low 70-100 [facility] Comment on above: Performed By: #### 8 5499 ####[facility] [place] [address], [facility] Discharge Summaryon 10-19-19 17 Discharge Summary [id number] Admitted: 10/09/2016 Discharged: [...] in part due [facility]. Therefore, at this hospitalization she was started wgaxq-cq-kbe dressings with Dakin b.i.d. Social Work was [...] fordischarge.DISCHARGE DISPOSITION: The patient was discharged to [facility] nursing [facility] in good condition.DISCHARGE INSTRUCTIONS: The patient should [...] liquid oral 5 times per day.2. Creon 30472 units oral 3 times per day.3. Ferrous [...] Dict: 10/17/2016/09:10 P/Veronica Byrd Trans: 10/18/2016 07:57 A/CandidoN_JN:[id number] : Jack Roque D.O. [address] [place] [address] [facility] [address] Normal [facility] CORTISOLon 10-12-2016 CORTISOL 13.0 mcg/dL Normal [facility] Comment on above: Order Comment: No: D o not add to previous draw Result Comment: Refe rence Range:AM 6.0-23.0 mcg/dLPM 0.0-9.0 mcg/dL Performed By: #### 1 0070, 16585, 11593 ####[facility] [place] [address], [facility] POC GLUCOSE LABon 10-12-2016 Glucose mass conc 311 mg/dL High 70-100 [facility] Comment on above: Performed By: #### 1 0070, 64300, 03831 ####[facility] [place] [address], [facility] Glucose mass conc 247 mg/dL High 70-100 [facility] Comment on above: Performed By: #### 1 0070, 51249, 46184 ####[facility] Glucose mass conc 47 mg/dL Critically low 70-100 [facility] Comment on above: Order Comment: No: D o not add to previous draw Performed By: #### 1 0070, 72455, 34606 ####[facility]3000 [facility] [place] [address], [facility] BASIC METABOLIC PANELon 09-25 Calcium 8.0 mg/dL Low 8.6-10.3 [facility] Comment on above: Order Comment: No: D o not add to previous draw Performed By: #### 1 0070, 85533, 29722 ####[facility] [place] [address], [facility] Chloride 99 mmol/L Normal 98-107 [facility] Comment on above: Order Comment: No: D o not add to previous draw Performed By: #### 1 0070, 17868, 05927 ####[facility] [place] [address], [facility] CO2 29 mmol/L Normal 21-31 [facility] Comment on above: Order Comment: No: D o not add to previous draw Performed By: #### 1 0070, 25625, 04788 ####[facility] [place] [address], [facility] Creatinine 0.53 mg/dL Low 0.60-1.20 [facility] Comment on above: Order Comment: No: D o not add to previous draw Performed By: #### 1 0070, 53711, 10439 ####[facility] [place] [address], [facility] eGFR (black) mL/min/{1.73_m2} Normal >60 [facility] Comment on above: Order Comment: No: D o not add to previous draw Performed By: #### 1 0070, 00558, 19681 ####[facility] [place] [address], [facility] eGFR (non-black) mL/min/{1.73_m2} Normal >60 Th e [facility] Comment on above: Order Comment: No: D o not add to previous draw Performed By: #### 1 0070, 90381, 78257 ####[facility] [place] [address], [facility] Glucose mass conc 231 mg/dL High 70-100 [facility] Comment on above: Order Comment: No: D o not add to previous draw Performed By: #### 1 0070, 87768, 45364 ####[facility] [place] [address], [facility] Potassium molar conc 5.1 mmol/L Normal 3.5-5.1 [facility] Comment on above: Order Comment: No: D o not add to previous draw Performed By: #### 1 0070, 62200, 55165 ####[facility] [place] [address], [facility] Sodium 132 mmol/L Low 136-145 [facility] Comment on above: Order Comment: No: D o not add to previous draw Performed By: #### 1 0070, 04551, 05015 ####[facility] [facility] [place] [address], [facility] Urea nitrogen 14 mg/dL Normal 7-25 [facility] Comment on above: Order Comment: No: D o not add to previous draw Performed By: #### 1 0070, 23395, 58492 ####[facility] [facility] [place] [address], [facility] C PEPTIDE [id number] 10-11-2016 C PEPTIDE 0.4 ng/mL Low 0.8-3.5 [facility] Comment on above: Order Comment: No: D o not add to previous draw Result Comment: INTE RPRETIVE INFORMATION: C-Peptide, Serum or PlasmaReference Interval applies to fasting specimens. To convertto nmol/L, multiply by 0.33Performed by [employer],[address] [place] [id number] lyl[address]Ipropertyz, Jas Street MD - Lab. Director CBC W/DIFFon 10-11-2016 Basophils Auto #/vol (Bld) 0.2 % Normal 0.0-2.0 [facility] Comment on above: Order Comment: No: D o not add to previous draw Performed By: #### 1 0070, 86749, 86971 ####[facility] [facility] [place] [address], [facility] Eosinophils/100 leukocytes 2.1 % Normal 0.0-5.0 [facility] Comment on above: Order Comment: No: D o not add to previous draw Performed By: #### 1 0070, 45634, 86554 ####[facility] [facility] [place] [address], [facility] Erythrocyte distribution width Auto Ratio (RBC) 13.4 % Normal 11.5-16.9 [facility] Comment on above: Order Comment: No: D o not add to previous draw Performed By: #### 1 0, 07874, 08946 ####[facility] Erythrocytes (RBC) 3.60 mill/mm3 Normal 3.50-5.50 [facility] Comment on above: Order Comment: No: D o not add to previous draw Performed By: #### 1 0, 09171, 23524 ####[facility] Hematocrit (HCT) 30.3 % Low 36.0-48.0 [facility] Comment on above: Order Comment: No: D o not add to previous draw Performed By: #### 1 0, , 67741 ####[facility] Hemoglobin mass conc (Bld) 10.0 g/dL Low 12.0-15.0 [facility] Comment on above: Order Comment: No: D o not add to previous draw Performed By: #### 1 0, 09907, 71756 ####[place] [address] [facility].[address] Lymphocytes/100 leukocytes 29.5 % Normal 20.0-40.0 [facility] Comment on above: Order Comment: No: D o not add to previous draw Performed By: #### 1 0, 41991, 47996 ####[facility] MCH 27.9 pg Normal 24.0-32.0 [facility] Comment on above: Order Comment: No: D o not add to previous draw Performed By: #### 1 0, 81996, 75028 ####[facility] [place] [address], [facility] MCHC mass conc (RBC) 33.1 g/dL Normal 32.0-36.0 [facility] Comment on above: Order Comment: No: D o not add to previous draw Performed By: #### 1 0070, 73799, 38012 ####[facility] [place] [address], [facility] MCV 84.2 fL Normal 80.0-100.0 [facility] Comment on above: Order Comment: No: D o not add to previous draw Performed By: #### 1 0070, 40686, 94819 ####[facility] [place] [address], [facility] METHOD Normal [facility] Comment on above: Order Comment: No: D o not add to previous draw Result Comment: Auto mated differential performedNormal RBC Morphology Performed By: #### 1 0070, 96466, 05258 ####[facility] [place] [address], [facility] MONOS 8.0 % Normal 2-8 [facility] Comment on above: Order Comment: No: D o not add to previous draw Performed By: #### 1 0070, 41419, 58414 ####[facility] [place] [address], [facility] Neutrophils/100 leukocytes 60.2 % Normal 50-70 [facility] Comment on above: Order Comment: No: D o not add to previous draw Performed By: #### 1 0070, 47389, 11322 ####[facility] [place] [address], [facility] PLAT CNT 253 Thou/mm3 Normal 100-400 [facility] Comment on above: Order Comment: No: D o not add to previous draw Performed By: #### 1 0070, 58152, 68312 ####[facility] [place] [address], [facility] WBC (Leukocytes) 6.6 Thou/mm3 Normal 4.0-10.0 [facility] Comment on above: Order Comment: No: D o not add to previous draw Performed By: #### 1 0070, 28920, 91189 ####[facility] [place] [address], [facility] GLUTAMIC ACID DECARBOXYLASE AB [id number] 10-11-2016 YO AB <5.0 Normal 0.0-5.0 [facility] Comment on above: Order Comment: Yes: Add to Previous draw if able Result Comment: INTE RPRETIVE INFORMATION: Glutamic Acid Decarboxylase AntibodyA value greater than 5.0 IU/mL is considered positive forGlutamic Acid Decarboxylase Antibody.Performed by [employer],[address] [place] [address] hii.Ipropertyz, Jas Street MD - Lab. Director HEMOGLOBIN A1Con 10-11-2016 Glucose mass conc 246 mg/dL High 70-126 [facility] Comment on above: Order Comment: No: D o not add to previous draw Performed By: #### 1 0070, 88986, 85152 ####[facility] [facility] [place] [address], [facility] Hemoglobin A1c/Hemoglobin.tota l mass fraction (Bld) 10.2 % High 4.0-6.0 [facility] Comment on above: Order Comment: No: D o not add to previous draw Performed By: #### 1 0070, 38446, 51195 ####[facility] [place] [address], [facility] MAGNESIUM BLOODon 10-11-2016 Magnesium 1.8 mg/dL Low 1.9-2.7 [facility] Comment on above: Order Comment: No: D o not add to previous draw Performed By: #### 1 0070, 26724, 66393 ####[facility] [place] [address], [facility] POC GLUCOSE LABon 10-11-2016 Glucose mass conc 94 mg/dL Normal 70-100 [facility] Comment on above: Performed By: #### 1 0070, 25204, 29495 ####[facility] [place] [address], [facility] Glucose mass conc 159 mg/dL High 70-100 [facility] Comment on above: Performed By: #### 1 0070, 39472, 81091 ####[facility] [place] [address], [place] Glucose mass conc 267 mg/dL High 70-100 [facility] Comment on above: Performed By: #### 1 0070, 44862, 34824 ####[facility] [place] [address], [facility] Glucose mass conc 301 mg/dL High 70-100 [facility] Comment on above: Performed By: #### 1 0, 71787, 77153 ####[facility] [place] [address], [facility] BASIC METABOLIC PANELon 08- Calcium 8.3 mg/dL Low 8.6-10.3 [facility] Comment on above: Performed By: #### 1 0070, 19923, 09371 ####[facility] [place] [address], [facility] Chloride 97 mmol/L Low 98-107 [facility] Comment on above: Performed By: #### 1 0070, 39174, 78399 ####[facility] [place] [address], [place] CO2 27 mmol/L Normal 21-31 [facility] Comment on above: Performed By: #### 1 0070, 77770, 65470 ####[facility] [place] [address], [place] Creatinine 0.55 mg/dL Low 0.60-1.20 [facility] Comment on above: Performed By: #### 1 0070, 26546, 03400 ####[facility]3000 [facility].[address] eGFR (black) mL/min/{1.73_m2} Normal >60 [facility] Comment on above: Performed By: #### 1 0, 72457, 23831 ####[facility] eGFR (non-black) mL/min/{1.73_m2} Normal >60 Th e [facility] Comment on above: Performed By: #### 1 0, 26774, 23943 ####[place] [address] [facility].[address] Glucose mass conc 110 mg/dL High 70-100 [facility] Comment on above: Performed By: #### 1 0, 27235, 49565 ####[address] Potassium molar conc 4.8 mmol/L Normal 3.5-5.1 [facility] Comment on above: Performed By: #### 1 0, 90919, 09142 ####[place] [address] [facility].[address] Sodium 133 mmol/L Low 136-145 [facility] Comment on above: Performed By: #### 1 0, 36249, 44113 ####[place] [address] [address] Urea nitrogen 9 mg/dL Normal 7-25 [facility] Comment on above: Performed By: #### 1 0, 28993, 06786 ####[place] [address] [facility].[address] CBC W/DIFFon 10-10-2016 Basophils Auto #/vol (Bld) 0.1 % Normal 0.0-2.0 [facility] Comment on above: Order Comment: No: D o not add to previous draw Performed By: #### 1 0, 12356, 14999 ####[facility] [place] [address], [facility] Eosinophils/100 leukocytes 2.3 % Normal 0.0-5.0 [facility] Comment on above: Order Comment: No: D o not add to previous draw Performed By: #### 1 0, 66243, 29370 ####[facility] [place] [address], [facility] Erythrocyte distribution width Auto Ratio (RBC) 13.5 % Normal 11.5-16.9 [facility] Comment on above: Order Comment: No: D o not add to previous draw Performed By: #### 1 0, 01073, 48956 ####[facility] [facility] [place] [address], [facility] Erythrocytes (RBC) 3.93 mill/mm3 Normal 3.50-5.50 [facility] Comment on above: Order Comment: No: D o not add to previous draw Performed By: #### 1 0, 98231, 82495 ####[facility] [facility] [place] [address], [facility] Hematocrit (HCT) 33.2 % Low 36.0-48.0 [facility] Comment on above: Order Comment: No: D o not add to previous draw Performed By: #### 1 0, 52458, 38123 ####[facility] [place] [address], [facility] Hemoglobin mass conc (Bld) 11.1 g/dL Low 12.0-15.0 [facility] Comment on above: Order Comment: No: D o not add to previous draw Performed By: #### 1 0, 38807, 74826 ####[facility] [place] [address], [facility] Lymphocytes/100 leukocytes 28.7 % Normal 20.0-40.0 [facility] Comment on above: Order Comment: No: D o not add to previous draw Performed By: #### 1 0070, 59709, 15415 ####[facility] [place] [address], [facility] MCH 28.3 pg Normal 24.0-32.0 [facility] Comment on above: Order Comment: No: D o not add to previous draw Performed By: #### 1 0, 75488, 73217 ####[facility] [place] [address], [facility] MCHC mass conc (RBC) 33.5 g/dL Normal 32.0-36.0 [facility] Comment on above: Order Comment: No: D o not add to previous draw Performed By: #### 1 0, 85000, 41736 ####[facility] [facility] [place] [address], [facility] MCV 84.4 fL Normal 80.0-100.0 [facility] Comment on above: Order Comment: No: D o not add to previous draw Performed By: #### 1 0, 70766, 50063 ####[facility] [facility] [place] [address], [facility] METHOD Normal [facility] Comment on above: Order Comment: No: D o not add to previous draw Result Comment: Auto mated differential performedNormal RBC Morphology Performed By: #### 1 0070, 28889, 80530 ####[facility] [place] [address], [facility] MONOS 8.8 % High 2-8 [facility] Comment on above: Order Comment: No: D o not add to previous draw Performed By: #### 1 0070, 18548, 02422 ####[facility] [place] [address], [facility] Neutrophils/100 leukocytes 60.1 % Normal 50-70 [facility] Comment on above: Order Comment: No: D o not add to previous draw Performed By: #### 1 0070, 32607, 55893 ####[facility] [place] [address], [facility] PLAT CNT 314 Thou/mm3 Normal 100-400 [facility] Comment on above: Order Comment: No: D o not add to previous draw Performed By: #### 1 0070, 51761, 89544 ####[facility] WBC (Leukocytes) 7.3 Thou/mm3 Normal 4.0-10.0 [facility] Comment on above: Order Comment: No: D o not add to previous draw Performed By: #### 1 0070, 54701, 12195 ####[facility] [facility].[address] LIVER BATTERYon 10-10-2016 Alanine aminotransferase (ALT) 20 U/L Normal 7-52 [facility] Comment on above: Performed By: #### 1 0070, 37291, 27644 ####[facility] [facility].[address] Albumin 2.7 g/dL Low 3.5-5.7 [facility] Comment on above: Performed By: #### 1 0070, 36137, 34837 ####[facility] [facility].[address] ALKALINE PHOSPH 145 IU/L High 34-104 [facility] Comment on above: Performed By: #### 1 0070, 71736, 66720 ####[facility] [facility].[address] Aspartate aminotransferase (AST) 22 U/L Normal 13-39 [facility] Comment on above: Performed By: #### 1 0070, 58857, 07767 ####[facility] [place] [address], [facility] Bilirubin (direct) 0.1 mg/dL Normal 0.0-0.2 [facility] Comment on above: Performed By: #### 1 0, 11012, 42999 ####[facility] [place] [address], [facility] Bilirubin (total) 0.3 mg/dL Normal 0.3-1.0 [facility] Comment on above: Performed By: #### 1 0, 56742, 60291 ####[facility] [place] [address], [facility] Protein 5.8 g/dL Low 6.0-8.3 [facility] Comment on above: Performed By: #### 1 0, 66807, 64067 ####[facility] [facility] [place] [address], [facility] MAGNESIUM BLOODon 10-10-2016 Magnesium 1.7 mg/dL Low 1.9-2.7 [facility] Comment on above: Order Comment: No: D o not add to previous draw Performed By: #### 1 0, 80392, 89260 ####[facility] [facility] [place] [address], [facility] PHOSPHORUS BLOODon 7 Phosphate 3.2 mg/dL Normal 2.5-5.0 [facility] Comment on above: Order Comment: No: D o not add to previous draw Performed By: #### 1 0, 10584, 20228 ####[facility] [place] [address], [facility] POC GLUCOSE LABon 10-10-2016 Glucose mass conc 132 mg/dL High 70-100 [facility] Comment on above: Performed By: #### 1 0, 70982, 91275 ####[facility] [place] [address], [facility] Glucose mass conc 368 mg/dL High 70-100 [facility] Comment on above: Performed By: #### 1 0070, 16938, 57898 ####[facility] [place] [address], [place] Glucose mass conc 487 mg/dL High 70-100 [facility] Comment on above: Performed By: #### 1 0070, 56815, 44405 ####[facility] [place] [address], [place] Glucose mass conc 132 mg/dL High 70-100 [facility] Comment on above: Performed By: #### 1 0070, 35339, 79111 ####[facility] [place] [address], [place] Glucose mass conc 89 mg/dL Normal 70-100 [facility] Comment on above: Performed By: #### 1 0070, 90233, 44754 ####[facility] [place] [address], [place] Glucose mass conc 125 mg/dL High 70-100 [facility] Comment on above: Performed By: #### 1 0070, 30680, 89786 ####[facility] [facility] [place] [address], [facility] BASIC METABOLIC PANELon 08-1 Calcium 7.9 mg/dL Low 8.6-10.3 [facility] Comment on above: Performed By: #### 5 0608 ####[facility] [place] [address], [place] Chloride 96 mmol/L Low 98-107 [facility] Comment on above: Performed By: #### 5 0608 ####[facility] [place] [address], [place] CO2 30 mmol/L Normal 21-31 [facility] Comment on above: Performed By: #### 5 0608 ####[facility] [facility] [place] [address], [facility] Creatinine 0.60 mg/dL Normal 0.60-1.20 [facility] Comment on above: Performed By: #### 5 0608 ####[facility] [facility] [place] [address], [facility] eGFR (black) mL/min/{1.73_m2} Normal >60 [facility] Comment on above: Performed By: #### 5 0608 ####[place] [address] [facility] [place] [address], [facility] eGFR (non-black) mL/min/{1.73_m2} Normal >60 Th e [facility] Comment on above: Performed By: #### 5 0608 ####[address] [place] [address], [facility] Glucose mass conc 89 mg/dL Normal 70-100 [facility] Comment on above: Performed By: #### 5 0608 ####[place] [address] [facility] [place] [address], [facility] Potassium molar conc 3.2 mmol/L Low 3.5-5.1 [facility] Comment on above: Performed By: #### 5 0608 ####[place] [address] [facility].[address] Sodium 132 mmol/L Low 136-145 [facility] Comment on above: Performed By: #### 5 0608 ####[place] [address] [facility] [place] [address], [facility] Urea nitrogen 11 mg/dL Normal 7-25 [facility] Comment on above: Performed By: #### 5 0608 ####[facility] [place] [address], [facility] CBC W/DIFFon 10-09-2016 Basophils Auto #/vol (Bld) 0.3 % Normal 0.0-2.0 [facility] Comment on above: Performed By: #### 5 0608 ####[facility] [place] [address], [facility] Eosinophils/100 leukocytes 1.4 % Normal 0.0-5.0 [facility] Comment on above: Performed By: #### 5 0608 ####[facility] [facility].[address] Erythrocyte distribution width Auto Ratio (RBC) 13.7 % Normal 11.5-16.9 [facility] Comment on above: Performed By: #### 5 0608 ####[facility] [facility].[address] Erythrocytes (RBC) 3.53 mill/mm3 Normal 3.50-5.50 [facility] Comment on above: Performed By: #### 5 0608 ####[facility] [facility].[address] Hematocrit (HCT) 29.3 % Low 36.0-48.0 [facility] Comment on above: Performed By: #### 5 0608 ####[facility] [facility].[address] Hemoglobin mass conc (Bld) 10.0 g/dL Low 12.0-15.0 [facility] Comment on above: Performed By: #### 5 0608 ####[facility] Lymphocytes/100 leukocytes 29.8 % Normal 20.0-40.0 [facility] Comment on above: Performed By: #### 5 0608 ####[facility] [facility].[address] MCH 28.3 pg Normal 24.0-32.0 [facility] Comment on above: Performed By: #### 5 0608 ####[facility] [facility].[address] MCHC mass conc (RBC) 34.1 g/dL Normal 32.0-36.0 [facility] Comment on above: Performed By: #### 5 0608 ####[facility] [facility] [place] [address], [facility] MCV 83.1 fL Normal 80.0-100.0 [facility] Comment on above: Performed By: #### 5 0608 ####[facility] [facility] [place] [address], [facility] METHOD Normal [facility] Comment on above: Result Comment: Auto mated differential performedNormal RBC Morphology Performed By: #### 5 0608 ####[place] [address] MONOS 8.2 % High 2-8 [facility] Comment on above: Performed By: #### 5 0608 ####[facility] [facility].[address] Neutrophils/100 leukocytes 60.3 % Normal 50-70 [facility] Comment on above: Performed By: #### 5 0608 ####[facility] [facility].[address] PLAT CNT 297 Thou/mm3 Normal 100-400 [facility] Comment on above: Performed By: #### 5 0608 ####[facility] [facility].[address] WBC (Leukocytes) 5.2 Thou/mm3 Normal 4.0-10.0 [facility] Comment on above: Performed By: #### 5 0608 ####[facility] [facility].[address] ABDOMEN AND PELVIS WO CON TRASTon 10-09-2016 CT ABDOMEN AND PELVIS WO CONTRAST [facility]ef[facility] [place] [address] Patient Name: FEMI FRANKS : 1970Sex: FAge: Race: WhiteMRN: [id number]. Location: EMERPatient Status: EVisit #: [id number] Date: 10/09/2016 1:30:00 PMCompleted Date: 10/09/2016 04:35 PMRequesting Provider: MARGA VEGA Attending Provider: MARGA VEGA Report Copy To: Signs & Symptoms: Abdominal Pain(specify)History: Patient history not availableComments: Other, for follow up on wound per Dr. Silvestre, Please use ORAL CONTRASTExam: CT ABDOMEN AND PELVIS WO CONTRASTAccession #: [id number] CT ABDOMEN AND PELVIS WO CONTRAST 10/09/2016 [...] rectum. Electronically signed by:Helen Dover. Transcribed by: [email or web address], User Resident: Electronically Signed by: HELEN DOVER @ 10/09/2016 04:56 PM Normal [facility] Comment on above: Order Comment: No: D o not add to previous draw POC GLUCOSE EDon 10-09-2016 Glucose mass conc 82 mg/dL Normal 70-100 [facility] Comment on above: Performed By: #### 1 0070, 97397, 66213 ####[facility] [facility] [place] [address], [facility] Glucose mass conc 119 mg/dL High 70-100 [facility] Comment on above: Performed By: #### 5 0608 ####[facility] [facility] [place] [address], [facility] Glucose mass conc 47 mg/dL Critically low 70-100 [facility] Comment on above: Order Comment: No: D o not add to previous draw Performed By: #### 1 0070, 17615, 74534 ####[facility] [place] [address], [place] Glucose mass conc 69 mg/dL Low 70-100 [facility] Comment on above: Performed By: #### 5 0608 ####[facility] [place] [address], [place] Glucose mass conc 101 mg/dL High 70-100 [facility] Comment on above: Performed By: #### 5 0608 ####[facility] [place] [address], [facility] Glucose mass conc 40 mg/dL Critically low 70-100 [facility] Comment on above: Order Comment: No: D o not add to previous draw Performed By: #### 1 0070, 96101, 36119 ####[facility] [place] [address], [facility] Glucose mass conc 100 mg/dL Normal 70-100 [facility] Comment on above: Performed By: #### 5 0608 ####[facility] [place] [address], [facility] Glucose mass conc 322 mg/dL High 70-100 [facility] Comment on above: Performed By: #### 5 0608 ####[facility] [place] [address], [facility] POC GLUCOSE LABon 10-09-2016 Glucose mass conc 54 mg/dL Low 70-100 [facility] Comment on above: Performed By: #### 1 0070, 31636, 91392 ####[facility] [place] [address], [place] CBC COMPLETE BLOOD COUNTon 0 10-03-2016 Erythrocyte distribution width Auto Ratio (RBC) 13.8 % Normal 11.5-16.9 [facility] Comment on above: Performed By: #### 5 0608 ####[facility] [place] [address], [facility] Erythrocytes (RBC) 3.78 mill/mm3 Normal 3.50-5.50 [facility] Comment on above: Performed By: #### 5 0608 ####[facility] [place] [address], [place] Hematocrit (HCT) 31.8 % Low 36.0-48.0 [facility] Comment on above: Performed By: #### 5 0608 ####[facility] Hemoglobin mass conc (Bld) 10.6 g/dL Low 12.0-15.0 [facility] Comment on above: Performed By: #### 5 0608 ####[address] MCH 28.2 pg Normal 24.0-32.0 [facility] Comment on above: Performed By: #### 5 0608 ####[place] [address] MCHC mass conc (RBC) 33.5 g/dL Normal 32.0-36.0 [facility] Comment on above: Performed By: #### 5 0608 ####[address] MCV 84.0 fL Normal 80.0-100.0 [facility] Comment on above: Performed By: #### 5 0608 ####[address] PLAT CNT 211 Thou/mm3 Normal 100-400 [facility] Comment on above: Performed By: #### 5 0608 ####[place] [address] WBC (Leukocytes) 7.8 Thou/mm3 Normal 4.0-10.0 [facility] Comment on above: Performed By: #### 5 0608 ####[place] [address] COMP METABOLIC PANELon 10-03 Alanine aminotransferase (ALT) 21 U/L Normal 7-52 [facility] Comment on above: Performed By: #### 5 0608 ####[facility] [place] [address], [facility] Albumin 2.7 g/dL Low 3.5-5.7 [facility] Comment on above: Performed By: #### 5 0608 ####[facility] [place] [address], [place] ALKALINE PHOSPH 181 IU/L High 34-104 [facility] Comment on above: Performed By: #### 5 0608 ####[facility] [place] [address], [facility] Aspartate aminotransferase (AST) 12 U/L Low 13-39 [facility] Comment on above: Performed By: #### 5 0608 ####[facility] [place] [address], [place] Bilirubin (total) 0.4 mg/dL Normal 0.3-1.0 [facility] Comment on above: Performed By: #### 5 0608 ####[facility] [place] [address], [place] Calcium 8.2 mg/dL Low 8.6-10.3 [facility] Comment on above: Performed By: #### 5 0608 ####[facility] [place] [address], [place] Chloride 96 mmol/L Low 98-107 [facility] Comment on above: Performed By: #### 5 0608 ####[facility] [place] [address], [place] CO2 27 mmol/L Normal 21-31 [facility] Comment on above: Performed By: #### 5 0608 ####[facility] [place] [address], [place] Creatinine 0.63 mg/dL Normal 0.60-1.20 [facility] Comment on above: Performed By: #### 5 0608 ####[facility] eGFR (black) mL/min/{1.73_m2} Normal >60 [facility] Comment on above: Performed By: #### 5 0608 ####[facility] [place] [address], [facility] eGFR (non-black) mL/min/{1.73_m2} Normal >60 Th e [facility] Comment on above: Performed By: #### 5 0608 ####[facility] [facility].[address] Glucose mass conc 126 mg/dL High 70-100 [facility] Comment on above: Performed By: #### 5 0608 ####[facility] [facility].[address] Potassium molar conc 4.1 mmol/L Normal 3.5-5.1 [facility] Comment on above: Performed By: #### 5 0608 ####[facility] [facility].[address] Protein 5.6 g/dL Low 6.0-8.3 [facility] Comment on above: Performed By: #### 5 0608 ####[facility] [facility].[address] Sodium 128 mmol/L Low 136-145 [facility] Comment on above: Performed By: #### 5 0608 ####[facility] [facility].[address] Urea nitrogen 20 mg/dL Normal 7-25 [facility] Comment on above: Performed By: #### 5 0608 ####[facility] [facility].[address] *ANAEROBIC CULTUREon 017 *ANAEROBIC CULTURE Clinical Report: (D) Specimen/Source: TISSUE/INTRAOP SPEC Collected: 10/01/2016 12:07 Status: Final Last Updated: 10/06/2016 10:12 (1) #2 Bone ISO (Final) No Anaerobes Isolated 5 Days Normal [facility] Comment on above: Order Comment: #2 Isidoro ne Performed By: #### 8 5499 ####[facility] *TISSUE CULTUREon 10-01-2016 *TISSUE CULTURE Clinical Report: (D) Specimen/Source: TISSUE/INTRAOP SPEC Collected: 10/01/2016 12:07 Status: Final Last Updated: 10/12/2016 13:53 (1) #2 Bone GRAM (Final) Few Polys Many Gram Positive Bacilli Many Gram Negative Bacilli Many Gram Positive Cocci In Clusters ISO (Final) Enterococcus species Identification performed by the [facility] Molecular Department. ISO (Final) Streptococcus anginosus Heavy Growth Results called. Read back by Lesley Kingsley RN (OPSurg) 2:27 p.m. 10/03/16 ISO (Final) Streptococcus massiliensis Identification performed by the [facility] Molecular Department. Result changed by ELVIRA on 10/12/2016 13:53. The previous result was: ISO (Prelim) Gram Positive Cocci Isolated Normal [facility] Comment on above: Order Comment: #2 Isidoro ne Performed By: #### 8 5499 ####[id number] [place] [address], [facility] BACTERIAL ID: 16S rRNA GENE SEQUENCINGon 10-01-2016 16S BACTERIAL ID Enterococcus species Normal [facility] Comment on above: Order Comment: No: D o not add to previous draw Performed By: #### 1 0070, [id number], [id number] ####[facility] [place] [address], [facility] 16S BACTERIAL ID Streptococcus massiliensis Normal [facility] Comment on above: Order Comment: No: D o not add to previous draw Performed By: #### 1 0070, [id number], [id number] ####[facility] [place] [address], [facility] 16S INTERPRETATION see comment Normal [facility] Comment on above: Order Comment: No: D o not add to previous draw Performed By: #### 1 0070, [id number], [id number] ####[facility] [facility].[address] SIGNED BY: Normal [facility] Comment on above: Order Comment: No: D o not add to previous draw Result Comment: Elec tronically signed by: Ángel Watson M.D., Ph.D Rn Gynecology, Department of PathologyINTERPRETATION: Bacterial Sequencing of the 16S rRNA gene from anisolated colony from the patient?s intraoperative tissue culturedemonstrated that the organism is genotypically most closely related toEnterococcus species. This genotypic result is consistent with themicroscopy colony characteristics, and biochemical tests. [facility] accession [id number] for culture results.METHODOLOGY: DNA was extracted from a pure colony of theculture-isolated organism. Polymerase chain reaction (PCR) andsequencing was performed using primers targeting the 16SrRNA gene. Thesequence was then compared to a database of sequences for knownorganisms to identify a match.REFERENCE: 1) Interpretive Criteria for Identification of Bacteria andFungi by DNA Target Sequencing; Approved Guideline. CLSI [id number]. MOISÉS Chavez: Clinical and Laboratory Standards [place]; 2008.This molecular test was developed and its performance validated by [facility]. It has not been approved by theU.S. Food and Drug Administration. This laboratory is certified underthe Clinical Laboratory Improvement Amendments of 1988 (CLIA ?88) asqualified to perform this type of high complexity clinical laboratorytesting. Performed By: #### 1 0070, [id number], [id number] ####[facility] [facility].[address] Result Comment: Elec tronically signed by: Ángel Watson M.D., Ph.D Rn Gynecology, Department of PathologyINTERPRETATION: Bacterial Sequencing of the 16S rRNA gene from anisolated colony from the patient?s intraoperative tissue culturedemonstrated that the organism is genotypically most closely related toStreptococcus massiliensis. This genotypic result is consistent withthe microscopy colony characteristics, and biochemical tests. [facility] accession [id number] for culture results.METHODOLOGY: DNA was extracted from a pure colony of theculture-isolated organism. Polymerase chain reaction (PCR) andsequencing was performed using primers targeting the 16SrRNA gene. Thesequence was then compared to a database of sequences for knownorganisms to identify a match.REFERENCE: 1) Interpretive Criteria for Identification of Bacteria andFungi by DNA Target Sequencing; Approved Guideline. CLSI [id number]. MOISSÉ Chavez: Clinical and Laboratory Standards [place]; 2008.This molecular test was developed and its performance validated by the[facility]. It has not been approved by theU.S. Food and Drug Administration. This laboratory is certified underthe Clinical Laboratory Improvement Amendments of 1988 (CLIA ?88) asqualified to perform this type of high complexity clinical laboratorytesting. Operative Reporton 7 Operative Report MR#: [id number] [facility] Pt. Name: Femi Franks Room #: 0C Discharge Date: Birthdate: 1970 OPERATIVE REPORTDATE OF SURGERY: 10/01/2016SURGEON: Tiffanie Silvestre M.D.SURGEON: Tiffanie Silvestre M.D.HOSPICE ADMITTING CLERK: Paul Schwartz M.D.PREOPERATIVE DIAGNOSIS: Left upper quadrant [...] 10/01/2016/12:44 P/Tiffanie Silvestre M.D.Date Trans: 10/01/2016 09:27 P/mmoDN_[id number] : Jack Roque D.O. [address] [facility] [address] Normal [facility] POC GLUCOSE LABon 10-01-2016 Glucose mass conc 120 mg/dL High 70-100 [facility] Comment on above: Performed By: #### 8 5499 ####[facility] [facility] [place] [address], [facility] Glucose mass conc 100 mg/dL Normal 70-100 [facility] Comment on above: Performed By: #### 8 5499 ####[facility] [facility] [place] [address], [facility] Glucose mass conc 86 mg/dL Normal 70-100 [facility] Comment on above: Performed By: #### 8 5499 ####[facility] [facility].[place], [place] [address] Consultationon 09-20-2016 Consultation MR#: [id number] Pt. Name: Femi Franks Date of Service: 08/26/2016 Room #: SIC [id number] Birthdate: 1970 Referring Physician: CONSULTATIONSURGICAL CRITICAL CARE [...] Dict: 08/29/2016/10:52 A/Veronica Ch Trans: 09/20/2016 02:33 A/Marcy_JN:[id number]: Jack Roque D.O. [address] [facility]. [facility] [address] [place] [facility] Discharge Summaryon 09-20-19 17 Discharge Summary MR#: [id number] Admitted: 08/24/2016 [...] AND DISPOSITION: The patient [facility]dis[facility] in stable and good condition.DISCHARGE INSTRUCTIONS:1. [...] Dict: 09/06/2016/02:03 P/Veronica Petit Trans: 09/19/2016 04:32 A/mmoDN_JN:[id number]: Jack Roque D.O. [facility]. [facility] [address] [place] [facility] Discharge Summaryon 09-14-19 Discharge Summary MR#: [id number] [facility]: [facility]emi [facility]anks Admitted: 08/24/2016 [...] Date Dict: 09/03/2016//Veronica Jacobson Trans: 09/13/2016 04:05 P/Enma_JN:[id number]: Jack Roque D.O. [address] [facility] [address] Normal [facility] Operative Reporton 7 Operative Report MR#: [id number] Room #: SIC [id number] Discharge 08/29/2016 Date: Birthdate: 1970 OPERATIVE REPORTDATE [...] incisions with an 0 Vicryl in a [id number] fashion and then theskin was closed with [...] by:Tiffanie Silvestre M.D. 09/02/2016 09:16 P Tiffanie Silvestre M.D. I was present for the entire procedure. Date Dict: 08/29/2016//James Pierce M.D.Date Trans: 09/01/2016 06:13 Su/Rosanna_JN:[id number]/cc: Jack Roque D.O. [address] [place], [place] [id number] Normal [facility] BASIC METABOLIC PANELon 07-0 Calcium 8.4 mg/dL Low 8.6-10.3 [facility] Comment on above: Order Comment: #2 Isidoro ne biopsy. Performed By: #### 3 0338 ####[facility] [place] [address], [facility] Chloride 107 mmol/L Normal 98-107 [facility] Comment on above: Order Comment: #2 Isidoro ne biopsy. Performed By: #### 3 0338 ####[facility] [place] [address], [facility] CO2 26 mmol/L Normal 21-31 [facility] Comment on above: Order Comment: #2 Isidoro ne biopsy. Performed By: #### 3 0338 ####[facility] [place] [address], [facility] Creatinine 0.63 mg/dL Normal 0.60-1.20 [facility] Comment on above: Order Comment: #2 Isidoro ne biopsy. Performed By: #### 3 0338 ####[facility] eGFR (black) mL/min/{1.73_m2} Normal >60 [facility] Comment on above: Order Comment: #2 Isidoro ne biopsy. Performed By: #### 3 0338 ####[facility] eGFR (non-black) mL/min/{1.73_m2} Normal >60 [facility] Comment on above: Order Comment: #2 Isidoro ne biopsy. Performed By: #### 3 0338 ####[facility] [place] [address], [facility] Glucose mass conc 53 mg/dL Low 70-100 [facility] Comment on above: Order Comment: #2 Isidoro ne biopsy. Performed By: #### 3 0338 ####[facility] [facility].[address] Potassium molar conc 3.8 mmol/L Normal 3.5-5.1 [facility] Comment on above: Order Comment: #2 Isidoro ne biopsy. Performed By: #### 3 0338 ####[facility] Sodium 138 mmol/L Normal 136-145 [facility] Comment on above: Order Comment: #2 Isidoro ne biopsy. Performed By: #### 3 0338 ####[facility] [place] [address], [facility] Urea nitrogen 4 mg/dL Low 7-25 [facility] Comment on above: Order Comment: #2 Isidoro ne biopsy. Performed By: #### 3 0338 ####[facility] CBC COMPLETE BLOOD COUNTon 0 08-29-2016 Erythrocyte distribution width Auto Ratio (RBC) 13.0 % Normal 11.5-16.9 [facility] Comment on above: Order Comment: #2 Isidoro ne biopsy. Performed By: #### 3 0338 ####[address] Erythrocytes (RBC) 3.82 mill/mm3 Normal 3.50-5.50 [facility] Comment on above: Order Comment: #2 Isidoro ne biopsy. Performed By: #### 3 0338 ####[address] Hematocrit (HCT) 32.2 % Low 36.0-48.0 [facility] Comment on above: Order Comment: #2 Isidoro ne biopsy. Performed By: #### 3 0338 ####[id number] Hemoglobin mass conc (Bld) 10.8 g/dL Low 12.0-15.0 [facility] Comment on above: Order Comment: #2 Isidoro ne biopsy. Performed By: #### 3 0338 ####[id number] MCH 28.2 pg Normal 24.0-32.0 [facility] Comment on above: Order Comment: #2 Isidoro ne biopsy. Performed By: #### 3 0338 ####[facility] MCHC mass conc (RBC) 33.5 g/dL Normal 32.0-36.0 [facility] Comment on above: Order Comment: #2 Isidoro ne biopsy. Performed By: #### 3 0338 ####[address] MCV 84.2 fL Normal 80.0-100.0 [facility] Comment on above: Order Comment: #2 Isidoro ne biopsy. Performed By: #### 3 0338 ####[facility] [place] [address], [facility] PLAT CNT 232 Thou/mm3 Normal 100-400 [facility] Comment on above: Order Comment: #2 Isidoro ne biopsy. Performed By: #### 3 0338 ####[facility] [place] [address], [facility] WBC (Leukocytes) 3.8 Thou/mm3 Low 4.0-10.0 [facility] Comment on above: Order Comment: #2 Isidoro ne biopsy. Performed By: #### 3 0338 ####[facility] [place] [address], [facility] MAGNESIUM BLOODon 08-29-2016 Magnesium 1.9 mg/dL Normal 1.9-2.7 [facility] Comment on above: Order Comment: #2 Isidoro ne biopsy. Performed By: #### 3 0338 ####[facility] [place] [address], [facility] POC GLUCOSE LABon 08-29-2016 Glucose mass conc 232 mg/dL High 70-100 [facility] Comment on above: Performed By: #### 8 5499 ####[facility] [place] [address], [facility] Glucose mass conc 223 mg/dL High 70-100 [facility] Comment on above: Performed By: #### 8 5499 ####[facility] [place] [address], [facility] Glucose mass conc 232 mg/dL High 70-100 [facility] Comment on above: Performed By: #### 3 0338 ####[facility] [place] [address], [facility] Glucose mass conc 90 mg/dL Normal 70-100 [facility] Comment on above: Performed By: #### 3 0338 ####[facility] BASIC METABOLIC PANELon 07-0 Calcium 8.4 mg/dL Low 8.6-10.3 [facility] Comment on above: Order Comment: #2 Isidoro ne biopsy. Performed By: #### 3 0338 ####[facility] [place] [address], [facility] Chloride 102 mmol/L Normal 98-107 [facility] Comment on above: Order Comment: #2 Isidoro ne biopsy. Performed By: #### 3 0338 ####[facility] [place] [address], [facility] CO2 24 mmol/L Normal 21-31 [facility] Comment on above: Order Comment: #2 Isidoro ne biopsy. Performed By: #### 3 0338 ####[facility] Creatinine 0.62 mg/dL Normal 0.60-1.20 [facility] Comment on above: Order Comment: #2 Isidoro ne biopsy. Performed By: #### 3 0338 ####[facility] eGFR (black) mL/min/{1.73_m2} Normal >60 [facility] Comment on above: Order Comment: #2 Isidoro ne biopsy. Performed By: #### 3 0338 ####[facility] [place] [address], [facility] eGFR (non-black) mL/min/{1.73_m2} Normal >60 Th [facility] Comment on above: Order Comment: #2 Isidoro ne biopsy. Performed By: #### 3 0338 ####[facility] [place] [address], [facility] Glucose mass conc 145 mg/dL High 70-100 [facility] Comment on above: Order Comment: #2 Isidoro ne biopsy. Performed By: #### 3 0338 ####[facility] Potassium molar conc 3.3 mmol/L Low 3.5-5.1 [facility] Comment on above: Order Comment: #2 Isidoro ne biopsy. Performed By: #### 3 0338 ####[facility] Sodium 135 mmol/L Low 136-145 [facility] Comment on above: Order Comment: #2 Isidoro ne biopsy. Performed By: #### 3 0338 ####[facility] Urea nitrogen 5 mg/dL Low 7-25 [facility] Comment on above: Order Comment: #2 Isidoro ne biopsy. Performed By: #### 3 0338 ####[facility] [facility].[address] CBC COMPLETE BLOOD COUNTon 0 - Erythrocyte distribution width Auto Ratio (RBC) 13.0 % Normal 11.5-16.9 [facility] Comment on above: Order Comment: No: D o not add to previous draw Performed By: #### 8 5499 ####[facility] [facility].[address] Erythrocytes (RBC) 3.77 mill/mm3 Normal 3.50-5.50 [facility] Comment on above: Order Comment: No: D o not add to previous draw Performed By: #### 8 5499 ####[facility] [facility].[address] Hematocrit (HCT) 32.0 % Low 36.0-48.0 [facility] Comment on above: Order Comment: No: D o not add to previous draw Performed By: #### 8 5499 ####[facility] [place] [address], [facility] Hemoglobin mass conc (Bld) 10.8 g/dL Low 12.0-15.0 [facility] Comment on above: Order Comment: No: D o not add to previous draw Performed By: #### 8 5499 ####[facility] [place] [address], [facility] MCH 28.5 pg Normal 24.0-32.0 [facility] Comment on above: Order Comment: No: D o not add to previous draw Performed By: #### 8 5499 ####[facility] [place] [address], [facility] MCHC mass conc (RBC) 33.5 g/dL Normal 32.0-36.0 [facility] Comment on above: Order Comment: No: D o not add to previous draw Performed By: #### 8 5499 ####[facility] [place] [address], [facility] MCV 85.1 fL Normal 80.0-100.0 [facility] Comment on above: Order Comment: No: D o not add to previous draw Performed By: #### 8 5499 ####[facility] [place] [address], [facility] PLAT CNT 223 Thou/mm3 Normal 100-400 [facility] Comment on above: Order Comment: No: D o not add to previous draw Performed By: #### 8 5499 ####[facility] [place] [address], [facility] WBC (Leukocytes) 4.4 Thou/mm3 Normal 4.0-10.0 [facility] Comment on above: Order Comment: No: D o not add to previous draw Performed By: #### 8 5499 ####[facility] [place] [address], [facility] MAGNESIUM BLOODon 08-28-2016 Magnesium 1.8 mg/dL Low 1.9-2.7 [facility] Comment on above: Order Comment: No: D o not add to previous draw Performed By: #### 8 5499 ####[facility] [place] [address], [facility] PHOSPHORUS BLOODon 7 Phosphate 3.5 mg/dL Normal 2.5-5.0 [facility] Comment on above: Order Comment: #2 Isidoro ne biopsy. Performed By: #### 3 0338 ####[facility] [place] [address], [facility] POC GLUCOSE LABon 08-28-2016 Glucose mass conc 406 mg/dL High 70-100 [facility] Comment on above: Performed By: #### 3 0338 ####[facility] [place] [address], [facility] Glucose mass conc 232 mg/dL High 70-100 [facility] Comment on above: Performed By: #### 3 0338 ####[facility] [place] [address], [facility] Glucose mass conc 182 mg/dL High 70-100 [facility] Comment on above: Performed By: #### 3 0338 ####[facility] [place] [address], [facility] Glucose mass conc 134 mg/dL High 70-100 [facility] Comment on above: Performed By: #### 8 5499 ####[facility] [place] [address], [facility] BASIC METABOLIC PANELon Calcium 8.7 mg/dL Normal 8.6-10.3 [facility] Comment on above: Order Comment: No: D o not add to previous draw Performed By: #### 8 5499 ####[facility] [place] [address], [facility] Chloride 106 mmol/L Normal 98-107 [facility] Comment on above: Order Comment: No: D o not add to previous draw Performed By: #### 8 5499 ####[facility] [place] [address], [facility] CO2 27 mmol/L Normal 21-31 [facility] Comment on above: Order Comment: No: D o not add to previous draw Performed By: #### 8 5499 ####[facility] [place] [address], [facility] Creatinine 0.64 mg/dL Normal 0.60-1.20 [facility] Comment on above: Order Comment: No: D o not add to previous draw Performed By: #### 8 5499 ####[facility] [facility] [place] [address], [facility] eGFR (black) mL/min/{1.73_m2} Normal >60 [facility] Comment on above: Order Comment: No: D o not add to previous draw Performed By: #### 8 5499 ####[facility] [place] [address], [facility] eGFR (non-black) mL/min/{1.73_m2} Normal >60 Th e [facility] Comment on above: Order Comment: No: D o not add to previous draw Performed By: #### 8 5499 ####[facility] [place] [address], [facility] Glucose mass conc 51 mg/dL Low 70-100 [facility] Comment on above: Order Comment: No: D o not add to previous draw Performed By: #### 8 5499 ####[facility] [place] [address], [facility] Potassium molar conc 3.9 mmol/L Normal 3.5-5.1 [facility] Comment on above: Order Comment: No: D o not add to previous draw Performed By: #### 8 5499 ####[facility] Sodium 140 mmol/L Normal 136-145 [facility] Comment on above: Order Comment: No: D o not add to previous draw Performed By: #### 8 5499 ####[facility] [facility] [place] [address], [facility] Urea nitrogen 9 mg/dL Normal 7-25 [facility] Comment on above: Order Comment: No: D o not add to previous draw Performed By: #### 8 5499 ####[facility] [facility].[address] CBC COMPLETE BLOOD COUNTon 0 08-27-2016 Erythrocyte distribution width Auto Ratio (RBC) 12.9 % Normal 11.5-16.9 [facility] Comment on above: Order Comment: No: D o not add to previous draw Performed By: #### 8 5499 ####[facility] [facility].[address] Erythrocytes (RBC) 3.67 mill/mm3 Normal 3.50-5.50 [facility] Comment on above: Order Comment: No: D o not add to previous draw Performed By: #### 8 5499 ####[facility] [facility].[address] Hematocrit (HCT) 31.4 % Low 36.0-48.0 [facility] Comment on above: Order Comment: No: D o not add to previous draw Performed By: #### 8 5499 ####[facility] [facility] [place] [address], [facility] Hemoglobin mass conc (Bld) 10.4 g/dL Low 12.0-15.0 [facility] [facility] Comment on above: Order Comment: No: D o not add to previous draw Performed By: #### 8 [id number] ####[facility] MCH 28.5 pg Normal 24.0-32.0 [facility] Comment on above: Order Comment: No: D o not add to previous draw Performed By: #### 8 5499 ####[facility] [facility].[address] MCHC mass conc (RBC) 33.3 g/dL Normal 32.0-36.0 [facility] Comment on above: Order Comment: No: D o not add to previous draw Performed By: #### 8 5499 ####[facility]3000 [facility].[address] MCV 85.7 fL Normal 80.0-100.0 [facility] Comment on above: Order Comment: No: D o not add to previous draw Performed By: #### 8 5499 ####[facility]3000 [facility].[address] PLAT CNT 217 Thou/mm3 Normal 100-400 [facility] Comment on above: Order Comment: No: D o not add to previous draw Performed By: #### 8 [id number] ####[facility] [facility].[address] WBC (Leukocytes) 5.1 Thou/mm3 Normal 4.0-10.0 [facility] Comment on above: Order Comment: No: D o not add to previous draw Performed By: #### 8 [id number] ####[facility] [facility] [place] [address], [facility] MAGNESIUM BLOODon 08-27-2016 Magnesium 1.9 mg/dL Normal 1.9-2.7 [facility] Comment on above: Order Comment: No: D o not add to previous draw Performed By: #### 8 5499 ####[facility] [facility] [place] [address], [facility] PHOSPHORUS BLOODon 07-03-201 7 Phosphate 4.4 mg/dL Normal 2.5-5.0 [facility] Comment on above: Order Comment: No: D o not add to previous draw Performed By: #### 8 [id number] ####[facility] [place] [address], [place] POC GLUCOSE LABon 08-27-2016 Glucose mass conc 93 mg/dL Normal 70-100 [facility] Comment on above: Performed By: #### 8 5499 ####[facility] [place] [address], [place] Glucose mass conc 126 mg/dL High 70-100 [facility] Comment on above: Performed By: #### 8 5499 ####[facility] [place] [address], [place] Glucose mass conc 107 mg/dL High 70-100 [facility] Comment on above: Performed By: #### 8 5499 ####[facility] [facility] [place] [address], [place] Glucose mass conc 98 mg/dL Normal 70-100 [facility] Comment on above: Performed By: #### 8 5499 ####[facility] [place] [address], [place] Glucose mass conc 81 mg/dL Normal 70-100 [facility] Comment on above: Performed By: #### 8 5499 ####[facility] [place] [address], [place] Glucose mass conc 43 mg/dL Critically low 70-100 [facility] Comment on above: Order Comment: NOTE: Critical Value -- Result verified in duplicate Performed By: #### 8 5499 ####[facility] [place] [address], [place] BASIC METABOLIC PANELon Calcium 8.4 mg/dL Low 8.6-10.3 [facility] Comment on above: Order Comment: No: D o not add to previous draw Performed By: #### 8 5499 ####[facility] [place] [address], [facility] Chloride 102 mmol/L Normal 98-107 [facility] Comment on above: Order Comment: No: D o not add to previous draw Performed By: #### 8 5499 ####[facility] [place] [address], [facility] CO2 26 mmol/L Normal 21-31 [facility] Comment on above: Order Comment: No: D o not add to previous draw Performed By: #### 8 5499 ####[facility] [place] [address], [facility] Creatinine 0.61 mg/dL Normal 0.60-1.20 [facility] Comment on above: Order Comment: No: D o not add to previous draw Performed By: #### 8 5499 ####[facility] [place] [address], [facility] eGFR (black) mL/min/{1.73_m2} Normal >60 [facility] Comment on above: Order Comment: No: D o not add to previous draw Performed By: #### 8 5499 ####[facility] [place] [address], [facility] eGFR (non-black) mL/min/{1.73_m2} Normal >60 Th e [facility] Comment on above: Order Comment: No: D o not add to previous draw Performed By: #### 8 5499 ####[facility] [id number], [facility] Glucose mass conc 101 mg/dL High 70-100 [facility] Comment on above: Order Comment: No: D o not add to previous draw Performed By: #### 8 5499 ####[facility] [place] [address], [facility] Potassium molar conc 4.8 mmol/L Normal 3.5-5.1 [facility] Comment on above: Order Comment: No: D o not add to previous draw Performed By: #### 8 5499 ####[facility] [place] [address], [facility] Sodium 133 mmol/L Low 136-145 [facility] Comment on above: Order Comment: No: D o not add to previous draw Performed By: #### 8 5499 ####[facility] [place] [address], [facility] Urea nitrogen 13 mg/dL Normal 7-25 [facility] Comment on above: Order Comment: No: D o not add to previous draw Performed By: #### 8 5499 ####[facility] [place] [address], [facility] Calcium 8.1 mg/dL Low 8.6-10.3 [facility] Comment on above: Order Comment: No: D o not add to previous draw Performed By: #### 8 5499 ####[facility] [place] [address], [facility] Chloride 100 mmol/L Normal 98-107 [facility] Comment on above: Order Comment: No: D o not add to previous draw Performed By: #### 8 5499 ####[facility] [place] [address], [facility] CO2 27 mmol/L Normal 21-31 [facility] Comment on above: Order Comment: No: D o not add to previous draw Performed By: #### 8 5499 ####[facility] [place] [address], [facility] Creatinine 0.64 mg/dL Normal 0.60-1.20 [facility] Comment on above: Order Comment: No: D o not add to previous draw Performed By: #### 8 5499 ####[facility] [place] [address], [facility] eGFR (black) mL/min/{1.73_m2} Normal >60 [facility] Comment on above: Order Comment: No: D o not add to previous draw Performed By: #### 8 5499 ####[facility] [place] [address], [facility] eGFR (non-black) mL/min/{1.73_m2} Normal >60 Th e [facility] Comment on above: Order Comment: No: D o not add to previous draw Performed By: #### 8 5499 ####[facility] [place] [address], [facility] Glucose mass conc 120 mg/dL High 70-100 [facility] Comment on above: Order Comment: No: D o not add to previous draw Performed By: #### 8 5499 ####[facility] [place] [address], [facility] Potassium molar conc 3.5 mmol/L Normal 3.5-5.1 [facility] Comment on above: Order Comment: No: D o not add to previous draw Performed By: #### 8 5499 ####[facility] [place] [address], [facility] Sodium 131 mmol/L Low 136-145 [facility] Comment on above: Order Comment: No: D o not add to previous draw Performed By: #### 8 5499 ####[facility] [place] [address], [facility] Urea nitrogen 13 mg/dL Normal 7-25 [facility] Comment on above: Order Comment: No: D o not add to previous draw Performed By: #### 8 5499 ####[facility] [place] [address], [place] CBC COMPLETE BLOOD COUNTon 0 08-26-2016 Erythrocyte distribution width Auto Ratio (RBC) 12.9 % Normal 11.5-16.9 [facility] Comment on above: Order Comment: No: D o not add to previous draw Performed By: #### 8 5499 ####[facility] Erythrocytes (RBC) 3.65 mill/mm3 Normal 3.50-5.50 [facility] Comment on above: Order Comment: No: D o not add to previous draw Performed By: #### 8 5499 ####[facility]3000 [facility].[address] Hematocrit (HCT) 31.2 % Low 36.0-48.0 [facility] Comment on above: Order Comment: No: D o not add to previous draw Performed By: #### 8 5499 ####[facility] Hemoglobin mass conc (Bld) 10.4 g/dL Low 12.0-15.0 [facility] Comment on above: Order Comment: No: D o not add to previous draw Performed By: #### 8 5499 ####[facility]3000 [facility].[address] MCH 28.6 pg Normal 24.0-32.0 [facility] Comment on above: Order Comment: No: D o not add to previous draw Performed By: #### 8 5499 ####[facility] [facility] [place] [address], [facility] MCHC mass conc (RBC) 33.4 g/dL Normal 32.0-36.0 [facility] Comment on above: Order Comment: No: D o not add to previous draw Performed By: #### 8 5499 ####[facility] [place] [address], [facility] MCV 85.6 fL Normal 80.0-100.0 [facility] Comment on above: Order Comment: No: D o not add to previous draw Performed By: #### 8 5499 ####[facility] [place] [address], [facility] PLAT CNT 217 Thou/mm3 Normal 100-400 [facility] Comment on above: Order Comment: No: D o not add to previous draw Performed By: #### 8 5499 ####[facility] [place] [address], [facility] WBC (Leukocytes) 6.1 Thou/mm3 Normal 4.0-10.0 [facility] Comment on above: Order Comment: No: D o not add to previous draw Performed By: #### 8 5499 ####[facility] [place] [address], [facility] Erythrocyte distribution width Auto Ratio (RBC) 13.2 % Normal 11.5-16.9 [facility] Comment on above: Order Comment: No: D o not add to previous draw Performed By: #### 8 5499 ####[facility] [facility] [place] [address], [facility] Erythrocytes (RBC) 3.03 mill/mm3 Low 3.50-5.50 [facility] Comment on above: Order Comment: No: D o not add to previous draw Performed By: #### 8 5499 ####[facility] [facility] [place] [address], [facility] Hematocrit (HCT) 25.8 % Low 36.0-48.0 [facility] Comment on above: Order Comment: No: D o not add to previous draw Performed By: #### 8 5499 ####[facility] [place] [address], [facility] Hemoglobin mass conc (Bld) 8.6 g/dL Low 12.0-15.0 [facility] Comment on above: Order Comment: No: D o not add to previous draw Performed By: #### 8 5499 ####[facility]3000 [facility].[address] MCH 28.3 pg Normal 24.0-32.0 [facility] Comment on above: Order Comment: No: D o not add to previous draw Performed By: #### 8 5499 ####[facility] [facility] [place] [address], [facility] MCHC mass conc (RBC) 33.2 g/dL Normal 32.0-36.0 [facility] Comment on above: Order Comment: No: D o not add to previous draw Performed By: #### 8 5499 ####[place] [address] [facility] [place] [address], [facility] MCV 85.1 fL Normal 80.0-100.0 [facility] Comment on above: Order Comment: No: D o not add to previous draw Performed By: #### 8 5499 ####[address] PLAT CNT 185 Thou/mm3 Normal 100-400 [facility] Comment on above: Order Comment: No: D o not add to previous draw Performed By: #### 8 5499 ####[place] [address] [facility] [place] [address], [facility] WBC (Leukocytes) 5.3 Thou/mm3 Normal 4.0-10.0 [facility] Comment on above: Order Comment: No: D o not add to previous draw Performed By: #### 8 5499 ####[address], [place] [address] [place] [address] CT ABDOMEN AND PELVIS W CONT [facility] 08-26-2016 CT ABDOMEN AND PELVIS W CONTRAST [facility] [id number] [place] [id number] Patient Name: FEMI FRANKS : 1970Sex: FAge: Race: WhiteMRN: [id number]. Location: [id number] Status: IVisit #: [id number] Date: 08/25/2016 11:40:00 PMCompleted Date: 08/26/2016 12:35 AMRequesting Provider: JAMES PIERCE Attending Provider: TIFFANIE SILVESTRE Report Copy To: Signs & Symptoms: Abdominal Pain(specify)History: Patient history not availableComments: Other, POD#2 takedown of jejunal cutaneous fistula. look for leakExam: CT ABDOMEN AND PELVIS W CONTRASTAccession #: [id number] CT ABDOMEN AND PELVIS W CONTRAST 08/26/2016 [...] findings. Electronically signed by:Lourdes Pinedo. Transcribed by: [email or web address], User Resident: ROSS UGARTEElectronically Signed by: LOURDES PINEDO @ 08/26/2016 07:15 AMI personally read this/these film(s) with this resident Normal [facility] Comment on above: Order Comment: Other , POD#2 takedown of jejunal cutaneous fistula. look for leak CT BRAIN WO CONTRASTon 08-26 CT BRAIN WO CONTRAST [facility] [address] [place] [address] Patient Name: FEMI FRANKS : 1970Sex: FAge: Race: WhiteMRN: [id number]. Location: [id number] Status: IVisit #: [id number] Date: 08/25/2016 11:20:00 PMCompleted Date: 08/26/2016 12:34 AMRequesting Provider: JUSTIN VILLAVICENCIO Attending Provider: TIFFANIE SILVESTRE Report Copy To: Signs & Symptoms: HeadacheHistory: Patient history not availableComments: R/O CVAExam: CT BRAIN WO CONTRASTAccession #: [id number] CT BRAIN WO CONTRAST 08/26/2016 12:34 AM [...] findings. Electronically signed by:Lourdes Pinedo. Transcribed by: [email or web address], User Resident: ROSS UGARTEElectronically Signed by: LOURDES PINEDO @ 08/26/2016 07:08 AMI personally read this/these film(s) with this resident Normal [facility] Comment on above: Order Comment: R/O C [facility] MAGNESIUM BLOODon 08-26-2016 Magnesium 2.7 mg/dL Normal 1.9-2.7 [facility] Comment on above: Order Comment: No: D o not add to previous draw Performed By: #### 8 5499 ####[facility] [place] [address], [facility] Magnesium 3.0 mg/dL High 1.9-2.7 [facility] Comment on above: Order Comment: No: D o not add to previous draw Performed By: #### 8 5499 ####[facility] [place] [address], [facility] PHOSPHORUS BLOODon 7 Phosphate 3.5 mg/dL Normal 2.5-5.0 [facility] Comment on above: Order Comment: No: D o not add to previous draw Performed By: #### 8 5499 ####[facility] [place] [address], [place] POC GLUCOSE LABon 08-26-2016 Glucose mass conc 87 mg/dL Normal 70-100 [facility] Comment on above: Performed By: #### 8 5499 ####[facility] [place] [address], [place] Glucose mass conc 27 mg/dL Critically low 70-100 [facility] Comment on above: Order Comment: NOTE: Critical Value -- Result verified in duplicate Performed By: #### 8 5499 ####[facility] [place] [address], [place] Glucose mass conc 67 mg/dL Low 70-100 [facility] Comment on above: Performed By: #### 8 5499 ####[facility] [place] [address], [facility] Glucose mass conc 126 mg/dL High 70-100 [facility] Comment on above: Performed By: #### 8 5499 ####[facility] [place] [address], [facility] TROPONIN-Ion 08-26-2016 Troponin I.cardiac mass conc 0.00 ng/mL Normal 0.00-0.04 [facility] Comment on above: Result Comment: REFE RENCE RANGES: 0.00 - 0.14 ng/ml NEGATIVE 0.15 - 0.25 ng/ml INDETERMINATE > 0.25 ng/ml INDICATIVE OF AN M.I. Performed By: #### 8 5499 ####[facility] [facility] [place] [address], [facility] BASIC METABOLIC PANELon 07-0 Calcium 8.1 mg/dL Low 8.6-10.3 [facility] Comment on above: Order Comment: No: D o not add to previous draw Performed By: #### 1 0070, [id number], 84523 ####[facility] [facility] [place] [address], [facility] Chloride 102 mmol/L Normal 98-107 [facility] Comment on above: Order Comment: No: D o not add to previous draw Performed By: #### 1 0070, 17176, 77880 ####[facility] [place] [address], [facility] CO2 26 mmol/L Normal 21-31 [facility] Comment on above: Order Comment: No: D o not add to previous draw Performed By: #### 1 0070, 27639, 82903 ####[facility] [place] [address], [facility] Creatinine 0.67 mg/dL Normal 0.60-1.20 [facility] Comment on above: Order Comment: No: D o not add to previous draw Performed By: #### 1 0070, 26853, 35731 ####[facility] [place] [address], [facility] eGFR (black) mL/min/{1.73_m2} Normal >60 [facility] Comment on above: Order Comment: No: D o not add to previous draw Performed By: #### 1 0070, 34410, 15837 ####[facility] [place] [address], [facility] eGFR (non-black) mL/min/{1.73_m2} Normal >60 Th e [facility] Comment on above: Order Comment: No: D o not add to previous draw Performed By: #### 1 0070, 36985, 67064 ####[facility] [place] [address], [facility] Glucose mass conc 305 mg/dL High 70-100 [facility] Comment on above: Order Comment: No: D o not add to previous draw Performed By: #### 1 0070, 18623, 12606 ####[facility] [place] [address], [facility] Potassium molar conc 4.2 mmol/L Normal 3.5-5.1 [facility] Comment on above: Order Comment: No: D o not add to previous draw Performed By: #### 1 0070, 67690, 36564 ####[facility] [place] [address], [facility] Sodium 134 mmol/L Low 136-145 [facility] Comment on above: Order Comment: No: D o not add to previous draw Performed By: #### 1 0070, 16476, 46192 ####[facility] [place] [address], [facility] Urea nitrogen 18 mg/dL Normal 7-25 [facility] Comment on above: Order Comment: No: D o not add to previous draw Performed By: #### 1 0070, 06042, 59979 ####[facility] CBC COMPLETE BLOOD COUNTon 0 08-25-2016 Erythrocyte distribution width Auto Ratio (RBC) 12.7 % Normal 11.5-16.9 [facility] Comment on above: Order Comment: No: D o not add to previous draw Performed By: #### 5 0608 ####[facility] Erythrocytes (RBC) 3.23 mill/mm3 Low 3.50-5.50 [facility] Comment on above: Order Comment: No: D o not add to previous draw Performed By: #### 5 0608 ####[place] [address] [address] Hematocrit (HCT) 27.4 % Low 36.0-48.0 [facility] Comment on above: Order Comment: No: D o not add to previous draw Performed By: #### 5 0608 ####[place] [address] [address] Hemoglobin mass conc (Bld) 9.2 g/dL Low 12.0-15.0 [facility] Comment on above: Order Comment: No: D o not add to previous draw Performed By: #### 5 0608 ####[facility] MCH 28.4 pg Normal 24.0-32.0 [facility] Comment on above: Order Comment: No: D o not add to previous draw Performed By: #### 5 0608 ####[address] MCHC mass conc (RBC) 33.5 g/dL Normal 32.0-36.0 [facility] Comment on above: Order Comment: No: D o not add to previous draw Performed By: #### 5 0608 ####[facility]3000 [facility].[address] MCV 84.8 fL Normal 80.0-100.0 [facility] Comment on above: Order Comment: No: D o not add to previous draw Performed By: #### 5 0608 ####[facility] [facility] [place] [address], [facility] PLAT CNT 226 Thou/mm3 Normal 100-400 [facility] Comment on above: Order Comment: No: D o not add to previous draw Performed By: #### 5 0608 ####[facility]3000 [facility].[address] WBC (Leukocytes) 6.5 Thou/mm3 Normal 4.0-10.0 The [facility] Comment on above: Order Comment: No: D o not add to previous draw Performed By: #### 5 [id number] ####[facility].[address] MAGNESIUM BLOODon 08-25-2016 Magnesium 1.4 mg/dL Low 1.9-2.7 [facility] Comment on above: Order Comment: No: D o not add to previous draw Performed By: #### 1 0070, [id number], [id number] ####[facility].[address] PHOSPHORUS BLOODon 7 Phosphate 3.4 mg/dL Normal 2.5-5.0 [facility] Comment on above: Order Comment: No: D o not add to previous draw Performed By: #### 1 0070, [id number], [id number] ####[facility].[address] POC GLUCOSE LABon 08-25-2016 Glucose mass conc 88 mg/dL Normal 70-100 [facility] Comment on above: Performed By: #### 8 [id number] ####[facility] [place], [place] [id number] [place] [address] Glucose mass conc 215 mg/dL High 70-100 [facility] Comment on above: Performed By: #### 8 [id number] ####[facility] [place] [address], [facility] Glucose mass conc 353 mg/dL High 70-100 [facility] Comment on above: Performed By: #### 8 [id number] ####[facility] [place], [place] [address] [place] [address] *ANAEROBIC CULTUREon 017 *ANAEROBIC CULTURE Clinical Report: (D) Specimen/Source: TISSUE/INTRAOP SPEC Collected: 08/24/2016 15:16 Status: Final Last Updated: 09/04/2016 07:57 (1) #2 Bone biopsy. ISO (Final) Prevotella nigrescens Beta-Lactamase Positive Identification performed by the [facility] Molecular Department. ISO (Final) Bacteroides ovatus group Beta-Lactamase Positive ISO (Final) Prevotella buccae (Bacteroides) Beta-Lactamase Positive Result changed by [facility] on 09/04/2016 07:57. The previous result was: ISO (Prelim) ^Anaerobic Gram Negative Bacilli Isolated ^Isolate Sent to the [facility] Molecular Department for Identification Result [facility] by [facility] on 08/30/2016 10:03. The previous result was: ISO (Prelim) Normal The [facility] Comment on above: Order Comment: #2 Isidoro ne biopsy. Performed By: #### [id number] ####[facility] [place], [place] [id number] [place] [address] *TISSUE CULTUREon 08-24-2016 *TISSUE CULTURE Clinical Report: [...] was: ISO (Prelim) Normal [facility] Comment on above: Order Comment: #2 Isidoro ne biopsy. Performed By: #### 3 [id number] ####[facility] BACTERIAL ID: 16S rRNA GENE SEQUENCINGon 08-24-2016 16S BACTERIAL ID Prevotella nigrescens Normal [facility] Comment on above: Order Comment: [place] te #1 Performed By: #### 8 [id number] ####[facility] 16S INTERPRETATION Normal [facility] Comment on above: Order Comment: [place] te #1 Result Comment: INTE RPRETATION: Bacterial Sequencing of the 16S rRNA gene from anisolated colony from the patient's bone biopsy culture, demonstratedthat the organism is genotypically most closely related to Prevotellanigrescens. This genotypic result is consistent with the microscopycolony characteristics, and biochemical tests. See microbiologyaccession [id number] for culture results.METHODOLOGY: DNA was extracted from a pure colony of theculture-isolated organism. Polymerase chain reaction (PCR) andsequencing was performed using primers targeting the 16SrRNA gene. Thesequence was then compared to a database of sequences for knownorganisms to identify a match.REFERENCE: 1) Interpretive Criteria for Identification of Bacteria andFungi by DNA Target Sequencing; Approved Guideline. CLSI [id number]. MOISÉS Chavez: Clinical and Laboratory Standards [place]; 2008.This molecular test was developed and its performance validated by [facility]. It has not been approved by theU.S. Food and Drug Administration. This laboratory is certified underthe Clinical Laboratory Improvement Amendments of 1988 (CLIA '88) asqualified to perform this type of high complexity clinical laboratorytesting. Performed By: #### 8 [id number] ####[facility] [place] [address], [facility] SIGNED BY: Normal [facility] Comment on above: Order Comment: [place] te #1 Result Comment: Elec tronically signed by: Ángel Watson M.D., Ph.DChief Resident, Department of Pathology Performed By: #### [id number] ####[facility] [place] [address], [facility] POC GLUCOSE LABon 08-24-2016 Glucose mass conc 242 mg/dL High 70-100 [facility] Comment on above: Performed By: #### 8 [id number] ####[facility] [place] [address], [facility] Glucose mass conc 235 mg/dL High 70-100 [facility] Comment on above: Performed By: #### 8 [id number] ####[facility] [place] [address], [facility] Glucose mass conc 249 mg/dL High 70-100 [facility] Comment on above: Performed By: #### 8 [id number] ####[facility] [place] [address], [place] Glucose mass conc 211 mg/dL High 70-100 [facility] Comment on above: Performed By: #### 8 [id number] ####[facility] [place] [address], [facility] Encounters Encounter Date Encounter Type Care Provider Facility Start: 06-04-2022 End: 06-04-[address] JACK ROQUE Facility:[facility] Start: 04-27-2022 End: 04-27-[address] JACK ROQUE Facility:[facility] Start: 02-10-2018 End: 02-11-2018 Patient encounter procedure GANGA BARRIOS [facility] Start: 01-10-2018 End: 02-10-2018 Patient encounter procedure CRISTINA BROOKS [facility] Start: 12-05-2017 End: 12-06-2017 Patient encounter procedure NABEEL VIRAMONTES [facility] Start: 10-23-2016 End: 10-23-2016 Emergency department patient visit REFERRED SELF Facility:[facility] Start: 10-09-2016 End: 10-12-2016 Evaluation and management of inpatient REFERRED SELF Facility:[facility] Start: 10-03-2016 End: 10-04-2016 Ambulatory TIFFANIE SILVESTRE Facility:[facility] Start: 10-01-2016 End: 10-02-2016 Ambulatory TIFFANIE SILVESTRE Facility:[facility] Start: 08-25-2016 End: 08-30-2016 Evaluation and management of inpatient TIFFANIE SILVESTRE Facility:[facility] Procedures Date Procedure Procedure Detail [...] SILVESTRE Payers Date Payer Category Payer Medicaid [id number] 1961 Medicare [id number] Private Health Insurance [id number] Unknown [id number] [id number] [id number] Unknown [id number] [id number] [id number] Summary Purpose Family History No Family History Records FoundNo Family History Records FoundNo Family History Records Found Advance Directives No Advanced Directives Records FoundNo Advanced Directives Records FoundNo Advanced Directives Records Found Additional Source Comments INFORMATION SOURCE (unrecogn ized section and content) DATE CREATED AUTHOR 08/21/2017 [facility] DATE CREATED AUTHOR AUTHOR'S ORGANIZ ATION 02/16/2018 [facility] DATE CREATED AUTHOR AUTHOR'S ORGANIZ ATION 06/10/2022 [facility] [employer] [facility] FOR RECORDS PERTAINING TO PATIENTS WHO [...] BE BASED ON THE PRIMARY CLINICAL RECORDS. [employer] [facility]. provides no warranty or guarantee of the accuracy or completeness of information in this document.
[2023-11-29 09:38] LABS: Creatinine Urine Random 49.47 mg/dL (20.00-300.00); Microalbum Creatinine Ratio Ur 44.4 mg/g (0.0-29.9); Microalbumin Urine Random 2.2 mg/dL (<=30.0)
== END 2024-02-25 23:59 | disposition home or self-care (01) ==
LOC: LAB 23:00
PROVIDERS: PCP Internal Medicine; Visit Provider Internal Medicine
DX: K86.81 Exocrine pancreatic insufficiency (principal); E10.69 Type 1 diabetes mellitus with other specified complication
CPT/HCPCS: 82043; 82570

== ENCOUNTER 2024-09-17 23:59 | Outpatient (REF) | payer MEDICARE, MEDICAID, SELFPAY | END 2024-09-18 | disposition home or self-care (01) | LOC: LAB 23:59 | PROVIDERS: PCP Internal Medicine; Visit Provider Internal Medicine | DX: D64.9 Anemia, unspecified (principal) | CPT/HCPCS: G0328 ==